=== PATIENT | female | born 1960 | race Caucasian/White ===

== ENCOUNTER 2016-05-11 13:35 | Emergency (ER) | payer MEDICARE, MEDICAID ==
[2016-05-11 15:29] VITALS: BP 140/95
--- NOTE | 2016-05-11 15:38 | UC ---
elena Gonzalez Timothy, scribed for Saritha Portillo MD on 05/11/16 at 1456 . Ear Complaint HPI - HPI Summary HPI Summary: Ruba Flores is a 55 yo female presenting to [facility] with left intermittent 6/10 ear pain for the past week, with itching. 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 She is on medication for HTN which she took earlier today. She states she feels like her ear is dry and itchy. She has not taken any medication for pain. 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 She also notes that her eyes are dry. Her Hx includes deafness, HLD, HTN, asthma, bronchitis, GERD per her mother, DM, bipolar disorder. - History of Current Complaint Chief Complaint: UCEar Stated Complaint: EAR PAIN Time Seen by Provider: 05/11/16 14:51 Hx Obtained From: Patient Hx Last Menstrual Period: "I don't get them any more." Onset/Duration: Gradual Onset, Lasting Weeks, Still Present Severity Initially: Moderate Severity Currently: Moderate Pain Intensity: 6 Pain Scale Used: 0-10 Numeric Aggravating Factors: Nothing Alleviating Factors: Nothing Associated Signs/Symptoms: Positive: Hearing Loss - chronic deafness Related History: Other (Noted In Comments) - pt is deaf - Allergies/Home Medications Allergies/Adverse Reactions: Allergies Allergy/AdvReac Type Severity Reaction Status Date / Time Clarithromycin [From Biaxin] Allergy Severe Rash Verified 05/11/16 15:16 Latex Allergy Severe Rash Verified 05/11/16 15:16 Morphine and Related Allergy Severe Unknown Verified 05/11/16 15:16 Reaction Details Penicillins Allergy Severe Rash Verified 05/11/16 15:16 Sulfa Drugs Allergy Severe Unknown Verified 05/11/16 15:16 Reaction Details Tramadol Allergy Severe Difficulty Verified 05/11/16 15:16 Breathing Acetaminophen [From Vicodin] AdvReac Severe Vomiting Verified 05/11/16 15:16 Hydrocodone [From Vicodin] AdvReac Severe Vomiting Verified 05/11/16 15:16 cillins Allergy Severe Unknown Uncoded 05/11/16 15:16 Reaction Details emycins Allergy Severe Unknown Uncoded 05/11/16 15:16 Reaction Details NUTS Allergy Severe Rash Uncoded 05/11/16 15:16 TAPE: SILK OR ADHESIVE Allergy Severe Rash Uncoded 05/11/16 15:16 Home Medications: Home Medications Atorvastatin* [Lipitor 10 MG*] 30 mg DAILY 05/11/16 [History Confirmed 05/11/16] Budesonide NEB* [Pulmicort Neb*] 05/11/16 [History] Losartan TAB* [Cozaar TAB*] 50 mg DAILY 05/11/16 [History Confirmed 05/11/16] Pioglitazone TAB* [Actos TAB*] 1 tab DAILY 05/11/16 [History Confirmed 05/11/16] Rizatriptan (NF) [Maxalt(NF)] 05/11/16 [History] PMH/Surg Hx/FS Hx/Imm Hx Endocrine History Of: Reports: Diabetes Cardiovascular History Of: Reports: Hypertension Respiratory History Of: Reports: Asthma, Bronchitis - Hx OF, LAST EPISODE POSSIBLY 2011 GI/ History Of: Reports: Gastroesophageal Reflux Psychological History Of: Reports: Bipolar Disorder - Surgical History Surgical History: Yes Surgery Procedure, Year, and Place: tonsils; breast reduction; tubal ligation; Gall Bladder, R wrist. LEFT Shoulder. Surgery under her Chin, Cant recall for what. right arm surgery 2013. pins removed from elbow 2014 - Family History Known Family History: Positive: Cardiac Disease, Hypertension, Diabetes, Other - Asthma - Social History Occupation: Disabled Alcohol Use: None Alcohol Amount: MAYBE A FEW A YEAR Substance Use Type: None Smoking Status (MU): Never Smoked Tobacco Have You Smoked in the Last Year: No When Did the Patient Quit Smoking/Using Tobacco: 2010 Household Exposure Type: Cigarettes - Immunization History Most Recent Influenza Vaccination: 12/09 Hx Tetanus, Diphtheria Vaccination: Yes Vaccination Up to Date: Yes Review of Systems Constitutional: Negative Skin: Negative Eyes: Other - eye dryness ENT: Ear Ache - Left Respiratory: Negative Cardiovascular: Negative Gastrointestinal: Negative Genitourinary: Negative Motor: Negative Neurovascular: Negative Musculoskeletal: Negative Neurological: Negative Psychological: Negative All Other Systems Reviewed And Are Negative: Yes Physical Exam Triage Information Reviewed: Yes Appearance: No Pain Distress, Well-Nourished, Ill-Appearing Vital Signs: Initial Vital Signs Temp 98.6 F 05/11/16 14:53 Pulse 71 05/11/16 14:53 Resp 18 05/11/16 14:53 BP 167/102 05/11/16 14:53 Pulse Ox 99 05/11/16 14:53 Elevated BP noted Vital Signs Reviewed: Yes Eyes: Positive: Conjunctiva Clear. Negative: Discharge ENT: Positive: TMs normal - Right side, TM red - left side. Negative: Hearing grossly normal Neck: Positive: Supple, Nontender, No Lymphadenopathy Respiratory: Positive: Lungs clear, Normal breath sounds, No respiratory distress Cardiovascular: Positive: RRR, No Murmur, Pulses Normal, Brisk Capillary Refill Musculoskeletal: Positive: Strength Intact, ROM Intact Neurological: Positive: Alert, Muscle Tone Normal Psychological Exam: Normal Skin: Positive: Other - hirsutism Re-Evaluation - Re-Evaluation First Eval Re-Evaluation Time: 15:28 Change: Improved Comment: Pt's BP is now 140/95 Ear Complaint Course/Dx - Course Course Of Treatment: Ruba Flores is a 55 yo deaf female presenting with 5/10 pain in her left ear for the past few weeks. In room, note high BP of 167/102. Her allergies are noted. After clinical examination, she will be discharged home with otitis media of the left ear and appropriate instructions. - Differential Dx/Diagnosis Provider Diagnoses: otitis media of the left ear Discharge - Discharge Plan Condition: Stable Disposition: HOME Prescriptions: DOXYcycline CAP(*) [DOXYcycline 100MG CAP(*)] 100 mg PO BID #20 cap Patient Education Materials: Otitis Media (ED) Referrals: Sapna Sinha MD [Primary Care Provider] - 2 Days Additional Instructions: Please follow up with your primary care physician within 2 days regarding your visit to urgent care today. When you go to picker operator your prescription, ask the pharmacist to show you the selection of saline eye drops to help with the dryness in your eyes. Return to urgent care or the emergency department with any new or recurring symptoms. The documentation as recorded by the elena martins Timothy accurately reflects the service I personally performed and the decisions made by , Saritha Portillo MD.
== END 2016-05-11 15:45 | disposition home or self-care (01) ==
LOC: UCEAST 13:35
DX: H66.92 Otitis media, unspecified, left ear (principal); H91.90 Unspecified hearing loss, unspecified ear; I10 Essential (primary) hypertension; Z88.1 Allergy status to other antibiotic agents; Z88.5 Allergy status to narcotic agent; Z88.0 Allergy status to penicillin; Z88.2 Allergy status to sulfonamides; Z77.22 Contact with and (suspected) exposure to environmental tobacco smoke (acute) (chronic)
CPT/HCPCS: 99212; G0463

== ENCOUNTER 2016-05-21 19:11 | Emergency (ER) | payer MEDICARE, MEDICAID ==
[2016-05-21 20:17] VITALS: BP 122/62
[2016-05-21] MEDS ORDERED: DOXYcycline CAP(*) 100 MG PO ONE (20:59)
--- NOTE | 2016-05-21 21:09 | UC ---
Ear Complaint HPI - History of Current Complaint Chief Complaint: UCEar Stated Complaint: EAR ACHE Time Seen by Provider: 05/21/16 20:42 Hx Obtained From: Patient, [employer] - via iPad ([place] Sign Language) Hx Last Menstrual Period: "I don't get them any more." Onset/Duration: Gradual Onset - has had L earche for 1 week, no better and today she feels "throbbing" in L ear Severity Initially: Mild Severity Currently: Moderate Associated Signs/Symptoms: Negative: Discharge, URI Symptoms - Allergies/Home Medications Allergies/Adverse Reactions: Allergies Allergy/AdvReac Type Severity Reaction Status Date / Time Clarithromycin [From Biaxin] Allergy Severe Rash Verified 05/11/16 15:16 Latex Allergy Severe Rash Verified 05/11/16 15:16 Morphine and Related Allergy Severe Unknown Verified 05/11/16 15:16 Reaction Details Penicillins Allergy Severe Rash Verified 05/11/16 15:16 Sulfa Drugs Allergy Severe Unknown Verified 05/11/16 15:16 Reaction Details Tramadol Allergy Severe Difficulty Verified 05/11/16 15:16 Breathing Acetaminophen [From Vicodin] AdvReac Severe Vomiting Verified 05/11/16 15:16 Hydrocodone [From Vicodin] AdvReac Severe Vomiting Verified 05/11/16 15:16 cillins Allergy Severe Unknown Uncoded 05/11/16 15:16 Reaction Details emycins Allergy Severe Unknown Uncoded 05/11/16 15:16 Reaction Details NUTS Allergy Severe Rash Uncoded 05/11/16 15:16 TAPE: SILK OR ADHESIVE Allergy Severe Rash Uncoded 05/11/16 15:16 PMH/Surg Hx/FS Hx/Imm Hx Previously Healthy: Yes Endocrine History Of: Reports: Diabetes Denies: Thyroid Disease, Hyperthyroidism, Hypothyroidism, Dyslipidemia Cardiovascular History Of: Reports: Hypertension Denies: Cardiac Disorders, Pacemaker/ICD, Myocardial Infarction, Congestive Heart Failure, Atrial Fibrillation, Deep Vein Thrombosis, Bleeding Disorders Respiratory History Of: Reports: Asthma, Bronchitis - Hx OF, LAST EPISODE POSSIBLY 2011 Denies: COPD, Pneumonia, Pulmonary Embolism GI/ History Of: Reports: Gastroesophageal Reflux Denies: Ulcer, Gastrointestinal Bleed, Gall Bladder Disease, Kidney Stones, Diverticulitis, Renal Disease, Urosepsis Neurological History Of: Denies: TIA, CVA, Dementia, Seizures, Migraine Psychological History Of: Reports: Bipolar Disorder Denies: Anxiety, Depression, Schizophrenia, Post Traumatic Stress Disorder Cancer History Of: Denies: Lung Cancer, Colorectal Cancer, Breast Cancer, Prostate Cancer, Cervical Cancer Other History Of: Negative For: HIV, Hepatitis B, Hepatitis C, Anticoagulant Therapy - Surgical History Surgical History: Yes Surgery Procedure, Year, and Place: tonsils; breast reduction; tubal ligation; Gall Bladder, R wrist. LEFT Shoulder. Surgery under her Chin, Cant recall for what. right arm surgery 2013. pins removed from elbow 2014 - Family History Known Family History: Positive: Cardiac Disease, Hypertension, Diabetes, Other - Asthma - Social History Occupation: Disabled Lives: With Family Alcohol Use: None Alcohol Amount: MAYBE A FEW A YEAR Substance Use Type: None Smoking Status (MU): Never Smoked Tobacco Have You Smoked in the Last Year: No When Did the Patient Quit Smoking/Using Tobacco: 2010 Household Exposure Type: Cigarettes - Immunization History Most Recent Influenza Vaccination: 12/09 Hx Tetanus, Diphtheria Vaccination: Yes Vaccination Up to Date: Yes Review of Systems Constitutional: Negative Eyes: Negative ENT: Ear Ache Respiratory: Negative Cardiovascular: Negative Gastrointestinal: Negative Neurological: Negative Psychological: Negative All Other Systems Reviewed And Are Negative: Yes Physical Exam Triage Information Reviewed: Yes Appearance: Well-Appearing, No Pain Distress, Well-Nourished - redaing book on arrival Vital Signs: Initial Vital Signs Temp 98.4 F 05/21/16 20:11 Pulse 56 05/21/16 20:11 Resp 18 05/21/16 20:11 BP 122/62 05/21/16 20:11 Pulse Ox 100 05/21/16 20:11 Vital Signs Reviewed: Yes Eyes: Positive: Conjunctiva Clear ENT: Positive: Pharynx normal, TM bulging - Left TM-slightly injected R ear pearly, normal light reflex, TM dull. Negative: Nasal congestion Neck exam: Normal Neck: Positive: No Lymphadenopathy Respiratory Exam: Normal Respiratory: Positive: Lungs clear Cardiovascular Exam: Normal Cardiovascular: Positive: RRR Neurological: Positive: Alert Psychological Exam: Normal Skin Exam: Normal Ear Complaint Course/Dx - Differential Dx/Diagnosis Differential Diagnosis/HQI/PQRI: Cerumen Impaction, Foreign Body, Otitis Externa , Otitis Media, URI Provider Diagnoses: otalgia Discharge - Discharge Plan Condition: Good Disposition: HOME Prescriptions: DOXYcycline CAP(*) [DOXYcycline 100MG CAP(*)] 100 mg PO BID #20 cap Patient Education Materials: Earache (ED) Referrals: Sapna Sinha MD [Primary Care Provider] - 5 Days (if no better) Additional Instructions: take antibiotic as directed
== END 2016-05-21 21:25 | disposition home or self-care (01) ==
LOC: UCEAST 19:11
DX: H92.09 Otalgia, unspecified ear (principal); Z90.49 Acquired absence of other specified parts of digestive tract; Z88.1 Allergy status to other antibiotic agents; Z88.5 Allergy status to narcotic agent; Z88.6 Allergy status to analgesic agent; Z88.0 Allergy status to penicillin; Z88.2 Allergy status to sulfonamides; Z87.891 Personal history of nicotine dependence
CPT/HCPCS: 99212; A9270-GY; G0463

== ENCOUNTER 2016-06-11 18:49 | Emergency (ER) | payer MEDICARE ==
[2016-06-11 20:54] VITALS: BP 150/90
--- NOTE | 2016-06-11 20:57 | UC ---
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 [place] Sign Hx Last Menstrual Period: "I don't get them any more." ?: No Onset/Duration: Sudden Onset, Lasting Weeks, Still Present Timing: Constant Onset Severity: Moderate Current Severity: Moderate Location: Discrete - lower abdomen and labia Character: Pain, Redness Aggravating: Nothing Alleviating: Nothing Associated Signs & Symptoms: Positive: Rash - lower abdomen-diffuse erythema with scratch mcf[place], right and labia majoria, irratated and red - Allergy/Home Medications Allergies/Adverse Reactions: Allergies Allergy/AdvReac Type Severity Reaction Status Date / Time Clarithromycin [From Biaxin] Allergy Severe Rash Verified 06/11/16 20:57 Latex Allergy Severe Rash Verified 06/11/16 20:57 Morphine and Related Allergy Severe Unknown Verified 06/11/16 20:57 Reaction Details Penicillins Allergy Severe Rash Verified 06/11/16 20:57 Sulfa Drugs Allergy Severe Unknown Verified 06/11/16 20:57 Reaction Details Tramadol Allergy Severe Difficulty Verified 06/11/16 20:57 Breathing Acetaminophen [From Vicodin] AdvReac Severe Vomiting Verified 06/11/16 20:57 Hydrocodone [From Vicodin] AdvReac Severe Vomiting Verified 06/11/16 20:57 cillins Allergy Severe Unknown Uncoded 06/11/16 20:57 Reaction Details emycins Allergy Severe Unknown Uncoded 06/11/16 20:57 Reaction Details NUTS Allergy Severe Rash Uncoded 06/11/16 20:57 TAPE: SILK OR ADHESIVE Allergy Severe Rash Uncoded 06/11/16 20:57 Review of Systems Constitutional: Negative Skin: Rash Eyes: Negative ENT: Negative Respiratory: Negative Cardiovascular: Negative Gastrointestinal: Negative Genitourinary: Negative Motor: Negative Neurovascular: Negative Musculoskeletal: Negative Neurological: Negative Psychological: Negative All Other Systems Reviewed And Are Negative: Yes PMH/Surg Hx/FS Hx/Imm Hx Previously Healthy: No Endocrine History Of: Reports: Diabetes Denies: Thyroid Disease, Hyperthyroidism, Hypothyroidism, Dyslipidemia Cardiovascular History Of: Reports: Hypertension Denies: Cardiac Disorders, Pacemaker/ICD, Myocardial Infarction, Congestive Heart Failure, Atrial Fibrillation, Deep Vein Thrombosis, Bleeding Disorders Respiratory History Of: Reports: Asthma, Bronchitis - Hx OF, LAST EPISODE POSSIBLY 2011 Denies: COPD, Pneumonia, Pulmonary Embolism GI/ History Of: Reports: Gastroesophageal Reflux Denies: Ulcer, Gastrointestinal Bleed, Gall Bladder Disease, Kidney Stones, Diverticulitis, Renal Disease, Urosepsis Neurological History Of: Denies: TIA, CVA, Dementia, Seizures, Migraine Psychological History Of: Reports: Bipolar Disorder Denies: Anxiety, Depression, Schizophrenia, Post Traumatic Stress Disorder Cancer History Of: Denies: Lung Cancer, Colorectal Cancer, Breast Cancer, Prostate Cancer, Cervical Cancer Other History Of: Negative For: HIV, Hepatitis B, Hepatitis C, Anticoagulant Therapy - Surgical History Surgical History: Yes Surgery Procedure, Year, and Place: tonsils; breast reduction; tubal ligation; Gall Bladder, R wrist. LEFT Shoulder. Surgery under her Chin, Cant recall for what. right arm surgery 2013. pins removed from elbow 2014 - Family History Known Family History: Positive: Cardiac Disease, Hypertension, Diabetes, Other - Asthma - Social History Occupation: Disabled Lives: With Family Alcohol Use: None Alcohol Amount: MAYBE A FEW A YEAR Substance Use Type: None Smoking Status (MU): Never Smoked Tobacco Have You Smoked in the Last Year: No When Did the Patient Quit Smoking/Using Tobacco: 2010 Household Exposure Type: Cigarettes - Immunization History Most Recent Influenza Vaccination: 12/09 Hx Tetanus, Diphtheria Vaccination: Yes Vaccination Up to Date: Yes Physical Exam Triage Information Reviewed: Yes Appearance: Well-Appearing, No Pain Distress, Well-Nourished Vital Signs: Initial Vital Signs Temp 97.1 F 06/11/16 20:44 Pulse 67 06/11/16 20:44 Resp 16 06/11/16 20:44 BP 150/90 06/11/16 20:44 Pulse Ox 100 06/11/16 20:44 Vital Signs Reviewed: Yes Eye Exam: Normal Eyes: Positive: Conjunctiva Clear ENT Exam: Normal ENT: Positive: Normal ENT inspection, Hearing grossly normal, TMs normal. Negative: Nasal congestion, Nasal drainage, Trismus, Muffled/hoarse voice Neck exam: Normal Neck: Positive: Supple, Nontender, No Lymphadenopathy Respiratory Exam: Normal Respiratory: Positive: Chest non-tender, No respiratory distress, No accessory muscle use Cardiovascular Exam: Normal Cardiovascular: Positive: RRR, No Murmur, Pulses Normal Musculoskeletal Exam: Normal Musculoskeletal: Positive: Strength Intact, ROM Intact, No Edema Neurological Exam: Normal Neurological: Positive: Alert, Muscle Tone Normal Psychological Exam: Normal Skin Exam: Normal Skin: Positive: rashes Course/Dx - Course Course Of Treatment: triamcin, for abdomen, nystatin for labia, gentle soap and water wash follow with Dr. Sinha in 7-10 days - Differential Diagnoses - Skin Complaint Differential Diagnoses: Cellulitis, Contact Dermatitis, Impetigo, Local Allergic Reaction - Diagnoses Provider Diagnoses: dermititis labia and lower abdomen Discharge - Discharge Plan Condition: Stable Disposition: HOME Prescriptions: Nystatin TOP POWDER* 1 applic TOPICAL TID #1 btl Triamcinolone 0.1% CREAM(NF) [Kenalog Cream 0.1%(NF)] 1 applic TOPICAL TID #45 gm Patient Education Materials: Hydrocortisone (On the skin), Vulvovaginal Candidiasis (ED), Dermatitis (ED) Referrals: Sapna Sinha MD [Primary Care Provider] - If Needed
== END 2016-06-11 21:53 | disposition home or self-care (01) ==
LOC: UCEAST 18:49
DX: L30.9 Dermatitis, unspecified (principal); Z88.5 Allergy status to narcotic agent; Z88.2 Allergy status to sulfonamides; Z88.0 Allergy status to penicillin
CPT/HCPCS: 99212; G0463

== ENCOUNTER 2016-08-26 21:07 | Emergency (ER) | payer MEDICARE, MEDICAID ==
[2016-08-26 21:30] VITALS: BP 127/75
--- NOTE | 2016-08-26 21:42 | UC ---
Ear Complaint HPI - HPI Summary HPI Summary: 2 weeks of ear pressure no fevers or sore throat - History of Current Complaint Chief Complaint: UCEar Stated Complaint: EAR PAIN AND PRESSURE Time Seen by Provider: 08/26/16 21:31 Hx Obtained From: Patient Hx Last Menstrual Period: "I don't get them any more." ?: No Onset/Duration: Gradual Onset, Lasting Weeks - 2, Still Present Severity Initially: Moderate Severity Currently: Moderate Pain Intensity: 5 Pain Scale Used: 0-10 Numeric Aggravating Factors: Nothing Alleviating Factors: Nothing - Allergies/Home Medications Allergies/Adverse Reactions: Allergies Allergy/AdvReac Type Severity Reaction Status Date / Time Clarithromycin [From Biaxin] Allergy Severe Rash Verified 08/26/16 21:56 Latex Allergy Severe Rash Verified 08/26/16 21:56 Morphine and Related Allergy Severe Unknown Verified 08/26/16 21:56 Reaction Details Penicillins Allergy Severe Rash Verified 08/26/16 21:56 Sulfa Drugs Allergy Severe Unknown Verified 08/26/16 21:56 Reaction Details Tramadol Allergy Severe Difficulty Verified 08/26/16 21:56 Breathing Acetaminophen [From Vicodin] AdvReac Severe Vomiting Verified 08/26/16 21:56 Hydrocodone [From Vicodin] AdvReac Severe Vomiting Verified 08/26/16 21:56 cillins Allergy Severe Unknown Uncoded 08/26/16 21:56 Reaction Details emycins Allergy Severe Unknown Uncoded 08/26/16 21:56 Reaction Details NUTS Allergy Severe Rash Uncoded 08/26/16 21:56 TAPE: SILK OR ADHESIVE Allergy Severe Rash Uncoded 08/26/16 21:56 PMH/Surg Hx/FS Hx/Imm Hx Previously Healthy: No Endocrine History: Diabetes, Dyslipidemia GI/ History: Gastroesophageal Reflux Other History Of: Negative For: HIV, Hepatitis B, Hepatitis C, Anticoagulant Therapy - Surgical History Surgical History: Yes Surgery Procedure, Year, and Place: tonsils; breast reduction; tubal ligation; Gall Bladder, R wrist. LEFT Shoulder. Surgery under her Chin, Cant recall for what. right arm surgery 2013. pins removed from elbow 2014 - Family History Known Family History: Positive: Cardiac Disease, Hypertension, Diabetes, Other - Asthma - Social History Occupation: Disabled Lives: With Family Alcohol Use: None Alcohol Amount: MAYBE A FEW A YEAR Substance Use Type: None Smoking Status (MU): Never Smoked Tobacco Have You Smoked in the Last Year: No When Did the Patient Quit Smoking/Using Tobacco: 2010 Household Exposure Type: Cigarettes - Immunization History Most Recent Influenza Vaccination: 12/09 Hx Tetanus, Diphtheria Vaccination: Yes Vaccination Up to Date: Yes Review of Systems Constitutional: Negative Skin: Negative Eyes: Negative ENT: Ear Ache Respiratory: Negative Cardiovascular: Negative Gastrointestinal: Negative Genitourinary: Negative Motor: Negative Neurovascular: Negative Musculoskeletal: Negative Neurological: Negative Psychological: Negative All Other Systems Reviewed And Are Negative: Yes Physical Exam Triage Information Reviewed: Yes Appearance: No Pain Distress, Ill-Appearing - chronic, Obese Vital Signs: Initial Vital Signs Temp 97.9 F 08/26/16 21:27 Pulse 84 08/26/16 21:27 Resp 18 08/26/16 21:27 BP 127/75 08/26/16 21:27 Pulse Ox 99 08/26/16 21:27 Vital Signs Reviewed: Yes Eye Exam: Normal Eyes: Positive: Conjunctiva Clear ENT Exam: Normal ENT: Positive: Normal ENT inspection, Hearing grossly normal, Pharynx normal, Nasal congestion, Nasal drainage, TM dull. Negative: Tonsillar swelling, Tonsillar exudate, Trismus, Muffled/hoarse voice Dental Exam: Other - no teeth Neck exam: Normal Neck: Positive: Supple, Nontender Respiratory Exam: Normal Respiratory: Positive: Chest non-tender, No respiratory distress, No accessory muscle use Cardiovascular Exam: Normal Cardiovascular: Positive: RRR, Pulses Normal, Brisk Capillary Refill Musculoskeletal Exam: Normal Musculoskeletal: Positive: Strength Intact, ROM Intact, No Edema Neurological Exam: Normal Neurological: Positive: Alert, Muscle Tone Normal Psychological Exam: Normal Skin Exam: Normal Ear Complaint Course/Dx - Course Course Of Treatment: flonase, zyrtec , increase fluids follow with pcp - Differential Dx/Diagnosis Differential Diagnosis/HQI/PQRI: Otitis Externa, Otitis Media, Trauma, URI Provider Diagnoses: B/l Serrous otitis, Hearing impaired Discharge - Discharge Plan Condition: Stable Disposition: HOME Prescriptions: Cetirizine HCl [Zyrtec Allergy 10 MG TAB] 10 mg PO DAILY #30 cap Fluticasone NASAL SPRAY 50MCG* [Flonase NASAL SPRAY 50MCG*] 2 spray BOTH NARES DAILY #1 btl Patient Education Materials: Serous Otitis Media (ED), How to Use Nasal [place] ( ED) Referrals: Sapna Sinha MD [Primary Care Provider] - 1 Week
== END 2016-08-26 22:30 | disposition home or self-care (01) ==
LOC: UCEAST 21:07
DX: H65.03 Acute serous otitis media, bilateral (principal); H91.90 Unspecified hearing loss, unspecified ear
CPT/HCPCS: 99211; G0463

== ENCOUNTER 2016-09-17 15:33 | Emergency (ER) | payer MEDICARE, MEDICAID ==
--- NOTE | 2016-09-17 17:27 | UC ---
Complaint Female HPI - HPI Summary HPI Summary: 2-3 DAYS OF BURNING WITH URINATION, URINARY FREQUENCY AND URGENCY. MILD ABDOMINAL PAIN. NO FEVER, NAUSEA OR BACK PAIN. - History Of Current Complaint Chief Complaint: UCGU Stated Complaint: BURNING URINATION Time Seen by Provider: 09/17/16 16:48 Hx Obtained From: Patient Hx Last Menstrual Period: "I don't get them any more." Onset/Duration: Gradual Onset, Lasting Days, Still Present Timing: Constant Severity Initially: Moderate Severity Currently: Moderate Pain Intensity: 6 Pain Scale Used: 0-10 Numeric Character: Burning Aggravating Factor(s): Urination Alleviating Factor(s): Nothing Associated Signs And Symptoms: Positive: Negative - Allergies/Home Medications Allergies/Adverse Reactions: Allergies Allergy/AdvReac Type Severity Reaction Status Date / Time Clarithromycin [From Biaxin] Allergy Severe Rash Verified 09/17/16 17:16 Latex Allergy Severe Rash Verified 09/17/16 17:16 Morphine and Related Allergy Severe Unknown Verified 09/17/16 17:16 Reaction Details Penicillins Allergy Severe Rash Verified 09/17/16 17:16 Sulfa Drugs Allergy Severe Unknown Verified 09/17/16 17:16 Reaction Details Tramadol Allergy Severe Difficulty Verified 09/17/16 17:16 Breathing Acetaminophen [From Vicodin] AdvReac Severe Vomiting Verified 09/17/16 17:16 Hydrocodone [From Vicodin] AdvReac Severe Vomiting Verified 09/17/16 17:16 cillins Allergy Severe Unknown Uncoded 09/17/16 17:16 Reaction Details emycins Allergy Severe Unknown Uncoded 09/17/16 17:16 Reaction Details NUTS Allergy Severe Rash Uncoded 09/17/16 17:16 TAPE: SILK OR ADHESIVE Allergy Severe Rash Uncoded 09/17/16 17:16 PMH/Surg Hx/FS Hx/Imm Hx Endocrine History: Diabetes Cardiovascular History: Hypertension Respiratory History: Asthma Other History Of: Negative For: HIV, Hepatitis B, Hepatitis C, Anticoagulant Therapy - Surgical History Surgical History: Yes Surgery Procedure, Year, and Place: tonsils; breast reduction; tubal ligation; Gall Bladder, R wrist. LEFT Shoulder. Surgery under her Chin, Cant recall for what. right arm surgery 2013. pins removed from elbow 2014 - Family History Known Family History: Positive: Cardiac Disease, Hypertension, Diabetes, Other - Asthma - Social History Alcohol Use: None Alcohol Amount: MAYBE A FEW A YEAR Substance Use Type: None Smoking Status (MU): Never Smoked Tobacco Have You Smoked in the Last Year: No When Did the Patient Quit Smoking/Using Tobacco: 2010 Household Exposure Type: Cigarettes - Immunization History Most Recent Influenza Vaccination: 12/09 Hx Tetanus, Diphtheria Vaccination: Yes Vaccination Up to Date: Yes Review of Systems Constitutional: Negative Respiratory: Negative Cardiovascular: Negative Gastrointestinal: Abdominal Pain Genitourinary: Dysuria, Frequency, Urgency All Other Systems Reviewed And Are Negative: Yes Physical Exam Triage Information Reviewed: Yes Appearance: Well-Appearing, No Pain Distress, Well-Nourished Vital Signs Reviewed: Yes Eyes: Positive: Conjunctiva Clear Neck: Positive: Supple Respiratory: Positive: No respiratory distress, No accessory muscle use Cardiovascular: Positive: Pulses Normal Abdomen Description: Positive: Nontender, Soft. Negative: CVA Tenderness (R), CVA Tenderness (L), Distended, Guarding Musculoskeletal: Positive: No Edema Neurological: Positive: Alert Psychological: Positive: Age Appropriate Behavior Skin: Negative: rashes Diagnostics - Laboratory Diagnostic Studies Completed/Ordered: URINE DIP SP GR. 1.030, 2+ LEUKS, 1+ PROTEIN Complaint Female Dx - Differential Dx/Diagnosis Provider Diagnoses: UTI Discharge - Discharge Plan Condition: Stable Disposition: HOME Prescriptions: Ciprofloxacin TAB* [Cipro 500 MG TAB*] 500 mg PO BID #10 tab Phenazopyridine TAB* [Pyridium TAB*] 200 mg PO TID #6 tab Patient Education Materials: Urinary Tract Infection in Women (ED) Referrals: Sapna Sinha MD [Primary Care Provider] - If Needed Additional Instructions: TAKE THE CIPRO FOR THE FULL 5 DAYS. I HAVE ALSO SENT IN A PRESCRIPTION FOR PYRIDIUM. THIS IS A BLADDER ANESTHETIC. IT MAKES THE DISCOMFORT LESS. IT ALSO TURNS YOUR URINE BRIGHT ORANGE. IF YOU DO NOT FEEL LIKE YOU NEED IT YOU DO NOT NEED TO GET IT, BUT IT IS THERE IF YOU WANT IT.
[2016-09-17 17:28] VITALS: BP 97/77
== END 2016-09-17 17:49 | disposition home or self-care (01) ==
LOC: UCEAST 15:33
DX: N39.0 Urinary tract infection, site not specified (principal); E11.9 Type 2 diabetes mellitus without complications; I10 Essential (primary) hypertension; J45.909 Unspecified asthma, uncomplicated; Z90.49 Acquired absence of other specified parts of digestive tract; Z88.5 Allergy status to narcotic agent; Z88.6 Allergy status to analgesic agent; Z88.0 Allergy status to penicillin; Z88.2 Allergy status to sulfonamides; Z88.1 Allergy status to other antibiotic agents; Z91.040 Latex allergy status; Z87.891 Personal history of nicotine dependence
CPT/HCPCS: 81003; 87086; 99212; G0463

== ENCOUNTER 2016-10-14 11:07 | Emergency (ER) | payer MEDICARE, MEDICAID ==
--- NOTE | 2016-10-14 13:35 | UC ---
Ear Complaint HPI - HPI Summary HPI Summary: PT SEEN BY PCP ABOUT 2 MONTHS AGO AND DX WITH SINUS INFECTION. SX HAVE PERSISTED AND PT STATES HER PCP ADVISED HER TO USE A NASAL SPRAY. SHE WENT TO PHARMACY AND PHARMACIST SUGGESTED AFRIN. PT STATES SHE DOES NOT THINK IT IS WORKING. IT "SORIANO" AND FEELS IT IS MAKING THINGS WORSE. NO FEVERS. NOSE IS NOT CONGESTED BUT STATES HER LEFT EAR POPS AND SHE FEELS LIKE SHE HAS PND. - History of Current Complaint Chief Complaint: UCRespiratory Stated Complaint: EAR COMPLAINT Time Seen by Provider: 10/14/16 12:56 Hx Obtained From: Patient Hx Last Menstrual Period: "I don't get them any more." Onset/Duration: Lasting Weeks, Still Present Severity Initially: Moderate Severity Currently: Moderate Pain Intensity: 0 Pain Scale Used: 0-10 Numeric Alleviating Factors: Nothing Associated Signs/Symptoms: Positive: URI Symptoms - Allergies/Home Medications Allergies/Adverse Reactions: Allergies Allergy/AdvReac Type Severity Reaction Status Date / Time Clarithromycin [From Biaxin] Allergy Severe Rash Verified 10/14/16 12:33 Latex Allergy Severe Rash Verified 10/14/16 12:33 Morphine and Related Allergy Severe Unknown Verified 10/14/16 12:33 Reaction Details Penicillins Allergy Severe Rash Verified 10/14/16 12:33 Sulfa Drugs Allergy Severe Unknown Verified 10/14/16 12:33 Reaction Details Tramadol Allergy Severe Difficulty Verified 10/14/16 12:33 Breathing Acetaminophen [From Vicodin] AdvReac Severe Vomiting Verified 10/14/16 12:33 Hydrocodone [From Vicodin] AdvReac Severe Vomiting Verified 10/14/16 12:33 cillins Allergy Severe Unknown Uncoded 10/14/16 12:33 Reaction Details emycins Allergy Severe Unknown Uncoded 10/14/16 12:33 Reaction Details NUTS Allergy Severe Rash Uncoded 10/14/16 12:33 TAPE: SILK OR ADHESIVE Allergy Severe Rash Uncoded 10/14/16 12:33 PMH/Surg Hx/FS Hx/Imm Hx - Additional Past Medical History Additional PMH: ALLERGIES Endocrine History: Diabetes Cardiovascular History: Hypertension Respiratory History: Asthma Other History Of: Negative For: HIV, Hepatitis B, Hepatitis C, Anticoagulant Therapy - Surgical History Surgical History: Yes Surgery Procedure, Year, and Place: tonsils; breast reduction; tubal ligation; Gall Bladder, R wrist. LEFT Shoulder. Surgery under her Chin, Cant recall for what. right arm surgery 2013. pins removed from elbow 2015 - Family History Known Family History: Positive: Cardiac Disease, Hypertension, Diabetes, Other - Asthma - Social History Alcohol Use: None Alcohol Amount: MAYBE A FEW A YEAR Substance Use Type: None Smoking Status (MU): Never Smoked Tobacco Have You Smoked in the Last Year: No When Did the Patient Quit Smoking/Using Tobacco: 2010 Household Exposure Type: Cigarettes - Immunization History Most Recent Influenza Vaccination: 12/09 Hx Tetanus, Diphtheria Vaccination: Yes Vaccination Up to Date: Yes Review of Systems Constitutional: Negative ENT: Ear Ache Respiratory: Negative Cardiovascular: Negative Gastrointestinal: Negative All Other Systems Reviewed And Are Negative: Yes Physical Exam Triage Information Reviewed: Yes Appearance: Well-Appearing, No Pain Distress, Well-Nourished Vital Signs: Initial Vital Signs Temp 97.6 F 10/14/16 12:28 Pulse 83 10/14/16 12:28 Resp 16 10/14/16 12:28 BP 139/80 10/14/16 12:28 Pulse Ox 98 10/14/16 12:28 Vital Signs Reviewed: Yes Eyes: Positive: Conjunctiva Clear ENT: Positive: Pharynx normal, TMs normal Neck: Positive: Supple, Nontender, No Lymphadenopathy Respiratory Exam: Normal Cardiovascular Exam: Normal Abdomen Description: Positive: Soft Musculoskeletal: Positive: No Edema Neurological: Positive: Alert Psychological: Positive: Age Appropriate Behavior Skin: Negative: rashes Ear Complaint Course/Dx - Differential Dx/Diagnosis Provider Diagnoses: EUSTACHIAN TUBE DYSFUNCTION Discharge - Discharge Plan Condition: Stable Disposition: HOME Prescriptions: Cetirizine* [ZyrTEC 10 MG TAB*] 10 mg PO DAILY #30 tab Fluticasone NASAL SPRAY 50MCG* [Flonase NASAL SPRAY 50MCG*] 2 spray BOTH NARES DAILY #1 btl Referrals: Sapna Sinha MD [Primary Care Provider] - 2 Weeks Additional Instructions: EUSTACHIAN TUBE DYSFUNCTION What is the eustachian tube? The eustachian tube is a tube that connects the middle ear (the part of the ear behind the eardrum) to the back of the nose and throat (figure 1). Normally, the eustachian tube helps keep the air pressure inside the middle ear the same as the air pressure outside the middle ear. If there is a problem with the eustachian tube, the air pressure inside the middle ear won't be the same as the air pressure outside of it. This can damage the middle ear and cause ear pain, hearing loss, and other symptoms. "Ear barotrauma" is the medical term for when people have symptoms or damage in the middle ear because of air pressure differences. Most eustachian tube problems are not serious. They usually last only a short time and get better on their own. But eustachian tube problems sometimes lead to serious problems, such as: - A middle ear infection - A torn eardrum - Hearing loss Long-term hearing loss from eustachian tube problems can also lead to language or speech problems in children. What causes eustachian tube problems? Common causes of eustachian tube problems are: - Illnesses or conditions that make the eustachian tubes swollen or inflamed These include colds, allergies, ear infections, or sinus infections. The sinuses are hollow areas in the bones of the face. - Sudden air pressure changes Sudden air pressure changes can happen when people fly in an airplane, scuba dive, or drive in the mountains. - Growths that block the eustachian tube - Being born with an abnormal eustachian tube What are the symptoms of a eustachian tube problem? Common symptoms of a eustachian tube problem include: - Ear pain - Feeling pressure or fullness in the ear - Trouble hearing - Ringing in the ear - Feeling dizzy Should I see a doctor or nurse? See your doctor or nurse if your symptoms are severe, get worse, or if they don't go away after a few days. Will I need tests? Probably not. Your doctor or nurse should be able to tell if you have a eustachian tube problem by learning about your symptoms and doing an exam. If your symptoms are severe or last for a long time, your doctor or nurse might: - Have you see a special kind of doctor called an ear, nose, and throat doctor - Do tests to check your hearing - Do an imaging test Imaging tests can create pictures of the inside of the body. How are eustachian tube problems treated? Treatment depends on what's causing the eustachian tube problem. Depending on your individual situation, your doctor might treat you with one or more of the following: - Nose sprays - Antihistamines These medicines are usually used to treat allergies. They help stop itching, sneezing, and runny nose symptoms. - Decongestants These medicines can help with stuffy nose symptoms. - Surgery Most people do not need surgery for eustachian tube problems. But people might need surgery if their symptoms don't get better with medicines or they have severe or long-term symptoms. Antibiotics are not needed to treat eustachian tube problems.
[2016-10-14 13:39] VITALS: BP 133/69
== END 2016-10-14 13:49 | disposition home or self-care (01) ==
LOC: UCEAST 11:07
DX: H69.80 Other specified disorders of Eustachian tube, unspecified ear (principal); E11.9 Type 2 diabetes mellitus without complications; I10 Essential (primary) hypertension
CPT/HCPCS: 99212; G0463

== ENCOUNTER 2017-01-12 11:08 | Emergency (ER) | payer MEDICARE, MEDICAID ==
[2017-01-12 12:23] VITALS: BP 159/92
--- NOTE | 2017-01-12 12:52 | UC ---
Complaint Female HPI - HPI Summary HPI Summary: This is a 56 yo female who presents with c/o vaginal itching. She denies assoc vag d/c, abd pain. Urinary freq, hematuria, or dysuria. No n/v. She has had similar symptoms in the past and been told it was d/t vaginal dryness and used an unspecified cream with some improvement. - History Of Current Complaint Chief Complaint: UCGU Stated Complaint: PERSONAL Hx Last Menstrual Period: "I don't get them any more." - Allergies/Home Medications Allergies/Adverse Reactions: Allergies Allergy/AdvReac Type Severity Reaction Status Date / Time Clarithromycin [From Biaxin] Allergy Severe Rash Verified 01/12/17 12:19 Latex Allergy Severe Rash Verified 01/12/17 12:19 Morphine and Related Allergy Severe Unknown Verified 01/12/17 12:19 Reaction Details Penicillins Allergy Severe Rash Verified 01/12/17 12:19 Sulfa Drugs Allergy Severe Unknown Verified 01/12/17 12:19 Reaction Details Tramadol Allergy Severe Difficulty Verified 01/12/17 12:19 Breathing Acetaminophen [From Vicodin] AdvReac Severe Vomiting Verified 01/12/17 12:19 Hydrocodone [From Vicodin] AdvReac Severe Vomiting Verified 01/12/17 12:19 cillins Allergy Severe Unknown Uncoded 01/12/17 12:19 Reaction Details emycins Allergy Severe Unknown Uncoded 01/12/17 12:19 Reaction Details NUTS Allergy Severe Rash Uncoded 01/12/17 12:19 TAPE: SILK OR ADHESIVE Allergy Severe Rash Uncoded 01/12/17 12:19 PMH/Surg Hx/FS Hx/Imm Hx Previously Healthy: No - deaf Endocrine History: Diabetes Cardiovascular History: Hypertension Respiratory History: Asthma Other History Of: Negative For: HIV, Hepatitis B, Hepatitis C, Anticoagulant Therapy - Surgical History Surgical History: Yes Surgery Procedure, Year, and Place: tonsils; breast reduction; tubal ligation; Gall Bladder, R wrist. LEFT Shoulder. Surgery under her Chin, Cant recall for what. right arm surgery 2013. pins removed from elbow 2014 - Family History Known Family History: Positive: Cardiac Disease, Hypertension, Diabetes, Other - Asthma - Social History Alcohol Use: None Alcohol Amount: MAYBE A FEW A YEAR Substance Use Type: None Smoking Status (MU): Never Smoked Tobacco Have You Smoked in the Last Year: No When Did the Patient Quit Smoking/Using Tobacco: 2010 Household Exposure Type: Cigarettes - Immunization History Most Recent Influenza Vaccination: 12/09 Hx Tetanus, Diphtheria Vaccination: Yes Vaccination Up to Date: Yes Review of Systems Constitutional: Negative Skin: Negative Eyes: Negative ENT: Negative Respiratory: Negative Cardiovascular: Negative Gastrointestinal: Negative Genitourinary: Vaginal/Penile Itching Motor: Negative Neurovascular: Negative Musculoskeletal: Negative Neurological: Negative Psychological: Negative Is Patient Immunocompromised?: No All Other Systems Reviewed And Are Negative: Yes Physical Exam Triage Information Reviewed: Yes Appearance: Well-Appearing - accompanied by a hand sole sewer Vital Signs: Initial Vital Signs Temp 97.7 F 01/12/17 12:19 Pulse 77 01/12/17 12:19 Resp 18 01/12/17 12:19 BP 159/92 01/12/17 12:19 Pulse Ox 99 01/12/17 12:19 Vital Signs Reviewed: Yes ENT Exam: Normal Neck: Positive: Supple, Nontender Respiratory: Positive: Chest non-tender, Lungs clear, Normal breath sounds. Negative: Crackles, Rhonchi, Wheezing Cardiovascular: Positive: RRR, No Murmur Abdomen Description: Positive: Nontender, Soft Musculoskeletal: Positive: Strength Intact, ROM Intact Neurological: Positive: Alert Psychological Exam: Normal Skin Exam: Normal Skin: Negative: rashes - Additional Comments Vaginal exam: Pubic hair is thinned, vaginal tissue is shiny and taught. No rash or breakdown. No vaginal discharge. Cervical and bimanual exam not completed Complaint Female Dx - Course Course Of Treatment: This a 56 yo female who presents with c/o vaginal itching. No assoc dc and exam appeared c/w atrophic vaginitis. Recommended regular use of a personal lubricant to help with the discomfort, but if there are no contraindications she would benefit from a vaginal estrogen. Recommended that she discuss that with her PCP. - Differential Dx/Diagnosis Differential Diagnosis/HQI/PQRI: Cervicitis, Retained Foreign Body, Urinary Tract Infection Provider Diagnoses: 1. Atrophic vaginitis Discharge - Discharge Plan Condition: Stable Disposition: HOME Patient Education Materials: Vaginal Atrophy (ED) Referrals: Sapna Sinha MD [Primary Care Provider] - 1 Week Additional Instructions: Instructions: 1. Use a personal lubricant, applied to external vaginal structures 1-2 times daily to help with the discomfort 2. Ask your PCP about starting an estrogen cream that can help rehydrate the tissue
== END 2017-01-12 13:05 | disposition home or self-care (01) ==
LOC: UCEAST 11:08
DX: N95.2 Postmenopausal atrophic vaginitis (principal); E11.9 Type 2 diabetes mellitus without complications; J45.909 Unspecified asthma, uncomplicated; Z88.0 Allergy status to penicillin; Z88.2 Allergy status to sulfonamides; Z88.3 Allergy status to other anti-infective agents; Z88.5 Allergy status to narcotic agent; Z91.018 Allergy to other foods; Z91.040 Latex allergy status
CPT/HCPCS: 99212; G0463

== ENCOUNTER 2017-04-02 12:28 | Emergency (ER) | payer MEDICARE, MEDICAID ==
[2017-04-02 13:59] VITALS: BP 129/73
--- NOTE | 2017-04-02 14:26 | UC ---
Throat Pain/Nasal Tay HPI - HPI Summary HPI Summary: one week of sinus pain and left ear pain, cough sneeze no fever - History of Current Complaint Chief Complaint: UCRespiratory Stated Complaint: EAR PAIN HEADACHE HEAD CONGESTION Time Seen by Provider: 04/02/17 14:00 Hx Obtained From: Patient Hx Last Menstrual Period: "I don't get them any more." ?: No Onset/Duration: Sudden Onset, Lasting Weeks - 1, Still Present Severity: Moderate Cough: Nonproductive Associated Signs & Symptoms: Positive: Sinus Discomfort, Nasal Discharge - Allergies/Home Medications Allergies/Adverse Reactions: Allergies Allergy/AdvReac Type Severity Reaction Status Date / Time Clarithromycin [From Biaxin] Allergy Severe Rash Verified 04/02/17 13:51 Latex Allergy Severe Rash Verified 04/02/17 13:51 Morphine and Related Allergy Severe Unknown Verified 04/02/17 13:51 Reaction Details Penicillins Allergy Severe Rash Verified 04/02/17 13:51 Sulfa Drugs Allergy Severe Unknown Verified 04/02/17 13:51 Reaction Details Tramadol Allergy Severe Difficulty Verified 04/02/17 13:51 Breathing Acetaminophen [From Vicodin] AdvReac Severe Vomiting Verified 04/02/17 13:51 Hydrocodone [From Vicodin] AdvReac Severe Vomiting Verified 04/02/17 13:51 cillins Allergy Severe Unknown Uncoded 04/02/17 13:51 Reaction Details emycins Allergy Severe Unknown Uncoded 04/02/17 13:51 Reaction Details NUTS Allergy Severe Rash Uncoded 04/02/17 13:51 TAPE: SILK OR ADHESIVE Allergy Severe Rash Uncoded 04/02/17 13:51 PMH/Surg Hx/FS Hx/Imm Hx Previously Healthy: No Endocrine History: Diabetes Cardiovascular History: Hypertension Respiratory History: Asthma Psychological History: Other Other Psychological History: Deaf Other History Of: Negative For: HIV, Hepatitis B, Hepatitis C, Anticoagulant Therapy - Surgical History Surgical History: Yes Surgery Procedure, Year, and Place: tonsils; breast reduction; tubal ligation; Gall Bladder, R wrist. LEFT Shoulder. Surgery under her Chin, Cant recall for what. right arm surgery 2013. pins removed from elbow 2014 - Family History Known Family History: Positive: Cardiac Disease, Hypertension, Diabetes, Other - Asthma - Social History Occupation: Disabled Lives: Alone Alcohol Use: None Alcohol Amount: MAYBE A FEW A YEAR Substance Use Type: None Smoking Status (MU): Never Smoked Tobacco Have You Smoked in the Last Year: No When Did the Patient Quit Smoking/Using Tobacco: 2010 Household Exposure Type: Cigarettes - Immunization History Most Recent Influenza Vaccination: 12/09 Hx Tetanus, Diphtheria Vaccination: Yes Vaccination Up to Date: Yes Review of Systems Constitutional: Negative Skin: Negative Eyes: Negative ENT: Ear Ache, Nasal Discharge, Sinus Congestion Respiratory: Cough Cardiovascular: Negative Gastrointestinal: Negative Genitourinary: Negative Motor: Negative Neurovascular: Negative Musculoskeletal: Negative Neurological: Negative Psychological: Negative Is Patient Immunocompromised?: No All Other Systems Reviewed And Are Negative: Yes Physical Exam Triage Information Reviewed: Yes Appearance: No Pain Distress, Well-Nourished, Ill-Appearing - chronicly older than stated age Vital Signs: Initial Vital Signs Temp 97.7 F 04/02/17 13:57 Pulse 60 04/02/17 13:57 Resp 14 04/02/17 13:57 BP 129/73 04/02/17 13:57 Pulse Ox 92 04/02/17 13:57 Vital Signs Reviewed: Yes Eye Exam: Normal Eyes: Positive: Conjunctiva Clear ENT Exam: Normal ENT: Positive: Normal ENT inspection, Hearing grossly normal, Pharynx normal, Nasal congestion, Nasal drainage, TMs normal - right, TM red - left, Uvula midline. Negative: Tonsillar swelling, Trismus, Dental tenderness, Sinus tenderness Dental Exam: Normal Neck exam: Normal Neck: Positive: Supple, Nontender, No Lymphadenopathy Respiratory Exam: Normal Respiratory: Positive: Chest non-tender, Lungs clear, Normal breath sounds, No respiratory distress, No accessory muscle use Cardiovascular Exam: Normal Cardiovascular: Positive: RRR, No Murmur, Pulses Normal, Brisk Capillary Refill Musculoskeletal Exam: Normal Musculoskeletal: Positive: Strength Intact, ROM Intact, No Edema Neurological Exam: Normal Neurological: Positive: Alert, Muscle Tone Normal Psychological Exam: Normal Skin: Positive: rashes - dry scaling rash both elbows Throat Pain/Nasal Course/Dx - Course Assessment/Plan: doxic for 7 days, tylenol, ibuprofen, rest increase po fluids, clobetasol on rash for both forearms - Differential Dx/Diagnosis Provider Diagnoses: Left otitis media, exzema Discharge - Discharge Plan Condition: Stable Disposition: HOME Prescriptions: Clobetasol Propionate [Temovate] 0.05 % EX BID 14 Days #45 gm Doxycycline (Monohydrate) [Doxycycline Monohydrate] 100 mg PO BID #14 cap Fluconazole 150 MG (NF) [Diflucan 150 mg (NF)] 150 mg PO ONCE #1 tab Patient Education Materials: Ibuprofen (By mouth), Otitis Media (ED) Referrals: Sapna Sinha MD [Primary Care Provider] - If Needed
[2017-04-02] MEDS ORDERED: DOXYcycline CAP(*) 100 MG PO ONE (14:37)
== END 2017-04-02 15:04 | disposition home or self-care (01) ==
LOC: UCEAST 12:28
DX: H66.92 Otitis media, unspecified, left ear (principal); L30.9 Dermatitis, unspecified; E11.9 Type 2 diabetes mellitus without complications; I10 Essential (primary) hypertension; J45.909 Unspecified asthma, uncomplicated; H91.90 Unspecified hearing loss, unspecified ear; Z90.49 Acquired absence of other specified parts of digestive tract; Z90.89 Acquired absence of other organs; Z88.5 Allergy status to narcotic agent; Z88.0 Allergy status to penicillin; Z88.2 Allergy status to sulfonamides; Z88.6 Allergy status to analgesic agent; Z88.1 Allergy status to other antibiotic agents; Z91.040 Latex allergy status; Z77.22 Contact with and (suspected) exposure to environmental tobacco smoke (acute) (chronic)
CPT/HCPCS: 99212; A9270-GY; G0463

== ENCOUNTER 2017-04-14 16:31 | Emergency (ER) | payer MEDICARE, MEDICAID ==
[2017-04-14 17:07] VITALS: BP 150/79
--- NOTE | 2017-04-14 18:10 | UC ---
Ear Complaint HPI - History of Current Complaint Chief Complaint: UCEar Stated Complaint: EAR PAIN Time Seen by Provider: 04/14/17 18:02 Hx Last Menstrual Period: "I don't get them any more." - Allergies/Home Medications Allergies/Adverse Reactions: Allergies Allergy/AdvReac Type Severity Reaction Status Date / Time Clarithromycin [From Biaxin] Allergy Severe Rash Verified 04/14/17 17:07 Latex Allergy Severe Rash Verified 04/14/17 17:07 Morphine and Related Allergy Severe Unknown Verified 04/14/17 17:07 Reaction Details Penicillins Allergy Severe Rash Verified 04/14/17 17:07 Sulfa Drugs Allergy Severe Unknown Verified 04/14/17 17:07 Reaction Details Tramadol Allergy Severe Difficulty Verified 04/14/17 17:07 Breathing Acetaminophen [From Vicodin] AdvReac Severe Vomiting Verified 04/14/17 17:07 Hydrocodone [From Vicodin] AdvReac Severe Vomiting Verified 04/14/17 17:07 cillins Allergy Severe Unknown Uncoded 04/14/17 17:07 Reaction Details emycins Allergy Severe Unknown Uncoded 04/14/17 17:07 Reaction Details NUTS Allergy Severe Rash Uncoded 04/14/17 17:07 TAPE: SILK OR ADHESIVE Allergy Severe Rash Uncoded 04/14/17 17:07 PMH/Surg Hx/FS Hx/Imm Hx Previously Healthy: Yes Endocrine History: Diabetes, Dyslipidemia Cardiovascular History: Hypertension Respiratory History: Asthma Other History Of: Negative For: HIV, Hepatitis B, Hepatitis C, Anticoagulant Therapy - Surgical History Surgical History: Yes Surgery Procedure, Year, and Place: tonsils; breast reduction; tubal ligation; Gall Bladder, R wrist. LEFT Shoulder. Surgery under her Chin, Cant recall for what. right arm surgery 2014. pins removed from elbow 2015 - Family History Known Family History: Positive: Cardiac Disease, Hypertension, Diabetes, Other - Asthma - Social History Alcohol Use: None Alcohol Amount: MAYBE A FEW A YEAR Substance Use Type: None Smoking Status (MU): Never Smoked Tobacco Have You Smoked in the Last Year: No When Did the Patient Quit Smoking/Using Tobacco: 2010 Household Exposure Type: Cigarettes - Immunization History Most Recent Influenza Vaccination: 12/09 Hx Tetanus, Diphtheria Vaccination: Yes Vaccination Up to Date: Yes Review of Systems Constitutional: Negative Skin: Negative Eyes: Negative ENT: Ear Ache Respiratory: Cough Cardiovascular: Negative All Other Systems Reviewed And Are Negative: Yes Physical Exam Triage Information Reviewed: Yes Appearance: Well-Appearing Vital Signs: Initial Vital Signs Temp 97.5 F 04/14/17 17:01 Pulse 78 04/14/17 17:01 Resp 18 04/14/17 17:01 BP 150/79 04/14/17 17:01 Pulse Ox 99 04/14/17 17:01 Vital Signs Reviewed: Yes Eyes: Positive: Conjunctiva Clear ENT: Positive: Pharynx normal, Nasal congestion, TMs normal - TMs no bulging, no erythema. Scaring of both TM Neck exam: Normal Respiratory Exam: Normal Cardiovascular Exam: Normal Ear Complaint Course/Dx - Course Course Of Treatment: Continue PO fluids and rest. - Differential Dx/Diagnosis Provider Diagnoses: Eustachian tube dysfunction. History of URI Discharge - Discharge Plan Condition: Stable Disposition: HOME Patient Education Materials: Earache (ED) Referrals: Sapna Sinha MD [Primary Care Provider] -
== END 2017-04-14 18:15 | disposition home or self-care (01) ==
LOC: UCEAST 16:31
DX: H69.83 Other specified disorders of Eustachian tube, bilateral (principal); Z87.09 Personal history of other diseases of the respiratory system; Z88.1 Allergy status to other antibiotic agents; Z88.0 Allergy status to penicillin; Z88.2 Allergy status to sulfonamides; Z88.8 Allergy status to other drugs, medicaments and biological substances; Z91.040 Latex allergy status; Z88.5 Allergy status to narcotic agent; Z91.018 Allergy to other foods
CPT/HCPCS: 99212; G0463

== ENCOUNTER 2017-05-09 10:40 | Emergency (ER) | payer MEDICAID, MEDICARE ==
[2017-05-09 11:42] VITALS: BP 147/79
--- NOTE | 2017-05-09 12:22 | UC ---
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 WHILE AT WORK LAST NIGHT SHE TRIPPED OVER A ROPE AND LANDED ON THE FLOOR. STRUCK HER FACE, LEFT ELBOW AND BILATERAL KNEES. HAD A NOSEBLEED THAT STOPPED EASILY WITH PRESSURE. NO LOC. DENIES ROJAS, VISUAL DISTURBANCES OR NAUSEA. STATES NO FACIAL PAIN AT PRESENT. IS HERE C/O LEFT ELBOW PAIN AND BILATERAL KNEE PAIN RIGHT > LEFT. WORSE WITH WEIGHT BEARING. HAS ABRASIONS TO LEFT ELBOW AND LEFT KNEE. UTD TDAP 10/27/15. CALLED HER PCP AND WAS ADVISED TO COME HERE FOR EVAL. 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 Negative: Loss Of Consciousness - Allergies/Home Medications Allergies/Adverse Reactions: Allergies Allergy/AdvReac Type Severity Reaction Status Date / Time MS Clarithromycin Allergy Severe Rash Verified 04/14/17 17:07 [From Biaxin] MS Latex [Latex] Allergy Severe Rash Verified 04/14/17 17:07 MS Morphine and Related Allergy Severe Unknown Verified 04/14/17 17:07 [Morphine and Related] Reaction Details MS Penicillins [Penicillins] Allergy Severe Rash Verified 04/14/17 17:07 MS Sulfa Drugs [Sulfa Drugs] Allergy Severe Unknown Verified 04/14/17 17:07 Reaction Details MS Tramadol [Tramadol] Allergy Severe Difficulty Verified 04/14/17 17:07 Breathing MS Acetaminophen AdvReac Severe Vomiting Verified 04/14/17 17:07 [From Vicodin] MS Hydrocodone [From Vicodin] AdvReac Severe Vomiting Verified 04/14/17 17:07 cillins Allergy Severe Unknown Uncoded 04/14/17 17:07 Reaction Details emycins Allergy Severe Unknown Uncoded 04/14/17 17:07 Reaction Details NUTS Allergy Severe Rash Uncoded 04/14/17 17:07 TAPE: SILK OR ADHESIVE Allergy Severe Rash Uncoded 04/14/17 17:07 PMH/Surg Hx/FS Hx/Imm Hx Endocrine History: Diabetes Cardiovascular History: Hypertension Respiratory History: Asthma Other History Of: Negative For: HIV, Hepatitis B, Hepatitis C, Anticoagulant Therapy - Surgical History Surgical History: Yes Surgery Procedure, Year, and Place: tonsils; breast reduction; tubal ligation; Gall Bladder, R wrist. LEFT Shoulder. Surgery under her Chin, Cant recall for what. right arm surgery 2013. pins removed from elbow 2014 - Family History Known Family History: Positive: Cardiac Disease, Hypertension, Diabetes, Other - Asthma - Social History Alcohol Use: None Alcohol Amount: MAYBE A FEW A YEAR Substance Use Type: None Smoking Status (MU): Never Smoked Tobacco Have You Smoked in the Last Year: No When Did the Patient Quit Smoking/Using Tobacco: 2010 Household Exposure Type: Cigarettes - Immunization History Most Recent Influenza Vaccination: 12/09 Most Recent Tetanus Shot: unsure Hx Tetanus, Diphtheria Vaccination: Yes Vaccination Up to Date: Yes Review of Systems Constitutional: Negative Skin: Bruising, Other - ABRASIONS Respiratory: Negative Cardiovascular: Negative Gastrointestinal: Negative Musculoskeletal: Arthralgia All Other Systems Reviewed And Are Negative: Yes Physical Exam Triage Information Reviewed: Yes Appearance: Well-Appearing, No Pain Distress, Well-Nourished Vital Signs: Initial Vital Signs Temp 98.4 F 05/09/17 11:34 Pulse 82 05/09/17 11:34 Resp 20 05/09/17 11:34 BP 147/79 05/09/17 11:34 Pulse Ox 97 05/09/17 11:34 Vital Signs Reviewed: Yes Eyes: Positive: Conjunctiva Clear ENT: Positive: Hearing grossly normal, TMs normal, Other - NO TENDERNESS OVER FACIAL BONES/NASAL BRIDGE/ORBITS. GOOD AIR MOVEMENT BOTH NARES. Neck: Positive: Supple Respiratory: Positive: No respiratory distress, No accessory muscle use Cardiovascular: Positive: Pulses Normal Abdomen Description: Positive: Soft Musculoskeletal: Positive: ROM Intact, No Edema, Other: - MILDLY TENDER LEFT OLECRANON AND BILATERAL KNEES ANTERIORLY. NO JOINT LINE TENDERNESS OR TENDERNESS OVER ANY BONY PROMINENCES. MCL AND LCL INTACT TO STRESS TESTING. NEG DRAWERS SIGNS. NEG MCMURRAYS. NO TENDERNESS OVER QUADRICEPS TENDON. FULL ROM Neurological: Positive: Alert Psychological: Positive: Age Appropriate Behavior Skin: Positive: Other - SPFL ABRASIONS LEFT ELBOW AND LEFT KNEE Minor Trauma Course/Dx - Course Course Of Treatment: NO INDICATION FOR XRAYS TODAY. DISCUSSED CARE FOR ABRASIONS AND CONTUSIONS. NOTE FOR WORK PROVIDED. F/U NEEDED. - Differential Dx/Diagnosis Provider Diagnoses: 1. CONTUSIONS - LEFT ELBOW, BILATERAL KNEES. 2. ABRASIONS - LEFT ELBOW, LEFT KNEE Discharge - Discharge Plan Condition: Stable Disposition: HOME Patient Education Materials: Knee Sprain (ED), Contusion in Adults (ED), Abrasion (ED) Forms: *Work Release Referrals: Sapna Sinha MD [Primary Care Provider] - If Needed Additional Instructions: REST, ICE, COMPRESS, ELEVATE. MADELINE WRAPS APPLIED FOR YOUR COMFORT. IBUPROFEN/ TYLENOL NEEDED FOR PAIN. COVER ABRASIONS WITH THIN LAYER ANTIBIOTIC OINTMENT AND NONSTICK BANDAGE. FOLLOW-UP WITH YOUR PCP IF NEEDED.
== END 2017-05-09 12:45 | disposition home or self-care (01) ==
LOC: UCEAST 10:40
DX: S50.02XA Contusion of left elbow, initial encounter (principal); S80.02XA Contusion of left knee, initial encounter; S80.01XA Contusion of right knee, initial encounter; S50.312A Abrasion of left elbow, initial encounter; S80.212A Abrasion, left knee, initial encounter; W01.0XXA Fall on same level from slipping, tripping and stumbling without subsequent striking against object, initial encounter; Y93.H3 Activity, building and construction; Y92.9 Unspecified place or not applicable; Y99.0 Civilian activity done for income or pay; E11.9 Type 2 diabetes mellitus without complications; I10 Essential (primary) hypertension; J45.909 Unspecified asthma, uncomplicated; Z88.5 Allergy status to narcotic agent; Z88.0 Allergy status to penicillin; Z88.2 Allergy status to sulfonamides; Z88.6 Allergy status to analgesic agent; Z88.1 Allergy status to other antibiotic agents; Z91.040 Latex allergy status; Z87.891 Personal history of nicotine dependence
CPT/HCPCS: 99213; G0463

== ENCOUNTER 2017-06-04 17:12 | Emergency (ER) | payer SELFPAY ==
--- NOTE | 2017-06-04 18:36 | UC ---
Ear Complaint HPI - HPI Summary HPI Summary: 56 yo WF c/o left ear "popping" x 4 times today but also c/o left tragus pain, denies f/c - History of Current Complaint Chief Complaint: UCEar Stated Complaint: EARS POPPED 4 TIMES Time Seen by Provider: 06/04/17 17:47 Hx Obtained From: Patient Hx Last Menstrual Period: post Onset/Duration: Sudden Onset Severity Currently: Mild Pain Intensity: 6 - Allergies/Home Medications Allergies/Adverse Reactions: Allergies Allergy/AdvReac Type Severity Reaction Status Date / Time latex Allergy Severe Rash Verified 06/04/17 18:11 MS Morphine and Related Allergy Severe Unknown Verified 04/14/17 17:07 [Morphine and Related] Reaction Details Sulfa (Sulfonamide Allergy Severe UNK Verified 06/04/17 18:11 Antibiotics) tramadol Allergy Severe Difficulty Verified 06/04/17 18:11 Breathing acetaminophen Allergy UNK Verified 06/04/17 18:11 clarithromycin Allergy UNK Verified 06/04/17 18:11 Penicillins Allergy UNK Verified 06/04/17 18:11 MS Hydrocodone [From Vicodin] AdvReac Severe Vomiting Verified 04/14/17 17:07 cillins Allergy Severe Unknown Uncoded 04/14/17 17:07 Reaction Details emycins Allergy Severe Unknown Uncoded 04/14/17 17:07 Reaction Details NUTS Allergy Severe Rash Uncoded 04/14/17 17:07 TAPE: SILK OR ADHESIVE Allergy Severe Rash Uncoded 04/14/17 17:07 PMH/Surg Hx/FS Hx/Imm Hx Previously Healthy: Yes Other History Of: Negative For: HIV, Hepatitis B, Hepatitis C, Anticoagulant Therapy - Surgical History Surgical History: Yes Surgery Procedure, Year, and Place: tonsils; breast reduction; tubal ligation; Gall Bladder, R wrist. LEFT Shoulder. Surgery under her Chin, Cant recall for what. right arm surgery 2013. pins removed from elbow 2014 - Family History Known Family History: Positive: Cardiac Disease, Hypertension, Diabetes, Other - Asthma - Social History Alcohol Use: None Alcohol Amount: MAYBE A FEW A YEAR Substance Use Type: None Smoking Status (MU): Never Smoked Tobacco Have You Smoked in the Last Year: No When Did the Patient Quit Smoking/Using Tobacco: 2010 Household Exposure Type: Cigarettes - Immunization History Most Recent Influenza Vaccination: 12/09 Most Recent Tetanus Shot: unsure Hx Tetanus, Diphtheria Vaccination: Yes Vaccination Up to Date: Yes Review of Systems Constitutional: Negative Skin: Negative Eyes: Negative ENT: Ear Ache - left tragus ear pain and ear popping Respiratory: Negative Cardiovascular: Negative Gastrointestinal: Negative Genitourinary: Negative Motor: Negative Neurovascular: Negative Musculoskeletal: Negative Neurological: Negative Psychological: Negative All Other Systems Reviewed And Are Negative: Yes Physical Exam Triage Information Reviewed: Yes Appearance: Well-Appearing Vital Signs: Initial Vital Signs Temp 35.5 C 06/04/17 17:33 Pulse 84 06/04/17 17:33 Resp 15 06/04/17 17:33 BP 130/70 06/04/17 17:33 Pulse Ox 97 06/04/17 17:33 Eye Exam: Normal ENT: Positive: TMs normal, Other - left tragus tenderness, NO posterior auricular LN tenderness Dental Exam: Normal Neck exam: Normal Neck: Positive: 1 Respiratory Exam: Normal Cardiovascular Exam: Normal Abdominal Exam: Normal Musculoskeletal Exam: Normal Neurological Exam: Normal Psychological Exam: Normal Skin Exam: Normal Ear Complaint Course/Dx - Differential Dx/Diagnosis Provider Diagnoses: left otitis externa Discharge - Discharge Plan Condition: Stable Disposition: HOME Prescriptions: Ciproflox/Dexameth OTIC.SUSP* [Ciprodex OTIC.SUSP*] 4 drop .SEE ORDER BID #1 btl Patient Education Materials: Otitis Externa (ED) Referrals: Sapna Sinha MD [Primary Care Provider] -
[2017-06-04 19:58] VITALS: BP 128/78
== END 2017-06-04 19:50 | disposition home or self-care (01) ==
LOC: UCEAST 17:12
DX: H60.92 Unspecified otitis externa, left ear (principal); Z88.1 Allergy status to other antibiotic agents; Z91.040 Latex allergy status; Z88.5 Allergy status to narcotic agent; Z91.018 Allergy to other foods; Z88.0 Allergy status to penicillin; Z88.2 Allergy status to sulfonamides; Z91.048 Other nonmedicinal substance allergy status; Z87.891 Personal history of nicotine dependence
CPT/HCPCS: 99212; G0463

== ENCOUNTER 2017-06-04 17:18 | Emergency (ER) | payer OTHER ==
--- NOTE | 2017-06-04 18:25 | UC ---
General HPI - HPI Summary HPI Summary: 56 yo WF p/w Knee pains started after falling onto her knees while cleaning at work last week and hurts to walk. - History of Current Complaint Chief Complaint: UCLowerExtremity Stated Complaint: 2 KNEE CAPS WC INJURIES Time Seen by Provider: 06/04/17 17:48 Hx Obtained From: Patient Hx Last Menstrual Period: post Onset/Duration: Lasting Days Current Severity: Moderate Pain Intensity: 6 - Allergy/Home Medications Allergies/Adverse Reactions: Allergies Allergy/AdvReac Type Severity Reaction Status Date / Time latex Allergy Severe Rash Verified 06/04/17 18:11 MS Morphine and Related Allergy Severe Unknown Verified 04/14/17 17:07 [Morphine and Related] Reaction Details Sulfa (Sulfonamide Allergy Severe UNK Verified 06/04/17 18:11 Antibiotics) tramadol Allergy Severe Difficulty Verified 06/04/17 18:11 Breathing acetaminophen Allergy UNK Verified 06/04/17 18:11 clarithromycin Allergy UNK Verified 06/04/17 18:11 Penicillins Allergy UNK Verified 06/04/17 18:11 MS Hydrocodone [From Vicodin] AdvReac Severe Vomiting Verified 04/14/17 17:07 cillins Allergy Severe Unknown Uncoded 04/14/17 17:07 Reaction Details emycins Allergy Severe Unknown Uncoded 04/14/17 17:07 Reaction Details NUTS Allergy Severe Rash Uncoded 04/14/17 17:07 TAPE: SILK OR ADHESIVE Allergy Severe Rash Uncoded 04/14/17 17:07 PMH/Surg Hx/FS Hx/Imm Hx Previously Healthy: Yes Other History Of: Negative For: HIV, Hepatitis B, Hepatitis C, Anticoagulant Therapy - Surgical History Surgical History: Yes Surgery Procedure, Year, and Place: tonsils; breast reduction; tubal ligation; Gall Bladder, R wrist. LEFT Shoulder. Surgery under her Chin, Cant recall for what. right arm surgery 2013. pins removed from elbow 2014 - Family History Known Family History: Positive: Cardiac Disease, Hypertension, Diabetes, Other - Asthma - Social History Alcohol Use: None Alcohol Amount: MAYBE A FEW A YEAR Substance Use Type: None Smoking Status (MU): Never Smoked Tobacco Have You Smoked in the Last Year: No When Did the Patient Quit Smoking/Using Tobacco: 2010 Household Exposure Type: Cigarettes - Immunization History Most Recent Influenza Vaccination: 12/09 Most Recent Tetanus Shot: unsure Hx Tetanus, Diphtheria Vaccination: Yes Vaccination Up to Date: Yes Review of Systems Constitutional: Negative Skin: Negative Eyes: Negative ENT: Negative Respiratory: Negative Cardiovascular: Negative Gastrointestinal: Negative Genitourinary: Negative Motor: Negative Neurovascular: Negative Musculoskeletal: Other: - B/L knee pain Neurological: Negative Psychological: Negative All Other Systems Reviewed And Are Negative: Yes Physical Exam Triage Information Reviewed: Yes Appearance: No Pain Distress, Obese Vital Signs: Initial Vital Signs Temp 35.5 C 06/04/17 17:37 Pulse 84 06/04/17 17:37 Resp 15 06/04/17 17:37 BP 130/70 06/04/17 17:37 Pulse Ox 97 06/04/17 17:37 Eye Exam: Normal ENT Exam: Other - [facility] Dental Exam: Normal Neck exam: Normal Neck: Positive: 1 Respiratory Exam: Normal Cardiovascular Exam: Normal Abdominal Exam: Normal Musculoskeletal Exam: Normal Musculoskeletal: Positive: Strength Limited @ - B/L knee pain, ROM Limited @, Other: - TTP over B/L joint lines Neurological Exam: Normal Psychological Exam: Normal Skin Exam: Normal Course/Dx - Course Course Of Treatment: XR of B/L knees- joint space narrowing in B/L medial femoral condyles and tibial plateau c/w OA - Differential Dx - Multi-Symptom Provider Diagnoses: B/L Osteoarthritis Discharge - Discharge Plan Condition: Stable Disposition: HOME Referrals: Sapna Sinha MD [Primary Care Provider] -
--- NOTE | 2017-06-04 18:36 | RAD ---
HISTORY: Bilateral patellar pain status post work injury COMPARISONS: September 11, 2015 VIEWS: 8, Frontal, lateral, axial, and oblique views of the left knee and of the right knee FINDINGS: Right: BONE DENSITY: Normal. BONES: There is no displaced fracture. JOINTS: There is mild to moderate tricompartmental osteoarthritis. There is no suprapatellar joint effusion or lipohemarthrosis. ALIGNMENT: There is no dislocation. The alignment is anatomic. SOFT TISSUES: Unremarkable. Left: BONE DENSITY: Normal. BONES: There is no displaced fracture. JOINTS: There is mild to moderate tricompartmental osteoarthritis. There is no suprapatellar joint effusion or lipohemarthrosis. ALIGNMENT: There is no dislocation. The alignment is anatomic. SOFT TISSUES: Unremarkable. OTHER FINDINGS: None. IMPRESSION: BILATERAL OSTEOARTHRITIS. NO ACUTE OSSEOUS INJURY. IF SYMPTOMS PERSIST, RECOMMEND REPEAT IMAGING.
[2017-06-04 19:56] VITALS: BP 128/78
== END 2017-06-04 19:57 | disposition home or self-care (01) ==
LOC: UCEAST 17:18
DX: M17.0 Bilateral primary osteoarthritis of knee (principal); S89.92XA Unspecified injury of left lower leg, initial encounter; S89.91XA Unspecified injury of right lower leg, initial encounter; W19.XXXA Unspecified fall, initial encounter; Y93.H3 Activity, building and construction; Y92.9 Unspecified place or not applicable; Y99.0 Civilian activity done for income or pay; Z88.1 Allergy status to other antibiotic agents; Z91.040 Latex allergy status; Z88.5 Allergy status to narcotic agent; Z88.0 Allergy status to penicillin; Z88.2 Allergy status to sulfonamides; Z91.048 Other nonmedicinal substance allergy status; Z87.891 Personal history of nicotine dependence
CPT/HCPCS: 99211; G0463

== ENCOUNTER 2017-07-25 15:31 | Emergency (ER) | payer MEDICAID, OTHER ==
--- NOTE | 2017-07-25 18:06 | UC ---
UC General HPI - HPI Summary HPI Summary: 57 y/o female with c/o vaginal dryness x 24 hours and shortness of breath, cough , feeling fatigued x 3 week PMH + DM, meds= insulin. Patient not sexually active, denies vaginal discharge, bleeding, odor, itching. Cough- sometimes productive with full feeling in L lungs. No chest pain, jaw pain, radiation. + h/o seasonal allergies, worse in spring,taking OTC antihistamines, no benefit. no fever, chills. no GI symptoms. 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 Hx Last Menstrual Period: post Onset/Duration: Sudden Onset, Lasting Days Pain Intensity: 0 - Allergy/Home Medications Allergies/Adverse Reactions: Allergies Allergy/AdvReac Type Severity Reaction Status Date / Time latex Allergy Severe Rash Verified 06/04/17 18:11 MS Morphine and Related Allergy Severe Unknown Verified 04/14/17 17:07 [Morphine and Related] Reaction Details Sulfa (Sulfonamide Allergy Severe UNK Verified 06/04/17 18:11 Antibiotics) tramadol Allergy Severe Difficulty Verified 06/04/17 18:11 Breathing acetaminophen Allergy UNK Verified 06/04/17 18:11 azithromycin Allergy Unknown Verified 07/25/17 18:57 Reaction Details clarithromycin Allergy UNK Verified 06/04/17 18:11 Penicillins Allergy UNK Verified 06/04/17 18:11 MS Hydrocodone [From Vicodin] AdvReac Severe Vomiting Verified 04/14/17 17:07 NUTS Allergy Severe Rash Uncoded 04/14/17 17:07 TAPE: SILK OR ADHESIVE Allergy Severe Rash Uncoded 04/14/17 17:07 PMH/Surg Hx/FS Hx/Imm Hx Previously Healthy: No - dm Other History Of: Negative For: HIV, Hepatitis B, Hepatitis C, Anticoagulant Therapy - Surgical History Surgical History: Yes Surgery Procedure, Year, and Place: tonsils; breast reduction; tubal ligation; Gall Bladder, R wrist. LEFT Shoulder. Surgery under her Chin, Cant recall for what. right arm surgery 2013. pins removed from elbow 2014 - Family History Known Family History: Positive: Cardiac Disease, Hypertension, Diabetes, Other - Asthma - Social History Alcohol Use: None Alcohol Amount: MAYBE A FEW A YEAR Substance Use Type: None Smoking Status (MU): Never Smoked Tobacco Have You Smoked in the Last Year: No When Did the Patient Quit Smoking/Using Tobacco: 2010 Household Exposure Type: Cigarettes - Immunization History Most Recent Influenza Vaccination: 12/09 Most Recent Tetanus Shot: unsure Hx Tetanus, Diphtheria Vaccination: Yes Vaccination Up to Date: Yes Review of Systems Constitutional: Fatigue ENT: Ear Ache, Nasal Discharge Respiratory: Shortness Of Breath, Cough Genitourinary: Vaginal/Penile Tenderness Is Patient Immunocompromised?: No All Other Systems Reviewed And Are Negative: Yes Physical Exam Triage Information Reviewed: Yes Appearance: Well-Appearing, No Pain Distress, Well-Nourished Vital Signs: Initial Vital Signs Temp 98.1 F 07/25/17 17:22 Pulse 65 07/25/17 17:22 Resp 20 07/25/17 17:22 BP 0/0 07/25/17 17:22 Pulse Ox 100 07/25/17 17:22 Vital Signs Reviewed: Yes ENT: Positive: Pharyngeal erythema - minimal no exudates, TM bulging, TM red - L side only, Sinus tenderness - l sided Neck: Positive: Supple, Nontender, No Lymphadenopathy Respiratory: Positive: Chest non-tender, Lungs clear, Normal breath sounds, No respiratory distress, No accessory muscle use Cardiovascular: Positive: RRR, No Murmur, Pulses Normal Abdomen Description: Negative: CVA Tenderness (R), CVA Tenderness (L) Pelvic Exam: Positive: Other - normal external genitalia, small fissure 12 on vagianl opening, skin slightly macerated near vagainl opening, watery, yellow discharge, mild odor, groin skin folds shiny, slightly macerated with satelite lesions noted b/l. Negative: Speculum Exam Normal - patient refused speculum exam and cultures, Active Bleeding Neurological Exam: Normal Course/Dx - Course Course Of Treatment: patient refused cultures, probably BV, medtronidazole gel given, Zpac for sinusitis, qvar for lung/ SOB related likely to allergies f/u with PCP - Differential Dx - Multi-Symptom Provider Diagnoses: sinusitis, BV Discharge - Sign-Out/Discharge Documenting (check all that apply): Discharge/Admit/Transfer - Discharge Plan Condition: Good Disposition: HOME Prescriptions: Beclomethasone 80 MCG MDI(NF) [Qvar 80 MCG MDI(NF)] 1 puff INH DAILY #1 mdi Levofloxacin TAB* [Levaquin TAB*] 750 mg PO DAILY #7 tab metroNIDAZOLE [Metronidazole 0.75 % gel] 37.5 mg TOPICAL DAILY 5 Days #5 dose Nystatin TOP POWDER* 1 applic TOPICAL BID #1 btl Patient Education Materials: Bacterial Vaginosis (ED), Sinusitis (ED), Skin Yeast Infection (ED) Referrals: Sapna Sinha MD [Primary Care Provider] - Additional Instructions: - Yeast infection in skin folds - Nystatin powder daily to groin creases - Bacterial Vaginosis- Metronidazole gel vaginally- 0.75% (Vandazole): One applicatorful (~37.5 mg metronidazole) intravaginally once daily for 5 days - Sinus infection- azithromycin as directed - Increase fluid intake - Follow up with primary if no relief in symptoms in 2-3 days - Qvar inhaler for shortness of breath - Billing Disposition and Condition Condition: GOOD Disposition: HOME
[2017-07-25 18:09] VITALS: BP 138/96
== END 2017-07-25 18:25 | disposition home or self-care (01) ==
LOC: UCEAST 15:31
DX: J32.9 Chronic sinusitis, unspecified (principal); N76.0 Acute vaginitis; E11.9 Type 2 diabetes mellitus without complications; Z79.4 Long term (current) use of insulin; Z88.6 Allergy status to analgesic agent; Z88.1 Allergy status to other antibiotic agents; Z91.040 Latex allergy status; Z88.5 Allergy status to narcotic agent; Z88.2 Allergy status to sulfonamides; Z91.048 Other nonmedicinal substance allergy status
CPT/HCPCS: 99212; G0463

== ENCOUNTER 2017-11-11 14:10 | Emergency (ER) | payer MEDICARE, MEDICAID ==
--- OUTSIDE RECORDS SUMMARY | 2017-11-11 14:15 | XMS REPORT ---
:1960 External Reference #:[id number] Author Organization [facility] Address [address] [place] [address] [place] [address] Phone [phone] Care Team Providers Name Role Phone Sapna Sinha MD Primary Care Physician Unavailable Payers Type Date Identification Numbers Payment Provider Subscriber Medicare Primary Effective: Policy Number: Medicare Ruba Flores 1987 [id number] PayID: [id number] [address] [place] [address] Medireading Part B Effective: 2007 Policy Number: [id number] Medicaid Ruba Flores Group Name: 1 1 [address] PayID: [id number] [place] [address] Problems Date Description Provider Status Onset: 08/07/2015 Localized, primary osteoarthritis Vashti Srinivasan M.D. Active Family History Date Family Member(s) Problem(s) Comments General Diabetes General Hypertension General Heart Disease Social History Type Date Description Comments Marital Status Single Lives With Alone Occupation Unemployed ETOH Use Denies alcohol use Smoking Patient has never smoked Exercise Type/Frequency Does not exercise Allergies, Adverse Reactions, Alerts Date Description Reaction Status Severity Comments 06/13/2013 Penicillins active 06/13/2013 Sulfa Antibiotics active 06/13/2013 Biaxin active 06/13/2013 Latex active 06/13/2013 Tape active 11/21/2013 Tramadol active Medications Medication Date Status Form Strength Qnty SIG Indications Ordering Provider Aspirin 81 00/ Active 1 tab daily Unknown /0000 Pulmicort 00 Active Suspension 0.5mg/2ML 30uni one reespule Unknown /0000 ts per day to add to soultion Dovonex Active Cream 0.005% 120gr apply to Unknown /0000 ams affected areas twice a day and rub in completely Cardizem CD Active Caps ER 300mg 1 tablet qd. 24HR Benadryl Active Capsules 25mg 30cap 1 by mouth Unknown /0000 s at at bedtime Colace Active Capsules 100mg 60cap 1 by mouth Unknown /0000 s twice a day Epinephrine Active Device 0.3mg/0.3 Unknown /0000 ML Nexium Active Capsules DR 40mg 30cap 1 by mouth Unknown /0000 s every day Flonase Active Suspension 50mcg/Act 1unit 1 intranasal Unknown / s puff to each nostril daily Albuterol Active Nebulizer (2.5mg/3M 1 vial via Unknown Sulfate /0000 L) 0.083% nebulizer 4 times daily as needed Albuterol Active Powder 1-2 puffs Unknown every 4 hours as needed sob Atorvastatin Active Tablets 40mg 1 by mouth Unknown Calcium / every day Keflex Active Capsules 500mg take 1 tab Unknown /0000 by mouth four times a day Zyrtec Allergy Active Tablets 10mg 1 by mouth Unknown /0000 every day Clobetasol Active Ointment 0.05% as directed Unknown Propionate 0000 Trulicity Active Solution 1.5mg/0.5 inject Unknown /0000 Pen-Inject ML subcutaneous ly weekly Jardiance Active Tablets 10mg 1 by mouth Unknown /0000 every night Vagifem Active Tablets 10mcg insert 1 Unknown /0000 tablet vaginally twice a week Premarin Active Cream 0.625mg/G insert 1 Unknown /[address] applicatorfu l by way of vagina three times a week for 2 weeks, then 1 to 2 times a week Fluocinonide Active Ointment 0.05% apply Unknown / topically twice daily as needed Benefiber Active Tablets Unknown /0000 Advair Diskus Active Aerosol 100-50mcg inhale one Unknown /0000 /Dose puff by mouth twice a day Robitussin Active Liquid 100mg/5ML 10 Unknown Mucus+Chest /0000 milliliters Congestion by mouth every 4 hours as needed Zaditor Active Solution 0.025% Unknown Loratadine Active Tablets 10mg 1 by mouth Unknown / every day Losartan Active Tablets 50mg 1 by mouth Unknown Potassium / every day Metformin HCL Active Tablets 500mg 1 by mouth Unknown / twice a day Montelukast Active Tablets 10mg 1 by mouth Unknown Sodium / every day Nateglinide Active Tablets 120mg Unknown / Pioglitazone Active Tablets 30mg 1 by mouth Unknown HCL every day Nystatin Active Powder [id number] topical Unknown t/GM twice a day as needed Miralax Active Packet 3350NF 17 gram with Unknown h20 once a day Rizatriptan Active Tablets 10mg 1 by mouth Unknown Benzoate twice a day as needed headache max 2 days a week Januvia Active Tablets 100mg 1 by mouth Unknown / every day Tab-A-Vashti/Iro Active Tablets 1 by mouth Unknown n /0000 every day Triamcinolone Active Cream 0.5% apply twice Unknown Acetonide daily to the affected area Naproxen 07/23 Hx Tablets 500mg 60tab 1 tablet by S83.411A s mouth with Bordoni, food twice [facility] [employer] daily. Vaughn 09/11 Hx Tablets 5-325mg 30tab 1-2 by mouth 733.82 s q4-6 hour as Dickson, needed pain M.D. Meloxicam 04/03 Hx Tablets 7.5mg 60tab 1 by mouth s twice a day Dickson, as needed M.D. pain Acetaminophen/ 03/11 Hx Tablets 300-30mg 30tab 1-2 po q 4-6 Codeine s hr prn pain Dickson, Phosphate M.D. Vaughn 10/28 Hx Tablets 5-325mg 42tab 1-2 tabs by s mouth tid as Dickson, - needed pain M.D. 10/28 Vaughn 10/28 Hx Tablets 5-325mg 30tab 1-2 tabs by s mouth three Dickson, - times a day M.D. 09/11 as needed /2014 pain Ultram 06/20 Hx Tablets 50mg 30tab 1 by mouth s q6 hour as Dickson, needed pain M.D. Acetaminophen/ Hx Unknown Codeine #3 /0000 - 03/11 Ventolin HFA Hx Unknown /0000 Mylanta Hx Unknown /0000 Caltrate 600+D Hx Tablets 600-400mg 1 by mouth Unknown /0000 -Unit every day Temovate E Hx Unknown /0000 Proctosol HC Hx Cream 2.5% 60gm apply twice Unknown /0000 a day as needed Alavert Hx Tablets 10mg Unknown /0000 Cozaar Hx Tablets 50mg 30tab 1 by mouth Unknown /0000 s every day Singulair Hx Tablets 10mg 30tab 1 by mouth Unknown /0000 s every day Multi-Vitamins Hx Tablets 100ta 1 by mouth Unknown /Iron /0000 bs every day Nystatin Hx Powder [id number] 60gm apply to Unknown /0000 t/GM affected areas twice daily Nystatin/Triam Hx Ointment 595778-3. 60gm apply Unknown cinolone /0000 1Unit/GM- sparingly 2 % times daily x maximum 25 days, then as needed Lovaza Hx Capsules 1gm 180ca 1 by mouth Unknown /0000 ps twice a day Miralax Hx Packet 3350NF 1Mon 17 gm every Unknown /0000 day as needed Januvia Hx Tablets 50mg 90tab 1 by mouth Unknown /0000 s every day Percocet Hx Unknown /0000 Vital Signs Date Vital Result Comment 11/08/2017 Height 65 inches 5'5" Weight 220.00 lb Heart Rate 72 /min BP Systolic 122 mmHg BP Diastolic 80 mmHg Respiratory Rate 18 /min Body Temperature 97.1 F BMI (Body Mass Index) 36.6 kg/m2 08/21/2015 Height 65 inches 5'5" Weight 232.00 lb Pain Level 7 BMI (Body Mass Index) 38.6 kg/m2 08/07/2015 Height 65 inches 5'5" Weight 232.00 lb Heart Rate 97 /min BP Systolic 179 mmHg BP Diastolic 113 mmHg BMI (Body Mass Index) 38.6 kg/m2 07/24/2015 Height 65 inches 5'5" Weight 232.00 lb Pain Level 8 BMI (Body Mass Index) 38.6 kg/m2 10/13/2014 Height 65 inches 5'5" Weight 231.00 lb Pain Level 6 BMI (Body Mass Index) 38.4 kg/m2 09/11/2014 Height 65 inches 5'5" Weight 231.00 lb Pain Level 8 right elbow/wrist varies BMI (Body Mass Index) 38.4 kg/m2 04/03/2014 Height 65 inches 5'5" Heart Rate 94 /min BP Systolic 147 mmHg BP Diastolic 103 mmHg 02/06/2014 Height 65 inches 5'5" Weight 215.00 lb Heart Rate 84 /min BMI (Body Mass Index) 35.8 kg/m2 12/19/2013 Height 65 inches 5'5" Heart Rate 81 /min BP Systolic 159 mmHg BP Diastolic 102 mmHg 11/21/2013 Height 65 inches 5'5" Weight 215.00 lb Heart Rate 72 /min BMI (Body Mass Index) 35.8 kg/m2 10/24/2013 Height 65 inches 5'5" Weight 215.00 lb Body Temperature 97.8 F BMI (Body Mass Index) 35.8 kg/m2 10/03/2013 Height 65 inches 5'5" Weight 215.00 lb Heart Rate 65 /min BMI (Body Mass Index) 35.8 kg/m2 09/05/2013 Height 65 inches 5'5" Heart Rate 77 /min BP Systolic 154 mmHg BP Diastolic 104 mmHg 08/15/2013 Height 65 inches 5'5" Weight 225.00 lb Heart Rate 76 /min BMI (Body Mass Index) 37.4 kg/m2 06/13/2013 Height 65 inches 5'5" Weight 225.00 lb Heart Rate 68 /min BP Systolic 136 mmHg BP Diastolic 87 mmHg BMI (Body Mass Index) 37.4 kg/m2 Results Test Date Test Result H/L Range Note Laboratory test 01/03/2015 Gardnerella/Yeast: SEE RESULT BELOW 1 finding Vaginal Dna Culture Genital & Sensitivity SEE RESULT BELOW 2 Laboratory test 01/03/2015 Urine Culture And SEE RESULT BELOW 3 finding Sensitivities Laboratory test 10/03/2014 Surgical Pathology SEE RESULT BELOW 4 finding Laboratory test 10/03/2014 Point of Care 174 mg/dL High 74-106 5 finding Glucose Laboratory test 10/03/2014 Point of Care 195 mg/dL High 74-106 6 finding Glucose Laboratory test 08/16/2014 Urine Culture SEE RESULT BELOW 7 finding Laboratory test 12/10/2013 HIV 1 2 AB Self Nonreactive Nonreactive 8 finding Referred Hepatitis C Ab - Self Ref Nonreactive Nonreactive 1 SEE RESULT BELOW Name: RUBA FLORES Emelina : [address]: Tashia Knox Acct: [id number] Unit: [id number] AGE: 54 Location: [facility] Re01/03/15 SEX: F Status: DEP ER SPEC: [id number] DONTAE: 01/03/15-[address] [facility] [address]: Greg FANG REQ: [id number] RECD: 01/04/15 STATUS: COMP KATHI DR: Naz Dickson MD _ SOURCE: VAGINAL SPDESC: ORDERED: Tamiko,Yeast DNA, Trich DNA Procedure Result Verified Site Gardnerella/Yeast: Vaginal DNA Final 01/05/15- 1034 ML Organism 1 Negative Gardnerella Organism 2 Negative Cate The presence of G. vaginalis, although suggestive, is not diagnostic for bacterial vaginosis. Results should be interpreted in conjuction with other clinical and laboratory data available. Women with vaginal discharge should be evaluated for risk factors of cervicitis and pelvic inflammatory disease, toxic shock syndrome (S.aureus), and if present, evaluated for organisms not included in this assay such as N. gonorrhoeae, C. trachomatis, Mobiluncus, Mycoplasma and/or Prevotella. Mixed infections may occur. The performance of this test on patient specimens collected during or immediately after antimicrobial therapy is unknown. The presence or absence of Cate species, or G. vaginalis cannot be used as a test for therapeutic success or failure. Trichomonas: Vaginal DNA Probe Final 01/05/15- 1034 ML Organism 1 Negative Trichomonas CONTINUED ON NEXT PAGE * ML=Testing performed at [facility] DEPARTMENT OF PATHOLOGY, [address] [place] [address] Jose De Jesus Cole M.D. Director [facility] # [id number] Patient: RUBA FLORES [id number] (Continued) Specimen: [id number] Collected: 01/03/15 Received: 01/04/15 (Continued) Procedure Result Verified Site Trichomonas: Vaginal DNA Probe Final (continued) 01/05/151033 The presence or absence of T. vaginalis cannot be used as a test for therapeutic success or failure. * ML - MAIN LAB ([facility]) . END OF REPORT * ML=Testing performed at Main Lab DEPARTMENT OF PATHOLOGY, [address] [place] [address] Jose De Jesus Cole M.D. Director [facility] # [id number] 2 SEE RESULT BELOW Name: RUBA FLORES : [address]: Tashia Knox Acct: [id number] Unit: [id number] AGE: 54 Location: [facility] Re01/03/15 SEX: F Status: DEP ER SPEC: [id number] DONTAE: 01/03/15-[address] [facility] [address]: Greg FANG REQ: [id number] RECD: 01/04/15 STATUS: DIANE ARMENTA DR: Naz Dickson MD _ SOURCE: VAGINAL SPDESC: ORDERED: Genital Culture COMMENTS: Found setup at 20:44 on Jan 03 - [id number]. Procedure Result Verified Site Genital Culture Final 01/06/15- 0853 ML Organism 1 NORMAL KYLE Quantity 3+ Routine genital cultures do not include selective agar for Neisseria gonorrhoeae. Molecular testing offers better test sensitivity and therefore is the preferred test methodology for identifying this organism. * ML - MAIN LAB ([facility]) . END OF REPORT * ML=Testing performed at Main Lab DEPARTMENT OF PATHOLOGY, [address] [place] [address] Jose De Jesus Cole M.D. Director [facility] # [id number] 3 SEE RESULT BELOW Name: RUBA FLORES : [address]: Tashia Knox Acct: [id number] Unit: [id number] AGE: 54 Location: [facility] Re01/03/15 SEX: F Status: DEP ER SPEC: [id number] DNOTAE: 01/03/[address] [facility] [address]: Naz Hernández DO REQ: [id number] RECD: 01/04/15 STATUS: DIANE ARMENTA DR: [facility] Sapna Dickson MD _ SOURCE: URINE SPDESC: ORDERED: Urine Culture Procedure Result Verified Site Urine Culture Final 01/06/15912 ML Organism 1 NORMAL KYLE Garrison Count 1-10,000 (Few) CFU/ML * ML - MAIN LAB ([facility]) . END OF REPORT * ML=Testing performed at Main Lab DEPARTMENT OF PATHOLOGY, [address] [place] [address] Jose De Jesus Cole M.D. Director [facility] # [id number] 4 SEE RESULT BELOW Name: RUBA FLORES : [address]: Kelsey Dickson MD Acct: [id number] Unit: [id number] AGE: 54 Location: [facility] Re10/03/14 SEX: F Status: REG [facility] [place] SPEC: [id number] DONTAE: 10/03/14- SUBM DR: Kelsey Dickson MD REQ: [id number] RECD: 10/03/14-1148 STATUS: SOUT _ ORDERED: LEVEL I, LEVEL III FINAL DIAGNOSIS 1. Right elbow, excision: --Synovial tissue with chronic inflammation marked fibrosis and neovascularization. . 2. Right elbow, hardware removal: Foreign body (orthopedic hardware) (Gross diagnosis). PRE-OPERATIVE DIAGNOSIS Painful hardware right elbow. GROSS DESCRIPTION 1. The specimen is received in formalin labeled, Olecranon Bursa Right Elbow, consists of two gomes-pink rubbery irregular soft tissue fragments aggregating 3.2 x 2.7 x 0.7 cm. Wiener Packer sections, one cassette. 2. The specimen is received fresh labeled, Hardware Right Elbow (Four Wires ), and consists of four silver metallic wires, two of which are J-shaped pins averaging 0.5 x 0.2 cm. The remaining wires are coiled and distorted. Per established hospital medical staff protocol, no tissue is submitted. Gross only. Signed (signature on file) Jose De Jesus Cole MD 1407 END OF REPORT * ML=Testing performed at Main Lab DEPARTMENT OF PATHOLOGY, [address] [place] [address] Jose De Jesus Cole M.D. Director [facility] # [id number] 5 Venipuncturist: [id number] CAROLE COURTNEY 6 Venipuncturist: [id number] ИРИНА PITTS 7 SEE RESULT BELOW Name: RUBA FLORES : [address]: Claudia Meeks MD Acct: [id number] Unit: [id number] AGE: 54 Location: [facility] Re08/16/14 SEX: F Status: DEP ER SPEC: [id number] DONTAE: 08/16/14-[address] [facility] [address]: Claudia Meeks MD REQ: [id number] RECD: 08/17/14-1252 STATUS: [facility] DR: Sapna Dickson MD _ SOURCE: URINE [facility]: ORDERED: Urine Culture Procedure Result Verified Site Urine Culture Final 08/19/14- 08 ML Organism 1 NORMAL KYLE Garrison Count 75-100,000 (Many) CFU/ML * ML - MAIN LAB ([facility]) . END OF REPORT * ML=Testing performed at Main Lab DEPARTMENT OF PATHOLOGY, [address] [place] [address] Jose De Jesus Cole M.D. Director [facility] # [id number] 8 It is recognized that currently available assays for the detection of antibodies to HIV-1 and/or HIV-2 may not detect all infected individuals. HIV antibodies may be undetectable in some stages of the infection and in some clinical conditions. The performance of this assay has not been established for populations of infants or children. Assayed by Chemiluminescence Microparticle Immunoassay on the Siemens Advia Centaur CP. Values obtained with different methods or kits cannot be used interchangeably.The diagnostic specificity of the ADVIA Centaur 1/O/2 Enhanced assay in the low risk population was 99.90% (6052/6058) with a 95% confidence interval of 99.78 to 99.96%. Procedures Date CPT Code Description Status 10/03/201494285 Removal Implant Deep Wire,Screw Nail,Francis Or Plate Completed 02/06/2014 54530 Rad Exam; Wrist, Comp, Min 3 Views Completed 10/24/2013 24309 Rad Exam; Elbow, Limited Completed 10/24/2013 19320 Rad Exam; Elbow, Limited Completed 10/11/2013 37687 FX Ulna Proximal (Olecranon) Open TX W/Wo Fixation Completed 08/15/2013 10396 Rad Exam; Elbow, Limited Completed 06/20/2013 71629 Rad Exam; Elbow, Limited Completed 06/13/2013 31515 Closed Treatment Ulnar Shaft Fracture Completed 06/13/2013 51419 FX Ulna Proximal (Olecranon) Closed Treatment W/O Completed Manipulation 07/12/2009 23136 ECHO Transthorasic Realtime 2D W Doppler & Color Flow Completed Hosp 08/14/2008 02511 EKG, Interpretation Only Completed Encounters Type Date Location Provider CPT E/M Dx Office Visit 08/21/2015 [facility] Vashti Srinivasan M.D. 39271 M25.562 3:00p Of Mickey M17.12 Office Visit 08/07/2015 10:00a [facility] Of Vashti Srinivasan M.D. 25762 M25.562 Mickey M17.12 S83.411A M25.462 Office Visit 07/24/2015 10:00a [facility] Of Vashti Srinivasan M.D. 68114 M25.562 Mercedez.Kavita M17.12 S83.411A Office Visit 09/11/2014 9:15a [facility] Kelsey Dickson 70317 733.82 Of Mickey Howe 813.01 715.14 996.78 Office Visit 04/03/2014 2:00p [facility] Kelsey Dickson 25752 715.14 Of Mickey Howe 354.0 Office Visit 02/06/2014 3:15p [facility] Kelsey Dickson, 08766 715.14 Of Mickey Howe 354.0 Office Visit 10/03/2013 11:30a [facility] Kelsey Dickson, 38038 813.01 Of Mickey Howe 733.82 Office Visit 07/14/2009 1:30a [facility], [place], [address] 789.00 Hospitalists M.DTamiko 564.1 250.00 401.9 Office Visit 07/13/2009 1:45a [facility], [place], [address] 789.00 Hospitalists M.DTamiko 250.00 401.9 Office Visit 07/12/2009 2:15a [facility], [place], [address] 786.59 Hospitalists MRhianna 787.01 250.00 Office Visit 07/11/2009 12:45a [facility] Dona Hagen, [address] 786.50 Ass, Hospitalists M.DTamiko 493.90 530.81 278.00 Office Visit 10/20/2008 9:15a [facility] Diaz Garcia, [address] 846.0 Of [facility] M.DTamiko Office Visit 08/17/2008 1:30a [facility], Pradeep Quan, [address] 786.50 Hospitalists M.DTamiko Office Visit 08/16/2008 1:45a [facility], Pradeep Quan, 12980 786.50 Hospitalists M.DTamiko Office Visit 08/15/2008 2:00a [facility], Darryl Patino M.D. 62117 786.50 Hospitalists Office Visit 08/14/2008 12:15a [facility], [place] [address] 786.50 Hospitalists Shyam Carlos Plan of Care 11/08/2017 - Brijesh Wilson M.D.L03.012 Cellulitis of left fingerFollow up:As needed
[2017-11-11 15:00] VITALS: BP 160/98
[2017-11-11] MEDS ORDERED: Albuterol/Ipratropium NEB.SOL* Albuterol 2.5 MG/Ipratropium 0.5 MG 3 ML INH ONE (15:21)
[2017-11-11] MEDS ORDERED: predniSONE TAB* 20 MG PO ONE (15:22)
--- NOTE | 2017-11-11 15:35 | UC ---
Asthma HPI - HPI Summary HPI Summary: Communication was written since educational sign language interpreter was unavailable. 57 yo patient who states has been having wheezing and left ear pain for the past 2 days. Patient denies fever or chills. She states she has not had many episodes of asthma this year since she is taking budesonide every day bid. - History of Current Complaint Chief Complaint: UCRespiratory Stated Complaint: WHEEZING COUGH Time Seen by Provider: 11/11/17 15:14 Hx Obtained From: Patient Hx Last Menstrual Period: rope cutter ?: No Onset/Duration: Sudden Onset, Lasting Days Timing: Hours Initial Severity: Mild Current Severity: Mild Pain Intensity: 3 Location/Character: Cough (Productive) Aggravating Factor(s): Weather Change Alleviating Factor(s): Inhalers/Nebulizers Associated Signs and Symptoms: Positive: Negative - Risk Factors Status Asthmaticus Risk Factors: Negative - Allergy/Home Medications Allergies/Adverse Reactions: Allergies Allergy/AdvReac Type Severity Reaction Status Date / Time hydrocodone Allergy Severe Vomiting Verified 11/11/17 15:20 latex Allergy Severe Rash Verified 11/11/17 15:02 morphine Allergy Severe Unknown Verified 11/11/17 15:20 Reaction Details Sulfa (Sulfonamide Allergy Severe UNK Verified 11/11/17 15:02 Antibiotics) tramadol Allergy Severe Difficulty Verified 11/11/17 15:02 Breathing acetaminophen Allergy UNK Verified 11/11/17 15:02 azithromycin Allergy Unknown Verified 11/11/17 15:02 Reaction Details clarithromycin Allergy UNK Verified 11/11/17 15:02 Penicillins Allergy UNK Verified 11/11/17 15:02 NUTS Allergy Severe Rash Uncoded 11/11/17 15:02 TAPE: SILK OR ADHESIVE Allergy Severe Rash Uncoded 11/11/17 15:02 Home Medications: Home Medications Empagliflozin [Jardiance] 10 mg PO BEDTIME 11/11/17 [History Confirmed 11/11/17] PMH/Surg Hx/FS Hx/Imm Hx Previously Healthy: Yes Endocrine History: Diabetes, Dyslipidemia Cardiovascular History: Hypertension Respiratory History: Asthma Other History Of: Negative For: HIV, Hepatitis B, Hepatitis C, Anticoagulant Therapy - Surgical History Surgical History: Yes Surgery Procedure, Year, and Place: tonsils; breast reduction; tubal ligation; Gall Bladder, R wrist. LEFT Shoulder. Surgery under her Chin, Cant recall for what. right arm surgery 2013. pins removed from elbow 2014 - Family History Known Family History: Positive: Cardiac Disease, Hypertension, Diabetes, Other - Asthma - Social History Alcohol Use: None Alcohol Amount: MAYBE A FEW A YEAR Substance Use Type: None Smoking Status (MU): Never Smoked Tobacco Have You Smoked in the Last Year: No When Did the Patient Quit Smoking/Using Tobacco: 2010 Household Exposure Type: Cigarettes - Immunization History Most Recent Influenza Vaccination: 12/09 Most Recent Tetanus Shot: unsure Hx Tetanus, Diphtheria Vaccination: Yes Vaccination Up to Date: Yes Review of Systems Constitutional: Negative Respiratory: Shortness Of Breath, Cough All Other Systems Reviewed And Are Negative: Yes Physical Exam Triage Information Reviewed: Yes Appearance: Well-Appearing, No Pain Distress, Obese Vital Signs: Initial Vital Signs Temp 98.4 F 11/11/17 14:49 Pulse 73 11/11/17 14:49 Resp 24 11/11/17 14:49 BP 160/98 11/11/17 14:49 Pulse Ox 98 11/11/17 14:49 Vital Signs Reviewed: Yes Eyes: Positive: Conjunctiva Clear ENT: Positive: Pharynx normal, TMs normal - right, TM red - left, Other - Deaf Neck: Positive: Supple, Nontender, No Lymphadenopathy Respiratory: Positive: Chest non-tender, Wheezing Cardiovascular: Positive: RRR, No Murmur, Pulses Normal, Brisk Capillary Refill Abdomen Description: Positive: Nontender Asthma Course/Dx - Course Course Of Treatment: asthma exacerbation, patient responded to albuterol nebulization and prednisone first dose was administered at . Refills of medications prescribed. F/u with PCP - Differential Dx/Diagnosis Provider Diagnoses: Bronchial asthma exacerbation. Left Acute otitis media Discharge - Sign-Out/Discharge Documenting (check all that apply): Patient Departure - Discharge Plan Condition: Good Disposition: HOME Referrals: Sapna Sinha MD [Primary Care Provider] - - Billing Disposition and Condition Condition: GOOD Disposition: Home
== END 2017-11-11 16:00 | disposition home or self-care (01) ==
LOC: UCEAST 14:10
DX: J45.901 Unspecified asthma with (acute) exacerbation (principal); H66.92 Otitis media, unspecified, left ear; Z88.0 Allergy status to penicillin; Z88.2 Allergy status to sulfonamides; Z88.8 Allergy status to other drugs, medicaments and biological substances; Z88.6 Allergy status to analgesic agent; Z88.1 Allergy status to other antibiotic agents; Z91.040 Latex allergy status; Z88.5 Allergy status to narcotic agent; Z91.018 Allergy to other foods; E11.9 Type 2 diabetes mellitus without complications; E78.5 Hyperlipidemia, unspecified; I10 Essential (primary) hypertension
CPT/HCPCS: 99213; A9270-GY; G0463; J7512

== ENCOUNTER 2017-11-20 17:12 | Emergency (ER) | payer MEDICARE, MEDICAID ==
[2017-11-20 17:53] VITALS: BP 128/84
[2017-11-20] MEDS ORDERED: Hydrocortisone 1% CREAM* 30 GM TUBE TOPICAL ONE (17:57)
--- NOTE | 2017-11-20 18:32 | UC ---
Skin Complaint HPI - HPI Summary HPI Summary: Patient is a 57-year-old female presenting to the with complaint of itching under the left breast 2 days. She has not used anything for relief. Denies any known bug bites. Denies any erythema or warmth. She denies any fevers or recent illness. She denies any pain to the area. 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 ?: No Onset/Duration: Sudden Onset Timing: Constant Onset Severity: Moderate Current Severity: Moderate Pain Intensity: 0 Pain Scale Used: 0-10 Numeric Location: Discrete - under left breast Aggravating Factor(s): Nothing Alleviating Factor(s): Nothing - Allergy/Home Medications Allergies/Adverse Reactions: Allergies Allergy/AdvReac Type Severity Reaction Status Date / Time hydrocodone Allergy Severe Vomiting Verified 11/20/17 17:53 latex Allergy Severe Rash Verified 11/20/17 17:53 morphine Allergy Severe Unknown Verified 11/20/17 17:53 Reaction Details Sulfa (Sulfonamide Allergy Severe UNK Verified 11/20/17 17:53 Antibiotics) tramadol Allergy Severe Difficulty Verified 11/20/17 17:53 Breathing acetaminophen Allergy UNK Verified 11/20/17 17:53 azithromycin Allergy Unknown Verified 11/20/17 17:53 Reaction Details clarithromycin Allergy UNK Verified 11/20/17 17:53 Penicillins Allergy UNK Verified 11/20/17 17:53 NUTS Allergy Severe Rash Uncoded 11/20/17 17:53 TAPE: SILK OR ADHESIVE Allergy Severe Rash Uncoded 11/20/17 17:53 Review of Systems Constitutional: Negative Skin: Other - itching under left breast Respiratory: Negative Cardiovascular: Negative Neurovascular: Negative Musculoskeletal: Negative Neurological: Negative Is Patient Immunocompromised?: No All Other Systems Reviewed And Are Negative: Yes PMH/Surg Hx/FS Hx/Imm Hx Previously Healthy: Yes Other History Of: Negative For: HIV, Hepatitis B, Hepatitis C, Anticoagulant Therapy - Surgical History Surgical History: Yes Surgery Procedure, Year, and Place: tonsils; breast reduction; tubal ligation; Gall Bladder, R wrist. LEFT Shoulder. Surgery under her Chin, Cant recall for what. right arm surgery 2013. pins removed from elbow 2014 - Family History Known Family History: Positive: Cardiac Disease, Hypertension, Diabetes, Other - Asthma - Social History Occupation: Unemployed Lives: Alone Alcohol Use: None Alcohol Amount: MAYBE A FEW A YEAR Substance Use Type: None Smoking Status (MU): Never Smoked Tobacco Have You Smoked in the Last Year: No When Did the Patient Quit Smoking/Using Tobacco: 2010 Household Exposure Type: Cigarettes - Immunization History Most Recent Influenza Vaccination: 12/09 Most Recent Tetanus Shot: unsure Hx Tetanus, Diphtheria Vaccination: Yes Vaccination Up to Date: Yes Physical Exam Triage Information Reviewed: Yes Appearance: Well-Appearing, Well-Nourished Vital Signs: Initial Vital Signs Temp 97.3 F 11/20/17 17:40 Pulse 85 11/20/17 17:40 Resp 16 11/20/17 17:40 BP 128/84 11/20/17 17:40 Pulse Ox 96 11/20/17 17:40 Vital Signs Reviewed: Yes Eye Exam: Normal Eyes: Positive: Conjunctiva Clear Neck exam: Normal Neck: Positive: Supple, Nontender Respiratory Exam: Normal Respiratory: Positive: Chest non-tender, Lungs clear Cardiovascular Exam: Normal Cardiovascular: Positive: RRR Musculoskeletal: Positive: Strength Intact Neurological: Positive: Alert Psychological Exam: Normal Psychological: Positive: Normal Response To Family Skin: Positive: Other - itching under left breast Course/Dx - Course Course Of Treatment: Physical examination, there is no apparent rash, evidence of cellulitis or other infection, bug bite or signs of intertrigo. Patient is given hydrocortisone cream for relief of itching. - Diagnoses Provider Diagnoses: Itching under breast Discharge - Sign-Out/Discharge Documenting (check all that apply): Patient Departure All imaging exams completed and their final reports reviewed: No Studies - Discharge Plan Condition: Stable Disposition: HOME Referrals: Sapna Sinha MD [Primary Care Provider] - - Billing Disposition and Condition Condition: STABLE Disposition: Home
== END 2017-11-20 18:15 | disposition home or self-care (01) ==
LOC: UCEAST 17:12
DX: N64.59 Other signs and symptoms in breast (principal); L29.9 Pruritus, unspecified; Z88.2 Allergy status to sulfonamides; Z88.5 Allergy status to narcotic agent; Z88.8 Allergy status to other drugs, medicaments and biological substances; Z91.040 Latex allergy status; Z88.0 Allergy status to penicillin; Z88.1 Allergy status to other antibiotic agents; Z91.09 Other allergy status, other than to drugs and biological substances; Z91.018 Allergy to other foods
CPT/HCPCS: 99212; A9270-GY; G0463

== ENCOUNTER 2017-11-22 12:41 | Emergency (ER) | payer MEDICARE, MEDICAID ==
[2017-11-22 14:05] VITALS: BP 142/82
--- NOTE | 2017-11-22 14:09 | UC ---
Complaint Female HPI - HPI Summary HPI Summary: A 57 y/o F is speaking via an japanese interpreter [place] [facility] [place]o acute on chronic L-sided vaginal pain worsening a few days ago. Pt saw Dr. Sinha approx. 2 months ago for similar sx, and was given a medicated cream, but the pt has since run out of the cream. She is scheduled to see Dr. Sinha on . Shes tried a variety of creams but states the skin isnt healing properly. Associated sx: vaginal itching and discharge. Denies dysuria. 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 Hx Last Menstrual Period: POST Onset/Duration: Still Present Timing: Constant Severity Currently: Mild Pain Intensity: 2 Pain Scale Used: 0-10 Numeric Associated Signs And Symptoms: Positive: Vaginal Discharge - Allergies/Home Medications Allergies/Adverse Reactions: Allergies Allergy/AdvReac Type Severity Reaction Status Date / Time hydrocodone Allergy Severe Vomiting Verified 11/20/17 17:53 latex Allergy Severe Rash Verified 11/20/17 17:53 morphine Allergy Severe Unknown Verified 11/20/17 17:53 Reaction Details Sulfa (Sulfonamide Allergy Severe UNK Verified 11/20/17 17:53 Antibiotics) tramadol Allergy Severe Difficulty Verified 11/20/17 17:53 Breathing acetaminophen Allergy UNK Verified 11/20/17 17:53 azithromycin Allergy Unknown Verified 11/20/17 17:53 Reaction Details clarithromycin Allergy UNK Verified 11/20/17 17:53 Penicillins Allergy UNK Verified 11/20/17 17:53 NUTS Allergy Severe Rash Uncoded 11/20/17 17:53 TAPE: SILK OR ADHESIVE Allergy Severe Rash Uncoded 11/20/17 17:53 PMH/Surg Hx/FS Hx/Imm Hx Previously Healthy: No - pos: deafness Endocrine History: Diabetes - type 2 Cardiovascular History: Hypertension Respiratory History: Asthma, Bronchitis GI/ History: Gastroesophageal Reflux Other History Of: Negative For: HIV, Hepatitis B, Hepatitis C, Anticoagulant Therapy - Surgical History Surgical History: Yes Surgery Procedure, Year, and Place: tonsils; breast reduction; tubal ligation; Gall Bladder, R wrist. LEFT Shoulder. Surgery under her Chin, Cant recall for what. right arm surgery 2013. pins removed from elbow 2014 - Family History Known Family History: Positive: Cardiac Disease, Hypertension, Diabetes, Other - Asthma - Social History Occupation: Disabled Lives: Alone Alcohol Use: None Alcohol Amount: MAYBE A FEW A YEAR Substance Use Type: None Smoking Status (MU): Never Smoked Tobacco Have You Smoked in the Last Year: No When Did the Patient Quit Smoking/Using Tobacco: 2010 Household Exposure Type: Cigarettes - Immunization History Most Recent Influenza Vaccination: 12/09 Most Recent Tetanus Shot: unsure Hx Tetanus, Diphtheria Vaccination: Yes Vaccination Up to Date: Yes Review of Systems Respiratory: Other - neg: cough Genitourinary: Vaginal/Penile Itching, Vaginal/Penile Discharge, Vaginal/Penile Pain, Other - neg: dysuria All Other Systems Reviewed And Are Negative: Yes Physical Exam - Summary Physical Exam Summary: General: well-appearing, no pain distress Skin: warm, color reflects adequate perfusion, dry Head: normal Eyes: EOMI, FIGUEROA ENT: normal Neck: supple, nontender Respiratory: CTA, breath sounds present Cardiovascular: RRR Abdomen: soft, nontender Bowel: present Musculoskeletal: normal, strength/ROM intact Neurological: sensory/motor intact, A&O x3 Psychological: affect/mood appropriate GENITAL EXAM: Chaperoned by nurse Elaina. Stone inguinal crease has tenderness, erythema and skin breakdown, no drainage. Triage Information Reviewed: Yes Vital Signs: Initial Vital Signs Temp 96.3 F 11/22/17 13:55 Pulse 84 11/22/17 13:55 Resp 16 11/22/17 13:55 BP 142/82 11/22/17 13:55 Pulse Ox 99 11/22/17 13:55 Vital Signs Reviewed: Yes Re-Evaluation - Re-Evaluation 1 Re-Evaluation Time: 14:24 Change: Unchanged Complaint Female Dx - Course Course Of Treatment: BP noted and advised to follow up with PCP. Medications reviewed. Allergies noted. RASH APPEARS TO BE MOIST WITH YEAST - Differential Dx/Diagnosis Provider Diagnoses: INGUINAL RASH Discharge - Sign-Out/Discharge Documenting (check all that apply): Patient Departure - DC All imaging exams completed and their final reports reviewed: No Studies - Discharge Plan Condition: Stable Disposition: HOME Prescriptions: Nystatin TOP POWDER* 1 applic TOPICAL BID #1 btl Patient Education Materials: Te Martins (ED) Referrals: Sapna Sinha MD [Primary Care Provider] - Additional Instructions: FOLLOW UP WITH YOUR DOCTOR. GET RECHECKED FOR ANY WORSENING OF YOUR CONDITION OR QUESTIONS OR CONCERNS. - Billing Disposition and Condition Condition: STABLE Disposition: Home - Attestation Statements Document Initiated by Aramibe: Yes Documenting Scribe: Cuca Guzman Provider For Whom Iman is Documenting (Include Credential): Abner Hayes MD Scribe Attestation: ICuca, scribed for Abner Hayes MD on 11/22/17 at 1430. Scribe Documentation Reviewed: Yes Provider Attestation: The documentation as recorded by the Cuca martins accurately reflects the service I personally performed and the decisions made by me, Abner Hayes MD
== END 2017-11-22 14:46 | disposition home or self-care (01) ==
LOC: UCEAST 12:41
DX: R21 Rash and other nonspecific skin eruption (principal); E11.9 Type 2 diabetes mellitus without complications; Z87.891 Personal history of nicotine dependence; I10 Essential (primary) hypertension; J45.909 Unspecified asthma, uncomplicated; Z91.040 Latex allergy status; Z88.5 Allergy status to narcotic agent; Z88.2 Allergy status to sulfonamides; Z88.1 Allergy status to other antibiotic agents; Z88.0 Allergy status to penicillin; Z91.09 Other allergy status, other than to drugs and biological substances
CPT/HCPCS: 99212; G0463

== ENCOUNTER 2018-01-05 13:14 | Emergency (ER) | payer MEDICAID, MEDICARE ==
[2018-01-05 14:49] VITALS: BP 152/94
--- NOTE | 2018-01-05 15:23 | UC ---
Skin Complaint HPI - HPI Summary HPI Summary: The patient is a 57-year-old female that presents here for evaluation of both left otalgia as well as bilateral arm rash. He states she has had nasal congestion and postnasal drip for a few weeks. Her rash is very pruritic and has been around for a couple weeks as well. He denies any new soaps or detergents. His not had any fever or chills. She has a history of asthma and states she has been wheezing intermittently. Patient is deaf and this history is been obtained through an e business manager. - History of Current Complaint Chief Complaint: UCRespiratory Time Seen by Provider: 01/05/18 15:00 Stated Complaint: L EAR AND RESP COMPLAINT Hx Obtained From: Patient Hx Last Menstrual Period: POST Onset/Duration: Gradual Onset, Lasting Weeks Timing: Constant Onset Severity: Mild Current Severity: Moderate Pain Intensity: 4 Pain Scale Used: 0-10 Numeric Location: Other - r/l arm Character: Pruritus, Redness Aggravating Factor(s): Nothing Alleviating Factor(s): Nothing Associated Signs & Symptoms: Positive: Cough, Rash - Allergy/Home Medications Allergies/Adverse Reactions: Allergies Allergy/AdvReac Type Severity Reaction Status Date / Time hydrocodone Allergy Severe Vomiting Verified 01/05/18 14:50 latex Allergy Severe Rash Verified 01/05/18 14:50 morphine Allergy Severe Unknown Verified 01/05/18 14:50 Reaction Details Sulfa (Sulfonamide Allergy Severe UNK Verified 01/05/18 14:50 Antibiotics) tramadol Allergy Severe Difficulty Verified 01/05/18 14:50 Breathing acetaminophen Allergy UNK Verified 01/05/18 14:50 azithromycin Allergy Unknown Verified 01/05/18 14:50 Reaction Details clarithromycin Allergy UNK Verified 01/05/18 14:50 diphenhydramine Allergy Itching Verified 01/05/18 14:50 [From Benadryl] Penicillins Allergy UNK Verified 01/05/18 14:50 NUTS Allergy Severe Rash Uncoded 12/02/17 21:32 TAPE: SILK OR ADHESIVE Allergy Severe Rash Uncoded 12/02/17 21:32 Home Medications: Home Medications Empagliflozin [Jardiance] 10 mg PO 01/05/18 [History] Review of Systems Constitutional: Negative Skin: Rash Eyes: Negative ENT: Ear Ache, Nasal Discharge, Sinus Pain/Tenderness Respiratory: Cough Cardiovascular: Negative Gastrointestinal: Negative Genitourinary: Negative Motor: Negative Neurovascular: Negative Musculoskeletal: Negative Neurological: Negative Psychological: Negative All Other Systems Reviewed And Are Negative: Yes PMH/Surg Hx/FS Hx/Imm Hx Endocrine History: Diabetes, Dyslipidemia Cardiovascular History: Hypertension Respiratory History: Asthma Other History Of: Negative For: HIV, Hepatitis B, Hepatitis C, Anticoagulant Therapy - Surgical History Surgical History: Yes Surgery Procedure, Year, and Place: tonsils; breast reduction; tubal ligation; Gall Bladder, R wrist. LEFT Shoulder. Surgery under her Chin, Cant recall for what. right arm surgery 2013. pins removed from elbow 2014 - Family History Known Family History: Positive: Cardiac Disease, Hypertension, Diabetes, Other - Asthma - Social History Alcohol Use: None Alcohol Amount: MAYBE A FEW A YEAR Substance Use Type: None Smoking Status (MU): Never Smoked Tobacco Have You Smoked in the Last Year: No When Did the Patient Quit Smoking/Using Tobacco: 2010 Household Exposure Type: Cigarettes - Immunization History Most Recent Influenza Vaccination: 12/09 Most Recent Tetanus Shot: unsure Hx Tetanus, Diphtheria Vaccination: Yes Vaccination Up to Date: Yes Physical Exam Triage Information Reviewed: Yes Appearance: Well-Appearing, No Pain Distress, Well-Nourished Vital Signs: Initial Vital Signs Temp 96.5 F 01/05/18 14:45 Pulse 54 01/05/18 14:45 Resp 18 01/05/18 14:45 BP 152/94 01/05/18 14:45 Pulse Ox 97 01/05/18 14:45 Vital Signs Reviewed: Yes Eyes: Positive: Conjunctiva Clear ENT: Positive: Pharynx normal, Nasal congestion, TM bulging - L, Uvula midline. Negative: Hearing grossly normal, Nasal drainage, TMs normal, TM dull, TM red , Tonsillar swelling, Tonsillar exudate, Trismus, Muffled voice, Hoarse voice, Dental tenderness, Sinus tenderness Dental: Positive: Other: - upper plate Neck: Positive: Supple, Nontender, No Lymphadenopathy Respiratory: Positive: Lungs clear, Normal breath sounds, No respiratory distress, No accessory muscle use Cardiovascular: Positive: RRR, No Murmur Musculoskeletal: Positive: ROM Intact, No Edema Neurological: Positive: Alert Psychological Exam: Normal Skin: Positive: Other - red excoriated rash on both forearms Course/Dx - Diagnoses Provider Diagnoses: left otitis externa. acute upper ext rash of uncertain cause Discharge - Sign-Out/Discharge Documenting (check all that apply): Patient Departure All imaging exams completed and their final reports reviewed: No Studies - Discharge Plan Condition: Stable Disposition: HOME Prescriptions: Fluticasone NASAL SPRAY 50MCG* [Flonase NASAL SPRAY 50MCG*] 2 spray BOTH NARES BID #1 btl Triamcinolone 0.5% CREAM(NF) [Triamcinolone 0.5% CREAM*] 1 applic TOPICAL QID # 60 tube Patient Education Materials: Acute Rash (ED), Serous Otitis Media (ED) Referrals: Sapna Sinha MD [Primary Care Provider] - If Needed () - Billing Disposition and Condition Condition: STABLE Disposition: Home
== END 2018-01-05 15:25 | disposition home or self-care (01) ==
LOC: UCEAST 13:14
DX: H60.92 Unspecified otitis externa, left ear (principal); R21 Rash and other nonspecific skin eruption; E11.9 Type 2 diabetes mellitus without complications; Z79.4 Long term (current) use of insulin; Z88.6 Allergy status to analgesic agent; Z88.1 Allergy status to other antibiotic agents; Z91.040 Latex allergy status; Z88.5 Allergy status to narcotic agent; Z91.018 Allergy to other foods; Z88.0 Allergy status to penicillin; Z88.2 Allergy status to sulfonamides; Z88.8 Allergy status to other drugs, medicaments and biological substances; Z91.048 Other nonmedicinal substance allergy status; Z87.891 Personal history of nicotine dependence
CPT/HCPCS: 99212; G0463

== ENCOUNTER 2018-01-30 13:07 | Emergency (ER) | payer MEDICAID, MEDICARE ==
[2018-01-30 14:41] VITALS: BP 155/100
[2018-01-30] MEDS ORDERED: Triamcinolone Acetonide* 40 MG/ML 1 ML VIAL IM ONE (15:39)
--- NOTE | 2018-01-30 15:41 | UC ---
Skin Complaint HPI - HPI Summary HPI Summary: The patient is a 57-year-old female that presents here for evaluation of a rash. She is deaf and the history was obtained through an interpreter and translator. The rash started in mid to late November. She was seen here by me in early January. That time her rash was confined to jest her elbows. She was started on 0.5% triamcinolone cream. She was seen a few days later by a c s s representative. She was continued on the triamcinolone cream. Since then her rash has worsened. It is spread to her abdomen as well as her shins and ankles. She has no rash on her hands or feet. She feels like it is starting on her neck and left face. She denies any new soaps or detergents. She attempted to call her c s s representative however her office was closed at 12 noon today. She states that in the past she has taken Benadryl for a sleep aid. She states that she used to take it at bedtime however she would wake up about 3 hours later and feel itchy. She also stated she would feel a little agitated and half to walk around. Because of this she no longer takes Benadryl. She does not know if she has ever taken Atarax before. - History of Current Complaint Chief Complaint: UCRash Time Seen by Provider: 01/30/18 15:23 Stated Complaint: RASH,ABD PAIN,EAR PAIN Hx Obtained From: Patient Hx Last Menstrual Period: POST Onset/Duration: Gradual Onset, Lasting Weeks Timing: Constant Onset Severity: Moderate Pain Intensity: 4 Pain Scale Used: 0-10 Numeric Location: Diffuse Character: Pruritus, Redness Aggravating Factor(s): Nothing Alleviating Factor(s): Nothing Associated Signs & Symptoms: Positive: Rash - Allergy/Home Medications Allergies/Adverse Reactions: Allergies Allergy/AdvReac Type Severity Reaction Status Date / Time hydrocodone Allergy Severe Vomiting Verified 01/30/18 14:41 latex Allergy Severe Rash Verified 01/30/18 14:41 morphine Allergy Severe Unknown Verified 01/30/18 14:41 Reaction Details Sulfa (Sulfonamide Allergy Severe UNK Verified 01/30/18 14:41 Antibiotics) tramadol Allergy Severe Difficulty Verified 01/30/18 14:41 Breathing acetaminophen Allergy UNK Verified 01/30/18 14:41 azithromycin Allergy Unknown Verified 01/30/18 14:41 Reaction Details clarithromycin Allergy UNK Verified 01/30/18 14:41 diphenhydramine Allergy Itching Verified 01/30/18 14:41 [From Benadryl] Penicillins Allergy UNK Verified 01/30/18 14:41 NUTS Allergy Severe Rash Uncoded 01/30/18 14:41 TAPE: SILK OR ADHESIVE Allergy Severe Rash Uncoded 01/30/18 14:41 Home Medications: Home Medications Jurdiance 10 mg PO DAILY WITH MEAL 01/30/18 [History Confirmed 01/30/18] Review of Systems Constitutional: Negative Skin: Rash Eyes: Negative ENT: Negative Respiratory: Negative Cardiovascular: Negative Gastrointestinal: Negative Genitourinary: Negative Motor: Negative Neurovascular: Negative Musculoskeletal: Negative Neurological: Negative Psychological: Negative All Other Systems Reviewed And Are Negative: Yes PMH/Surg Hx/FS Hx/Imm Hx Previously Healthy: Yes Endocrine History: Diabetes, Dyslipidemia Cardiovascular History: Hypertension Other History Of: Negative For: HIV, Hepatitis B, Hepatitis C, Anticoagulant Therapy - Surgical History Surgical History: Yes Surgery Procedure, Year, and Place: tonsils; breast reduction; tubal ligation; Gall Bladder, R wrist. LEFT Shoulder. Surgery under her Chin, Cant recall for what. right arm surgery 2013. pins removed from elbow 2014 - Family History Known Family History: Positive: Cardiac Disease, Hypertension, Diabetes, Other - Asthma - Social History Alcohol Use: None Alcohol Amount: MAYBE A FEW A YEAR Substance Use Type: None Smoking Status (MU): Never Smoked Tobacco Have You Smoked in the Last Year: No When Did the Patient Quit Smoking/Using Tobacco: 2010 Household Exposure Type: Cigarettes - Immunization History Most Recent Influenza Vaccination: 12/09 Most Recent Tetanus Shot: unsure Hx Tetanus, Diphtheria Vaccination: Yes Vaccination Up to Date: Yes Physical Exam Triage Information Reviewed: Yes Appearance: Well-Appearing, No Pain Distress, Well-Nourished Vital Signs: Initial Vital Signs Temp 97.8 F 01/30/18 14:35 Pulse 88 01/30/18 14:35 Resp 18 01/30/18 14:35 BP 155/100 01/30/18 14:35 Pulse Ox 97 01/30/18 14:35 Vital Signs Reviewed: Yes Eyes: Positive: Conjunctiva Clear ENT: Negative: Hearing grossly normal, Nasal congestion, Nasal drainage Neck: Positive: Supple Respiratory: Positive: Lungs clear, Normal breath sounds, No respiratory distress Cardiovascular: Positive: RRR Skin Exam: Other - The rash over the extensor aspects of her elbows is thickened and has a silver scale is consistent in appearance with psoriasis. The rash on her lower extremities appears thickened and is difficult to describe due to secondary excoriations. She has no burrows noted. He has no urticaria. Course/Dx - Diagnoses Provider Diagnoses: acute rash of uncertain etiology Discharge - Sign-Out/Discharge Documenting (check all that apply): Patient Departure All imaging exams completed and their final reports reviewed: No Studies - Discharge Plan Condition: Stable Disposition: HOME Prescriptions: hydrOXYzine HCL TAB* [Atarax TAB*] 25 mg PO QID PRN #20 tab PRN Reason: Itching Patient Education Materials: Acute Rash (ED) Referrals: Dedra Parker MD [Medical Doctor] - As Soon As Possible Sapna Sinha MD [Primary Care Provider] - 2 Weeks (BP 150/100 here and should be followed up) Additional Instructions: TRY SARNA anti itch lotion (available OTC) If the atarax ( hydroxyzine) affects you the same way as the bendadryl please stop it - Billing Disposition and Condition Condition: STABLE Disposition: Home
== END 2018-01-30 15:55 | disposition home or self-care (01) ==
LOC: UCEAST 13:07
DX: R21 Rash and other nonspecific skin eruption (principal); E11.9 Type 2 diabetes mellitus without complications; I10 Essential (primary) hypertension; Z88.5 Allergy status to narcotic agent; Z88.2 Allergy status to sulfonamides; Z88.6 Allergy status to analgesic agent; Z88.1 Allergy status to other antibiotic agents; Z88.0 Allergy status to penicillin; Z91.018 Allergy to other foods; Z91.048 Other nonmedicinal substance allergy status; Z91.040 Latex allergy status
CPT/HCPCS: 96372; 99212; G0463; J3301

== ENCOUNTER 2018-03-03 19:46 | Emergency (ER) | payer MEDICARE, MEDICAID ==
[2018-03-03] MEDS ORDERED: Hydrocortisone 1% CREAM* 30 GM TUBE TOPICAL ONE (20:12)
[2018-03-03 20:16] VITALS: BP 173/96
--- NOTE | 2018-03-03 20:59 | ED ---
Skin Complaint - HPI Summary HPI Summary: Patient is a 57yo F presenting to the with a variety of complaints. She states she had a biopsy on her left side body of the skin a few days ago and needs her bandages changed. She is also stating she has had a rash over the past several years and has been prescribed several different types of ointments and creams without relief. She is currently taking Atarax without relief of pruritus. She is also endorsing some bilateral ear pain and headache which has been present over the course of today. 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 Onset/Duration: Started Hours Ago, Still Present Timing: Constant Onset Severity: Moderate Current Severity: Mild Pain Intensity: 0 Pain Scale Used: 0-10 Numeric Skin Location: Diffuse, Other: - worse to the left upper arm Character: Pain, Hives, Redness, Raised, Painful Aggravating Symptom(s): Nothing Alleviating Symptom(s): Nothing Associated Signs & Symptoms: Negative - Allergy/Home Medications Allergies/Adverse Reactions: Allergies Allergy/AdvReac Type Severity Reaction Status Date / Time hydrocodone Allergy Severe Vomiting Verified 03/03/18 20:16 latex Allergy Severe Rash Verified 03/03/18 20:16 morphine Allergy Severe Unknown Verified 03/03/18 20:16 Reaction Details Sulfa (Sulfonamide Allergy Severe UNK Verified 03/03/18 20:16 Antibiotics) tramadol Allergy Severe Difficulty Verified 03/03/18 20:16 Breathing acetaminophen Allergy UNK Verified 03/03/18 20:16 azithromycin Allergy Unknown Verified 03/03/18 20:16 Reaction Details clarithromycin Allergy UNK Verified 03/03/18 20:16 diphenhydramine Allergy Itching Verified 03/03/18 20:16 [From Benadryl] Penicillins Allergy UNK Verified 03/03/18 20:16 NUTS Allergy Severe Rash Uncoded 03/03/18 20:16 TAPE: SILK OR ADHESIVE Allergy Severe Rash Uncoded 03/03/18 20:16 Home Medications: Home Medications metroNIDAZOLE [Metronidazole 0.75 % gel] 37.5 mg TOPICAL BID 03/03/18 [History Confirmed 03/03/18] PMH/Surg Hx/FS Hx/Imm Hx Previously Healthy: Yes Endocrine/Hematology History: Reports: Hx Diabetes - type 2 Denies: Hx Anticoagulant Therapy, Hx Thyroid Disease Cardiovascular History: Reports: Hx Hypercholesterolemia, Hx Hypertension Denies: Hx Congestive Heart Failure, Hx Deep Vein Thrombosis, Hx Myocardial Infarction, Hx Pacemaker/ICD Respiratory History: Reports: Hx Asthma Denies: Hx Chronic Obstructive Pulmonary Disease (COPD), Hx Lung Cancer, Hx Pneumonia, Hx Pulmonary Embolism GI History: Reports: Hx Gastroesophageal Reflux Disease - PER PT'S MOTHER Denies: Hx Gall Bladder Disease, Hx Gastrointestinal Bleed, Hx Ulcer, Hx Urosepsis History: Denies: Hx Kidney Stones, Hx Renal Disease Sensory History: Reports: Hx Contacts or Glasses, Hx Deafness, Other Sensory Impairments - DEAF. Sign Language Opthamlomology History: Reports: Hx Contacts or Glasses, Other Sensory Impairments - DEAF. Sign Language Neurological History: Denies: Hx Dementia, Hx Migraine, Hx Seizures, Hx Transient Ischemic Attacks (TIA) Psychiatric History: Reports: Hx Bipolar Disorder Denies: Hx Anxiety, Hx Depression, Hx Schizophrenia - Surgical History Surgery Procedure, Year, and Place: tonsils; breast reduction; tubal ligation; Gall Bladder, R wrist. LEFT Shoulder. Surgery under her Chin, Cant recall for what. right arm surgery 2013. pins removed from elbow 2015 Hx Anesthesia Reactions: No - Immunization History Hx Pertussis Vaccination: No Immunizations Up to Date: Yes Infectious Disease History: No Infectious Disease History: Denies: Hx Clostridium Difficile, Hx Hepatitis, Hx Human Immunodeficiency Virus (HIV), Hx of Known/Suspected MRSA, Hx Shingles, Hx Tuberculosis, Hx Known/ Suspected VRE, Hx Known/Suspected VRSA, History Other Infectious Disease, Traveled Outside the [place] in Last 30 Days - Family History Known Family History: Positive: Cardiac Disease, Hypertension, Diabetes, Other - Asthma - Social History Occupation: Unemployed Lives: Alone Alcohol Use: Rare Alcohol Amount: MAYBE A FEW A YEAR Hx Substance Use: No Substance Use Type: Reports: None Hx Tobacco Use: No Smoking Status (MU): Never Smoked Tobacco Have You Smoked in the Last Year: No Review of Systems Negative: Fever, Chills, Fatigue, Skin Diaphoresis Negative: Epistaxis, Dental Pain, Sore Throat Negative: Shortness Of Breath, Cough Genitourinary: Negative Positive: no symptoms reported, see HPI Negative: Arthralgia, Myalgia Positive: Rash - pruritis to the upper left arm with raised lesions, Other Neurological: Negative All Other Systems Reviewed And Are Negative: Yes Physical Exam Triage Information Reviewed: Yes Vital Signs On Initial Exam: Initial Vitals Temp Pulse Resp BP Pulse Ox 98.0 F 78 16 173/96 97 03/03/18 20:02 03/03/18 20:02 03/03/18 20:02 03/03/18 20:02 03/03/18 20:02 Vital Signs Reviewed: Yes Appearance: Positive: Well-Appearing, Well-Nourished Skin: Positive: Warm, Skin Color Reflects Adequate Perfusion, Other - .5cm- 1.0cm raised areas to the upper arm with pruritis Head/Face: Positive: Normal Head/Face Inspection Eyes: Positive: EOMI, FIGUEROA, Conjunctiva Clear Neck: Positive: Supple, No Lymphadenopathy Respiratory/Lung Sounds: Positive: Clear to Auscultation, Breath Sounds Present Cardiovascular: Positive: RRR Musculoskeletal: Positive: Normal, Strength/ROM Intact Neurological: Positive: Speech Normal Diagnostics - Vital Signs Vital Signs Temp Pulse Resp BP Pulse Ox 03/03/18 20:02 98.0 F 78 16 173/96 97 - Laboratory Lab Statement: Any lab studies that have been ordered have been reviewed, and results considered in the medical decision making process. Course/Dx - Course Course Of Treatment: Patient is evaluated for a rash to her left upper arm which appears to be small I.5cm-1.0cm raised pruritic lesions. They appears to be bug bites or raised areas which have opened up d/t itching. She was prescribed triamcinolone in the past, however his been using this very frequently and I did not feel it is safe to continue for fear of thinning and drying of the skin. She is encouraged a hydrocortisone cream with gentle washings to the skin and encouraged f/u with PCP for further workup. Bandage replaced to backside. - Differential Diagnoses - Skin Complaint Differential Diagnoses: Other - bug bites, eczema, rash - Diagnoses Provider Diagnoses: Rash Discharge - Sign-Out/Discharge Documenting (check all that apply): Patient Departure All imaging exams completed and their final reports reviewed: No Studies - Discharge Plan Condition: Stable Disposition: HOME Referrals: Sapna Sinha MD [Primary Care Provider] - Additional Instructions: Hydrocortisone cream as needed to affected areas for itching Follow up with your PCP as scheduled on - Billing Disposition and Condition Condition: STABLE Disposition: Home
== END 2018-03-03 20:30 | disposition home or self-care (01) ==
LOC: UCEAST 19:46
DX: R21 Rash and other nonspecific skin eruption (principal); Z88.5 Allergy status to narcotic agent; Z88.1 Allergy status to other antibiotic agents; Z88.0 Allergy status to penicillin; E11.9 Type 2 diabetes mellitus without complications
CPT/HCPCS: 99212; A9270-GY; G0463

== ENCOUNTER 2018-03-10 12:18 | Emergency (ER) | payer MEDICARE, MEDICAID ==
[2018-03-10 12:31] VITALS: BP 163/104
--- NOTE | 2018-03-10 13:06 | UC ---
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 Has been taking fexofenadine twice daily and was directed to use benadryl for itching, but pt states that is not helpful. Would like hydroxyzine 25mg tabs but doesn't have a prescription. 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 Onset/Duration: Gradual Onset, Still Present Timing: Constant Onset Severity: Moderate Current Severity: Mild Pain Intensity: 0 Location: Generalized Character: Pruritus, Hives Aggravating Factor(s): Clothing Alleviating Factor(s): Nothing Associated Signs & Symptoms: Positive: Rash - Allergy/Home Medications Allergies/Adverse Reactions: Allergies Allergy/AdvReac Type Severity Reaction Status Date / Time hydrocodone Allergy Severe Vomiting Verified 03/10/18 12:31 latex Allergy Severe Rash Verified 03/10/18 12:31 morphine Allergy Severe Unknown Verified 03/10/18 12:31 Reaction Details Sulfa (Sulfonamide Allergy Severe UNK Verified 03/10/18 12:31 Antibiotics) tramadol Allergy Severe Difficulty Verified 03/10/18 12:31 Breathing acetaminophen Allergy UNK Verified 03/10/18 12:31 azithromycin Allergy Unknown Verified 03/10/18 12:31 Reaction Details clarithromycin Allergy UNK Verified 03/10/18 12:31 diphenhydramine Allergy Itching Verified 03/10/18 12:31 [From Benadryl] Penicillins Allergy UNK Verified 03/10/18 12:31 NUTS Allergy Severe Rash Uncoded 03/10/18 12:31 TAPE: SILK OR ADHESIVE Allergy Severe Rash Uncoded 03/10/18 12:31 PMH/Surg Hx/FS Hx/Imm Hx Endocrine History: Diabetes Cardiovascular History: Hypertension Respiratory History: Asthma Other History Of: Negative For: HIV, Hepatitis B, Hepatitis C, Anticoagulant Therapy - Surgical History Surgical History: Yes Surgery Procedure, Year, and Place: tonsils; breast reduction; tubal ligation; Gall Bladder, R wrist. LEFT Shoulder. Surgery under her Chin, Cant recall for what. right arm surgery 2013. pins removed from elbow 2014 - Family History Known Family History: Positive: Cardiac Disease, Hypertension, Diabetes, Other - Asthma - Social History Occupation: Disabled Alcohol Use: Rare Alcohol Amount: MAYBE A FEW A YEAR Substance Use Type: None Smoking Status (MU): Never Smoked Tobacco Have You Smoked in the Last Year: No When Did the Patient Quit Smoking/Using Tobacco: 2010 Household Exposure Type: Cigarettes - Immunization History Most Recent Influenza Vaccination: 12/09 Most Recent Tetanus Shot: unsure Hx Tetanus, Diphtheria Vaccination: Yes Vaccination Up to Date: Yes Review of Systems All Other Systems Reviewed And Are Negative: Yes Constitutional: Positive: Negative Skin: Positive: Rash Eyes: Positive: Negative ENT: Positive: Negative Respiratory: Positive: Negative Cardiovascular: Positive: Negative Gastrointestinal: Positive: Negative Genitourinary: Positive: Negative Motor: Positive: Negative Neurovascular: Positive: Negative Musculoskeletal: Positive: Negative Neurological: Positive: Negative Psychological: Positive: Negative Is Patient Immunocompromised?: No Physical Exam Triage Information Reviewed: Yes Appearance: No Pain Distress, Obese Vital Signs: Initial Vital Signs Temp 95.6 F 03/10/18 12:24 Pulse 81 03/10/18 12:24 Resp 18 03/10/18 12:24 BP 163/104 03/10/18 12:24 Pulse Ox 99 03/10/18 12:24 Vital Signs Reviewed: Yes Eye Exam: Normal Eyes: Positive: Conjunctiva Clear ENT Exam: Normal ENT: Positive: Normal ENT inspection, Hearing grossly normal, Pharynx normal, TMs normal Respiratory Exam: Normal Respiratory: Positive: Chest non-tender, Lungs clear, Normal breath sounds, No respiratory distress, No accessory muscle use Cardiovascular Exam: Normal Cardiovascular: Positive: RRR, No Murmur Abdominal Exam: Normal Musculoskeletal Exam: Normal Musculoskeletal: Positive: Strength Intact Neurological Exam: Normal Psychological Exam: Normal Skin Exam: Other - Irregular red, dry patches on the legs Course/Dx - Diagnoses Provider Diagnosis: Pruritic dermatitis, Urticaria Discharge - Sign-Out/Discharge Documenting (check all that apply): Patient Departure All imaging exams completed and their final reports reviewed: No Studies - Discharge Plan Condition: Stable Disposition: HOME Prescriptions: hydrOXYzine HCL TAB* [Atarax 25 MG TAB*] 25 mg PO QID PRN #20 tab PRN Reason: Itching Patient Education Materials: Itchy Skin (ED) Referrals: Sapna Sinha MD [Primary Care Provider] - Additional Instructions: Please continue to follow up with your mechanical manufacturing engineer. I was unable to reach her today, but a copy of this visit will be shared with her if you sign the release form. - Billing Disposition and Condition Condition: STABLE Disposition: Home
== END 2018-03-10 13:05 | disposition home or self-care (01) ==
LOC: UCEAST 12:18
DX: L30.8 Other specified dermatitis (principal); L50.9 Urticaria, unspecified; E11.9 Type 2 diabetes mellitus without complications; I10 Essential (primary) hypertension; J45.909 Unspecified asthma, uncomplicated; Z88.5 Allergy status to narcotic agent; Z91.040 Latex allergy status; Z88.2 Allergy status to sulfonamides; Z91.09 Other allergy status, other than to drugs and biological substances; Z88.1 Allergy status to other antibiotic agents
CPT/HCPCS: 99212; G0463

== ENCOUNTER 2018-03-12 17:14 | Emergency (ER) | payer MEDICARE, MEDICAID ==
[2018-03-12 17:33] VITALS: BP 158/76
--- NOTE | 2018-03-12 18:01 | UC ---
Respiratory Complaint HPI - HPI Summary HPI Summary: 57-year-old woman comes to clinic today with a chief complaint of cough chest congestion and shortness of breath. On for several days. No fevers. Cough is dry. She using an inhaled steroid which she feels is not working well enough. She feels like her asthma is getting worse. Patient is deaf and we used a senior digital designer. We discussed various medications and the patient would like to start a medication to help her with her cough which will be Tessalon Perles and an antibiotic and an oral steroid. Her chest feels tight. 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 Pain Intensity: 8 - Allergies/Home Medications Allergies/Adverse Reactions: Allergies Allergy/AdvReac Type Severity Reaction Status Date / Time hydrocodone Allergy Severe Vomiting Verified 03/12/18 17:35 latex Allergy Severe Rash Verified 03/12/18 17:35 morphine Allergy Severe Unknown Verified 03/12/18 17:35 Reaction Details Sulfa (Sulfonamide Allergy Severe UNK Verified 03/12/18 17:35 Antibiotics) tramadol Allergy Severe Difficulty Verified 03/12/18 17:35 Breathing acetaminophen Allergy UNK Verified 03/12/18 17:35 azithromycin Allergy Unknown Verified 03/12/18 17:35 Reaction Details clarithromycin Allergy UNK Verified 03/12/18 17:35 diphenhydramine Allergy Itching Verified 03/12/18 17:35 [From Benadryl] Penicillins Allergy UNK Verified 03/12/18 17:35 NUTS Allergy Severe Rash Uncoded 03/12/18 17:35 TAPE: SILK OR ADHESIVE Allergy Severe Rash Uncoded 03/12/18 17:35 Home Medications: Home Medications Fexofenadine (NF) [Mary Ann (NF)] 60 mg PO QPM 03/12/18 [History Confirmed ] Fexofenadine (NF) [Mary Ann (NF)] 120 mg PO QAM 03/12/18 [History Confirmed 03/12] PMH/Surg Hx/FS Hx/Imm Hx Respiratory History: Asthma Other History Of: Negative For: HIV, Hepatitis B, Hepatitis C, Anticoagulant Therapy - Surgical History Surgical History: Yes Surgery Procedure, Year, and Place: tonsils; breast reduction; tubal ligation; Gall Bladder, R wrist. LEFT Shoulder. Surgery under her Chin, Cant recall for what. right arm surgery 2013. pins removed from elbow 2014 - Family History Known Family History: Positive: Cardiac Disease, Hypertension, Diabetes, Other - Asthma - Social History Alcohol Use: Rare Alcohol Amount: MAYBE A FEW A YEAR Substance Use Type: None Smoking Status (MU): Never Smoked Tobacco Have You Smoked in the Last Year: No When Did the Patient Quit Smoking/Using Tobacco: 2010 Household Exposure Type: Cigarettes - Immunization History Most Recent Influenza Vaccination: 12/09 Most Recent Tetanus Shot: unsure Hx Tetanus, Diphtheria Vaccination: Yes Vaccination Up to Date: Yes Review of Systems All Other Systems Reviewed And Are Negative: Yes Constitutional: Positive: Fever Skin: Positive: Negative Eyes: Positive: Negative ENT: Positive: Nasal Discharge Respiratory: Positive: Shortness Of Breath, Cough, Other - wheezing Cardiovascular: Positive: Negative Gastrointestinal: Positive: Negative Motor: Positive: Negative Neurovascular: Positive: Negative Musculoskeletal: Positive: Negative Neurological: Positive: Other - deaf Psychological: Positive: Negative Is Patient Immunocompromised?: No Physical Exam Triage Information Reviewed: Yes Appearance: Well-Appearing, No Pain Distress, Well-Nourished Vital Signs: Initial Vital Signs Temp 98.2 F 03/12/18 17:22 Pulse 88 03/12/18 17:22 Resp 16 03/12/18 17:22 BP 158/76 03/12/18 17:22 Pulse Ox 95 03/12/18 17:22 Vital Signs Reviewed: Yes Eye Exam: Normal Eyes: Positive: Conjunctiva Clear ENT: Positive: Pharyngeal erythema, Nasal congestion, Nasal drainage Neck exam: Normal Neck: Positive: Supple Respiratory: Positive: No respiratory distress, Wheezing Cardiovascular: Positive: RRR Musculoskeletal Exam: Normal Musculoskeletal: Positive: Strength Intact, ROM Intact Neurological Exam: Normal Neurological: Positive: Alert, Muscle Tone Normal Psychological Exam: Normal Psychological: Positive: Age Appropriate Behavior Skin Exam: Normal UC Diagnostic Evaluation - Laboratory O2 Sat by Pulse Oximetry: 95 Respiratory Course/Dx - Course Course Of Treatment: We had a senior digital designer during our conversation. And the patient would like to start on an antibiotic and an oral steroid and a cough medication. We prescribed Tessalon Perles Levaquin because the patient is allergic to most antibiotics that she is not allergic to Levaquin. Also started on prednisone by mouth. Plan is to follow-up with her primary care doctor reevaluation sooner if worse. - Differential Dx/Diagnosis Provider Diagnosis: Bronchitis, Cough, Acute asthma flare Discharge - Sign-Out/Discharge Documenting (check all that apply): Patient Departure All imaging exams completed and their final reports reviewed: No Studies - Discharge Plan Condition: Stable Disposition: HOME Prescriptions: Benzonatate CAP* [Tessalon 100 MG CAP*] 100 mg PO TID PRN #20 cap PRN Reason: Cough Levofloxacin TAB* [Levaquin TAB*] 500 mg PO DAILY #7 tab predniSONE TAB* [Deltasone 20 MG TAB*] 40 mg PO DAILY #10 tab Patient Education Materials: Asthma (ED), Acute Bronchitis (ED), Acute Cough ( ED) Referrals: Sapna Sinha MD [Primary Care Provider] - Additional Instructions: FOLLOW UP WITH YOUR DOCTOR IF NOT COMPLETELY IMPROVED. GET RECHECKED FOR ANY WORSENING OF YOUR CONDITION OR QUESTIONS OR CONCERNS. - Billing Disposition and Condition Condition: STABLE Disposition: Home
== END 2018-03-12 18:05 | disposition home or self-care (01) ==
LOC: UCEAST 17:14
DX: J40 Bronchitis, not specified as acute or chronic (principal); R05 Cough; J45.901 Unspecified asthma with (acute) exacerbation; Z88.5 Allergy status to narcotic agent; Z88.2 Allergy status to sulfonamides; Z88.6 Allergy status to analgesic agent; Z88.1 Allergy status to other antibiotic agents; Z91.040 Latex allergy status; Z88.0 Allergy status to penicillin; Z91.018 Allergy to other foods; Z91.048 Other nonmedicinal substance allergy status; Z88.8 Allergy status to other drugs, medicaments and biological substances
CPT/HCPCS: 99212; G0463

== ENCOUNTER 2018-03-18 15:59 | Emergency (ER) | payer MEDICARE, MEDICAID ==
[2018-03-18 16:24] VITALS: BP 154/81
--- NOTE | 2018-03-18 17:22 | UC ---
Complaint Female HPI - HPI Summary HPI Summary: PATIENT HERE COMPLAINING OF 2 WEEKS OF VAGINAL IRRITATION AND ITCHING. DENIES ANY VAGINAL DISCHARGE. DENIES DYSURIA OR FREQUENCY BUT DOES STATE THAT SOMETIMES HER URINE "LOOKS A LITTLE BIT RED". NO FEVER, NAUSEA, BACK PAIN. DENIES ANY HISTORY OF SEXUAL ACTIVITY. STATES SHE HAS BEEN USING VASELINE ON THE IRRITATED AREA PER HER PCP BUT IT IS NOT HELPING. DURING TRIAGE SHE BROUGHT UP AN ITCHY RASH ON HER RIGHT BREAST BUT AT THE TIME OF EXAM UPON QUESTIONING SHE DECIDED TO DEFER THIS TO HER TILE PROFESSIONAL WHO SHE HAS BEEN SEEN REGULARLY. OF NOTE PT IS DEAF AND ALL COMMUNICATION WAS THROUGH WRITING. 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 - History Of Current Complaint Chief Complaint: UCSkin Stated Complaint: PERSONAL AND ITCHING ON BREAST Time Seen by Provider: 03/18/18 16:19 Hx Obtained From: Patient Hx Last Menstrual Period: financial planning assistant Onset/Duration: Gradual Onset, Lasting Weeks, Still Present Timing: Constant Severity Initially: Moderate Severity Currently: Moderate Pain Intensity: 7 Pain Scale Used: 0-10 Numeric Character: Burning Aggravating Factor(s): Nothing Alleviating Factor(s): Nothing Associated Signs And Symptoms: Negative: Fever, Back Pain, Vaginal Bleeding/ Discharge, Vaginal Discharge, Nausea, Vomiting(# Of Episodes =) - Allergies/Home Medications Allergies/Adverse Reactions: Allergies Allergy/AdvReac Type Severity Reaction Status Date / Time hydrocodone Allergy Severe Vomiting Verified 03/18/18 16:25 latex Allergy Severe Rash Verified 03/18/18 16:25 morphine Allergy Severe Unknown Verified 03/18/18 16:25 Reaction Details Sulfa (Sulfonamide Allergy Severe UNK Verified 03/18/18 16:25 Antibiotics) tramadol Allergy Severe Difficulty Verified 03/18/18 16:25 Breathing acetaminophen Allergy UNK Verified 03/18/18 16:25 azithromycin Allergy Unknown Verified 03/18/18 16:25 Reaction Details clarithromycin Allergy UNK Verified 03/18/18 16:25 diphenhydramine Allergy Itching Verified 03/18/18 16:25 [From Benadryl] Penicillins Allergy UNK Verified 03/18/18 16:25 NUTS Allergy Severe Rash Uncoded 03/18/18 16:25 TAPE: SILK OR ADHESIVE Allergy Severe Rash Uncoded 03/18/18 16:25 PMH/Surg Hx/FS Hx/Imm Hx Endocrine History: Diabetes Cardiovascular History: Hypertension Respiratory History: Asthma Other History Of: Negative For: HIV, Hepatitis B, Hepatitis C, Anticoagulant Therapy - Surgical History Surgical History: Yes Surgery Procedure, Year, and Place: tonsils; breast reduction; tubal ligation; Gall Bladder, R wrist. LEFT Shoulder. Surgery under her Chin, Cant recall for what. right arm surgery 2013. pins removed from elbow 2014 - Family History Known Family History: Positive: Cardiac Disease, Hypertension, Diabetes, Other - Asthma - Social History Alcohol Use: Rare Alcohol Amount: MAYBE A FEW A YEAR Substance Use Type: None Smoking Status (MU): Never Smoked Tobacco Have You Smoked in the Last Year: No When Did the Patient Quit Smoking/Using Tobacco: 2010 Household Exposure Type: Cigarettes - Immunization History Most Recent Influenza Vaccination: 12/09 Most Recent Tetanus Shot: unsure Hx Tetanus, Diphtheria Vaccination: Yes Vaccination Up to Date: Yes Review of Systems All Other Systems Reviewed And Are Negative: Yes Constitutional: Positive: Negative Skin: Positive: Rash Respiratory: Positive: Negative Cardiovascular: Positive: Negative Gastrointestinal: Positive: Negative Genitourinary: Positive: Hematuria, Vaginal/Penile Burning, Vaginal/Penile Itching, Vaginal/Penile Pain, Vaginal/Penile Tenderness. Negative: Dysuria, Frequency, Urgency, Vaginal/Penile Discharge, Abnormal Bleeding Physical Exam Triage Information Reviewed: Yes Appearance: Well-Appearing, No Pain Distress, Well-Nourished Vital Signs: Initial Vital Signs Temp 98.2 F 03/18/18 16:13 Pulse 90 03/18/18 16:13 Resp 16 03/18/18 16:13 BP 154/81 03/18/18 16:13 Pulse Ox 99 03/18/18 16:13 Laboratory Tests 03/18/18 17:25 POC Urine Color Yellow POC Urine Clarity Cloudy POC Urine pH 5.0 POC Ur Specif [place] 1.020 POC Urine Protein Negative POC Ur Glucose (UA) 3+ A POC Urine Ketones Negative POC Urine Blood 1+ A POC Urine Nitrite Negative POC Urine Bilirubin Negative POC Urine Urobilinogen 0.2 POC U Leukocyte Esteras 1+ A Vital Signs Reviewed: Yes Eyes: Positive: Conjunctiva Clear ENT: Positive: Hearing grossly normal Neck: Positive: Supple Respiratory: Positive: No respiratory distress, No accessory muscle use Cardiovascular: Positive: Pulses Normal Abdomen Description: Positive: Soft Pelvic Exam: Positive: Other - VAGINAL INTROITUS AND LABIA MINORA BEEFY, RED AND TENDER. NO DISCRETE LESIONS. Musculoskeletal: Positive: No Edema Neurological: Positive: Alert Psychological: Positive: Age Appropriate Behavior Skin: Positive: Rashes - PSORIASIS PLAQUES SCATTERED OVER EXTREMITIES Complaint Female Dx - Course Course Of Treatment: WILL TREAT PATIENT PRESUMPTIVELY FOR YEAST VAGINITIS. SWAB DONE FOR TESTING. GIVEN THE EXTENT OF THE EXTERNAL INFLAMMATION I HAVE ADVISED PATIENT TO USE A LOW DOSE TOPICAL STEROID OINTMENT ONCE DAILY TO HELP CALM DOWN THE IRRITATION. ALSO ENCOURAGED HER TO USE AN OTC MONISTAT PREPARATION TO HELP WITH HER SYMPTOMS. I DISCUSSED WITH HER MY CONCERN ABOUT HER CHRONIC STEROID USE IT MAY BE ADVERSELY AFFECTING HER DIABETES CONTROL WHICH COULD BE PREDISPOSING HER TO DEVELOPING YEAST INFECTIONS AND VAGINITIS. SHE STATES SHE IS FOLLOWING UP WITH HER PCP IN SEVERAL WEEKS AND WILL ADDRESS IT AT THAT TIME. PT'S URINE HAD A LARGE AMOUNT OF GLUCOSE IN IT TODAY. SHE DECLINED A POC GLUCOSE TEST. URINE SENT FOR CULTURE. WE WILL NOTIFY HER IF SHE NEEDS TREATMENT FOR UTI. WHEN I QUESTIONED HER ABOUT HER ITCHY BREAST RASH SHE STATED THAT SHE IS SEEING A TILE PROFESSIONAL AND WOULD PREFER NOT TO ADDRESS THAT ISSUE TODAY WITH US. - Differential Dx/Diagnosis Provider Diagnosis: Vaginitis Discharge - Sign-Out/Discharge Documenting (check all that apply): Patient Departure All imaging exams completed and their final reports reviewed: No Studies - Discharge Plan Condition: Stable Disposition: HOME Prescriptions: Fluconazole 150 MG (NF) [Diflucan 150 mg (NF)] 150 mg PO ONCE #1 tab Hydrocortisone 1% Oint(NF) [Hydrocortisone 1% Oint (NF)] 1 applic TOPICAL DAILY #1 tube Patient Education Materials: Vaginitis (ED) Referrals: Sapna Sinha MD [Primary Care Provider] - 2 Weeks Additional Instructions: KEEP YOUR APPT WITH DR. SINHA IN MARCH. PLEASE DISCUSS WITH HER YOUR CHRONIC PREDNISONE USE AND HOW IT MIGHT BE AFFECTING YOUR SUGAR. I'M WORRIED THAT YOUR DIABETES IS NOT WELL CONTROLLED AND THAT MIGHT BE THE REASON YOU HAVE A VAGINITIS. WE TOOK A SWAB TODAY TO TEST FOR THE MORE COMMON TYPES OF VAGINITIS. YOU HAD ONE DOSE OF DIFLUCAN HERE IN THE CLINIC. IF YOU STILL HAVE SYMPTOMS IN 3 DAYS TAKE A SECOND DOSE. THIS HAS BEEN SENT TO YOUR PHARMACY. USE THE TOPICAL STEROID OINTMENT SPARINGLY ON THE EXTERNAL IRRITATED PARTS TO HELP WITH THE ITCHING AND INFLAMMATION. DO NOT USE IT FOR MORE THAN 2 WEEKS AND DO NOT INSERT IT INSIDE YOUR VAGINA. I WOULD ALSO RECOMMEND YOU USE AN OTC MONISTAT PRODUCT TO TREAT TOPICALLY FOR YEAST. THIS CAN BE SOMEWHAT SOOTHING WELL. YOU HAD A LARGE AMOUNT OF SUGAR AND SOME BACTERIA IN YOUR URINE. WE WILL SEND IT FOR CULTURE AND CALL YOU IF YOU NEED TO BE TREATED FOR A UTI. PLEASE STAY WELL HYDRATED AND WATCH YOUR DIET. GO TO THE ER WITHOUT FAIL IF YOU DEVELOP INCREASED THIRST, EXCESSIVE URINATION, ABDOMINAL PAIN, FEVER, NAUSEA OR ANY OTHER CONCERNING SYMPTOMS. - Billing Disposition and Condition Condition: STABLE Disposition: Home
[2018-03-18] MEDS ORDERED: Fluconazole 100 MG TAB* TAB PO ONE (17:46)
[2018-03-18] MEDS ORDERED: Hydrocortisone 1% CREAM* 30 GM TUBE TOPICAL ONE (17:47)
== END 2018-03-18 18:10 | disposition home or self-care (01) ==
LOC: UCEAST 15:59
DX: N76.0 Acute vaginitis (principal); E11.9 Type 2 diabetes mellitus without complications; I10 Essential (primary) hypertension; J45.909 Unspecified asthma, uncomplicated; Z88.5 Allergy status to narcotic agent; Z88.2 Allergy status to sulfonamides; Z88.6 Allergy status to analgesic agent; Z88.1 Allergy status to other antibiotic agents; Z88.0 Allergy status to penicillin; Z91.040 Latex allergy status; Z91.018 Allergy to other foods; Z91.048 Other nonmedicinal substance allergy status; Z88.8 Allergy status to other drugs, medicaments and biological substances
CPT/HCPCS: 81003; 87086; 87480; 87510; 99213; A9270-GY; G0463

== ENCOUNTER 2018-04-08 15:38 | Emergency (ER) | payer MEDICARE, MEDICAID ==
[2018-04-08 16:07] VITALS: BP 149/69
--- NOTE | 2018-04-08 16:16 | UC ---
Respiratory Complaint HPI - HPI Summary HPI Summary: The patient is a 57-year-old female with a history of asthma who presents here complaining of worsening of her asthma. She denies any fever or chills. She also has some very mild bilateral ear pain which seems to worsen when she chews. His had no nausea vomiting or diarrhea. The patient is deaf. The history is been obtained by writing on a note pad. The mobile home set up person iPad is not functioning. - History of Current Complaint Chief Complaint: UCRespiratory Stated Complaint: EAR PAIN,CHEST PAIN Time Seen by Provider: 04/08/18 16:01 Hx Obtained From: Patient Hx Last Menstrual Period: post Onset/Duration: Gradual Onset, Lasting Days Timing: Constant Severity Initially: Mild Severity Currently: Mild Pain Intensity: 3 Pain Scale Used: 0-10 Numeric Character: Cough: Nonproductive Aggravating Factors: Exertion Alleviating Factors: Bronchodilator Associated Signs And Symptoms: Negative: Dyspnea, Fever, Chills, Pleuritic Chest Pain, Wheezing, Hemoptysis, Dizziness, Calf Pain, Calf Swelling, Edema, URI, Nasal Congestion, Hoarseness, Sinus Discomfort - Allergies/Home Medications Allergies/Adverse Reactions: Allergies Allergy/AdvReac Type Severity Reaction Status Date / Time hydrocodone Allergy Severe Vomiting Verified 04/08/18 16:09 latex Allergy Severe Rash Verified 04/08/18 16:09 morphine Allergy Severe Unknown Verified 04/08/18 16:09 Reaction Details Sulfa (Sulfonamide Allergy Severe UNK Verified 04/08/18 16:09 Antibiotics) tramadol Allergy Severe Difficulty Verified 04/08/18 16:09 Breathing acetaminophen Allergy UNK Verified 04/08/18 16:09 azithromycin Allergy Unknown Verified 04/08/18 16:09 Reaction Details clarithromycin Allergy UNK Verified 04/08/18 16:09 diphenhydramine Allergy Itching Verified 04/08/18 16:09 [From Benadryl] Penicillins Allergy UNK Verified 04/08/18 16:09 NUTS Allergy Severe Rash Uncoded 04/08/18 16:09 TAPE: SILK OR ADHESIVE Allergy Severe Rash Uncoded 04/08/18 16:09 PMH/Surg Hx/FS Hx/Imm Hx Respiratory History: Asthma, Bronchitis Other History Of: Negative For: HIV, Hepatitis B, Hepatitis C, Anticoagulant Therapy - Surgical History Surgical History: Yes Surgery Procedure, Year, and Place: tonsils; breast reduction; tubal ligation; Gall Bladder, R wrist. LEFT Shoulder. Surgery under her Chin, Cant recall for what. right arm surgery 2013. pins removed from elbow 2014 - Family History Known Family History: Positive: Cardiac Disease, Hypertension, Diabetes, Other - Asthma - Social History Alcohol Use: None Alcohol Amount: MAYBE A FEW A YEAR Substance Use Type: None Smoking Status (MU): Never Smoked Tobacco Have You Smoked in the Last Year: No When Did the Patient Quit Smoking/Using Tobacco: 2010 Household Exposure Type: Cigarettes - Immunization History Most Recent Influenza Vaccination: 12/09 Most Recent Tetanus Shot: unsure Hx Tetanus, Diphtheria Vaccination: Yes Vaccination Up to Date: Yes Review of Systems All Other Systems Reviewed And Are Negative: Yes Constitutional: Positive: Negative Skin: Positive: Negative Eyes: Positive: Negative ENT: Positive: Ear Ache Respiratory: Positive: Cough Cardiovascular: Positive: Negative Gastrointestinal: Positive: Negative Genitourinary: Positive: Negative Motor: Positive: Negative Neurovascular: Positive: Negative Musculoskeletal: Positive: Negative Neurological: Positive: Negative Psychological: Positive: Negative Physical Exam Triage Information Reviewed: Yes Appearance: Well-Appearing, No Pain Distress, Well-Nourished Vital Signs: Initial Vital Signs Temp 98 F 04/08/18 15:56 Pulse 77 04/08/18 15:56 Resp 16 04/08/18 15:56 BP 149/69 04/08/18 15:56 Pulse Ox 100 04/08/18 15:56 Vital Signs Reviewed: Yes Eyes: Positive: Conjunctiva Clear ENT: Positive: TMs normal. Negative: Hearing grossly normal - deaf, Nasal congestion, Nasal drainage, Tonsillar swelling, Tonsillar exudate, Trismus, Muffled voice, Hoarse voice, Uvula midline Neck: Positive: Supple, Nontender, No Lymphadenopathy Respiratory: Positive: Lungs clear, Normal breath sounds, No respiratory distress, No accessory muscle use Cardiovascular: Positive: RRR, No Murmur Musculoskeletal: Positive: ROM Intact, No Edema Neurological: Positive: Alert Psychological Exam: Normal Skin Exam: Normal UC Diagnostic Evaluation - Laboratory O2 Sat by Pulse Oximetry: 100 - normal/not hypoxic - Radiology Radiology Interpretation Completed By: ED Physician Summary of Radiographic Findings: poor insp effort/NAD Respiratory Course/Dx - Differential Dx/Diagnosis Provider Diagnosis: Bronchospasm, Otalgia of both ears Discharge - Sign-Out/Discharge Documenting (check all that apply): Patient Departure All imaging exams completed and their final reports reviewed: Yes - Discharge Plan Condition: Stable Disposition: HOME Prescriptions: predniSONE [Deltasone 20 MG TAB] 40 mg PO DAILY #8 tab Patient Education Materials: Bronchospasm (ED) Print Language: SAUDI ARABIAN Referrals: Sapna Sinha MD [Primary Care Provider] - 4 Days (if not better) - Billing Disposition and Condition Condition: STABLE Disposition: Home
[2018-04-08] MEDS ORDERED: predniSONE TAB* 20 MG PO ONE (17:10)
== END 2018-04-08 17:25 | disposition home or self-care (01) ==
LOC: UCEAST 15:38
DX: J98.01 Acute bronchospasm (principal); H92.03 Otalgia, bilateral; Z88.5 Allergy status to narcotic agent; Z88.1 Allergy status to other antibiotic agents; Z88.0 Allergy status to penicillin; Z88.6 Allergy status to analgesic agent; Z88.8 Allergy status to other drugs, medicaments and biological substances
CPT/HCPCS: 71046; 99212; G0463; J7512

== ENCOUNTER 2018-05-01 11:44 | Emergency (ER) | payer MEDICARE, MEDICAID ==
[2018-05-01 15:21] VITALS: BP 158/97
--- NOTE | 2018-05-01 16:35 | UC ---
Respiratory Complaint HPI - HPI Summary HPI Summary: 2 DAYS OF HEADACHE, COUGH, SNEEZING, RUNNY NOSE. NOW HAS LEFT EAR PAIN. NO FEVER OR BODY ACHES. 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 Negative: Dyspnea, Fever, Chills, Wheezing - Allergies/Home Medications Allergies/Adverse Reactions: Allergies Allergy/AdvReac Type Severity Reaction Status Date / Time hydrocodone Allergy Severe Vomiting Verified 05/01/18 15:22 latex Allergy Severe Rash Verified 05/01/18 15:22 morphine Allergy Severe Unknown Verified 05/01/18 15:22 Reaction Details Sulfa (Sulfonamide Allergy Severe UNK Verified 05/01/18 15:22 Antibiotics) tramadol Allergy Severe Difficulty Verified 05/01/18 15:22 Breathing acetaminophen Allergy UNK Verified 05/01/18 15:22 azithromycin Allergy Unknown Verified 05/01/18 15:22 Reaction Details clarithromycin Allergy UNK Verified 05/01/18 15:22 diphenhydramine Allergy Itching Verified 05/01/18 15:22 [From Benadryl] Penicillins Allergy UNK Verified 05/01/18 15:22 NUTS Allergy Severe Rash Uncoded 04/22/18 18:42 TAPE: SILK OR ADHESIVE Allergy Severe Rash Uncoded 04/22/18 18:42 PMH/Surg Hx/FS Hx/Imm Hx Cardiovascular History: Hypertension Respiratory History: Asthma Other History Of: Negative For: HIV, Hepatitis B, Hepatitis C, Anticoagulant Therapy - Surgical History Surgical History: Yes Surgery Procedure, Year, and Place: tonsils; breast reduction; tubal ligation; Gall Bladder, R wrist. LEFT Shoulder. Surgery under her Chin, Cant recall for what. right arm surgery 2013. pins removed from elbow 2014 - Family History Known Family History: Positive: Cardiac Disease, Hypertension, Diabetes, Other - Asthma - Social History Alcohol Use: None Alcohol Amount: MAYBE A FEW A YEAR Substance Use Type: None Smoking Status (MU): Never Smoked Tobacco Have You Smoked in the Last Year: No When Did the Patient Quit Smoking/Using Tobacco: 2010 Household Exposure Type: Cigarettes - Immunization History Most Recent Influenza Vaccination: 12/09 Most Recent Tetanus Shot: unsure Hx Tetanus, Diphtheria Vaccination: Yes Vaccination Up to Date: Yes Review of Systems All Other Systems Reviewed And Are Negative: Yes Constitutional: Positive: Fatigue ENT: Positive: Ear Ache Respiratory: Positive: Cough, Other - SNEEZING Cardiovascular: Positive: Negative Gastrointestinal: Positive: Negative Neurological: Positive: Headache Physical Exam Triage Information Reviewed: Yes Appearance: Well-Appearing, No Pain Distress, Well-Nourished Vital Signs: Initial Vital Signs Temp 98.8 F 05/01/18 15:15 Pulse 67 05/01/18 15:15 Resp 18 05/01/18 15:15 BP 158/97 05/01/18 15:15 Pulse Ox 98 05/01/18 15:15 Vital Signs Reviewed: Yes Eyes: Positive: Conjunctiva Clear ENT: Positive: Hearing grossly normal, Pharynx normal, TMs normal Neck: Positive: Supple, Nontender, No Lymphadenopathy Respiratory Exam: Normal Cardiovascular Exam: Normal Abdomen Description: Positive: Soft Musculoskeletal: Positive: No Edema Neurological: Positive: Alert Psychological: Positive: Age Appropriate Behavior Skin: Negative: Rashes UC Diagnostic Evaluation - Laboratory O2 Sat by Pulse Oximetry: 98 Respiratory Course/Dx - Differential Dx/Diagnosis Provider Diagnosis: Acute URI Discharge - Sign-Out/Discharge Documenting (check all that apply): Patient Departure All imaging exams completed and their final reports reviewed: No Studies - Discharge Plan Condition: Stable Disposition: HOME Patient Education Materials: Upper Respiratory Infection (ED) Referrals: Sapna Sinha MD [Primary Care Provider] - If Needed Additional Instructions: YOUR SYMPTOMS ARE LIKELY VIRALLY MEDIATED AND SHOULD RESOLVE ON THEIR OWN WITH TIME. NO INDICATION FOR ANTIBIOTICS AT PRESENT. REST, HYDRATE, OTC MEDS NEEDED. SEEK FOLLOW-UP IF YOU ARE NOT IMPROVING OVER THE NEXT 1-2 WEEKS. USE OTC AFRIN FOR NASAL CONGESTION. 2 SPRAYS IN EACH NOSTRIL TWICE DAILY NEEDED. DO NOT USE FOR MORE THAN 3-4 DAYS IN A ROW TO PREVENT DEVELOPING REBOUND CONGESTION. IF YOU ONLY USE IT AT NIGHT YOU CAN STRETCH IT TO 5 CONSECUTIVE DAYS. - Billing Disposition and Condition Condition: STABLE Disposition: Home
== END 2018-05-01 16:32 | disposition home or self-care (01) ==
LOC: UCEAST 11:44
DX: J06.9 Acute upper respiratory infection, unspecified (principal); I10 Essential (primary) hypertension; J45.909 Unspecified asthma, uncomplicated; Z88.1 Allergy status to other antibiotic agents; Z91.040 Latex allergy status; Z88.5 Allergy status to narcotic agent; Z91.018 Allergy to other foods; Z88.0 Allergy status to penicillin; Z88.2 Allergy status to sulfonamides; Z88.8 Allergy status to other drugs, medicaments and biological substances; Z91.09 Other allergy status, other than to drugs and biological substances; Z82.5 Family history of asthma and other chronic lower respiratory diseases; Z87.891 Personal history of nicotine dependence
CPT/HCPCS: 99212; G0463

== ENCOUNTER 2018-06-16 20:25 | Emergency (ER) | payer MEDICARE, MEDICAID ==
--- NOTE | 2018-06-16 21:07 | UC ---
Respiratory Complaint HPI - HPI Summary HPI Summary: Patient is complaining of difficulty breathing. she uses a CPAP at home at bedtime. has had cough and sore throat. also her perineum is dry - History of Current Complaint Stated Complaint: URI Time Seen by Provider: 06/16/18 20:52 Hx Obtained From: Patient Hx Last Menstrual Period: post ?: No Onset/Duration: Sudden Onset, Lasting Days Timing: Constant Severity Initially: Mild Severity Currently: Mild Character: Cough: Nonproductive Aggravating Factors: Deep Breaths Associated Signs And Symptoms: Positive: URI, Sinus Discomfort - Allergies/Home Medications Allergies/Adverse Reactions: Allergies Allergy/AdvReac Type Severity Reaction Status Date / Time hydrocodone Allergy Severe Vomiting Verified 06/16/18 21:22 latex Allergy Severe Rash Verified 06/16/18 21:22 morphine Allergy Severe Unknown Verified 06/16/18 21:22 Reaction Details Sulfa (Sulfonamide Allergy Severe UNK Verified 06/16/18 21:22 Antibiotics) tramadol Allergy Severe Difficulty Verified 06/16/18 21:22 Breathing acetaminophen Allergy UNK Verified 06/16/18 21:22 azithromycin Allergy Unknown Verified 06/16/18 21:22 Reaction Details clarithromycin Allergy UNK Verified 06/16/18 21:22 diphenhydramine Allergy Itching Verified 06/16/18 21:22 [From Benadryl] Penicillins Allergy UNK Verified 06/16/18 21:22 NUTS Allergy Severe Rash Uncoded 06/16/18 21:22 TAPE: SILK OR ADHESIVE Allergy Severe Rash Uncoded 06/16/18 21:22 PMH/Surg Hx/FS Hx/Imm Hx Previously Healthy: Yes Other History Of: Negative For: HIV, Hepatitis B, Hepatitis C, Anticoagulant Therapy - Surgical History Surgical History: Yes Surgery Procedure, Year, and Place: tonsils; breast reduction; tubal ligation; Gall Bladder, R wrist. LEFT Shoulder. Surgery under her Chin, Cant recall for what. right arm surgery 2013. pins removed from elbow 2014 - Family History Known Family History: Positive: Cardiac Disease, Hypertension, Diabetes, Other - Asthma - Social History Alcohol Use: None Alcohol Amount: MAYBE A FEW A YEAR Substance Use Type: None Smoking Status (MU): Never Smoked Tobacco Have You Smoked in the Last Year: No When Did the Patient Quit Smoking/Using Tobacco: 2010 Household Exposure Type: Cigarettes - Immunization History Most Recent Influenza Vaccination: 12/09 Most Recent Tetanus Shot: unsure Hx Tetanus, Diphtheria Vaccination: Yes Vaccination Up to Date: Yes Review of Systems All Other Systems Reviewed And Are Negative: Yes Constitutional: Positive: Negative Skin: Positive: Negative Eyes: Positive: Negative ENT: Positive: Sore Throat Respiratory: Positive: Cough Cardiovascular: Positive: Negative Gastrointestinal: Positive: Negative Genitourinary: Positive: Negative Motor: Positive: Negative Neurovascular: Positive: Negative Musculoskeletal: Positive: Negative Neurological: Positive: Negative Psychological: Positive: Negative Is Patient Immunocompromised?: No Physical Exam Triage Information Reviewed: Yes Appearance: Well-Appearing, No Pain Distress, Ill-Appearing Vital Signs Reviewed: Yes Eye Exam: Normal ENT: Positive: Pharyngeal erythema - wiht PND, TMs normal Dental Exam: Normal Neck exam: Normal Neck: Positive: Supple, Nontender, No Lymphadenopathy Respiratory Exam: Normal Respiratory: Positive: Chest non-tender, Lungs clear, Normal breath sounds Cardiovascular Exam: Normal Cardiovascular: Positive: RRR, No Murmur, Pulses Normal Abdominal Exam: Normal Abdomen Description: Positive: Nontender, No Organomegaly, Soft Bowel Sounds: Positive: Present Musculoskeletal Exam: Normal Musculoskeletal: Positive: Strength Intact, ROM Intact, No Edema Neurological Exam: Normal Psychological Exam: Normal Skin Exam: Normal Respiratory Course/Dx - Course Course Of Treatment: hx obtained, exam performed, meds reviewed, patient was able to communicate by writing on paper, as the communication device was not working. recommend coconut oil or Replens moisturizer otc for vaginal dryness. - Differential Dx/Diagnosis Differential Diagnosis/HQI/PQRI: Asthma, Bronchitis, Influenza, Laryngitis, VRE , Sinusitis Provider Diagnosis: Rhinosinusitis, Perineal irritation in female, Hypertension Discharge - Sign-Out/Discharge Documenting (check all that apply): Patient Departure All imaging exams completed and their final reports reviewed: No Studies - Discharge Plan Condition: Stable Disposition: HOME Patient Education Materials: Rhinosinusitis (ED) Referrals: Sapna Sinha MD [Primary Care Provider] - Additional Instructions: 1. for the vaginal dryness, coconut oil or Replens vaginal moisturizer cream you can get over the counter. 2. For the sinus congestion and cough, Tesselon pearls and salt water gargles. 3. Follow up as necessary your Blood pressure was elevated again today. It was 177/75. Please follow up with Dr. Sinha at the next appointment to reevaluate your medications. - Billing Disposition and Condition Condition: STABLE Disposition: Home
[2018-06-16 21:18] VITALS: BP 175/77
== END 2018-06-16 21:50 | disposition home or self-care (01) ==
LOC: UCEAST 20:25
DX: J32.9 Chronic sinusitis, unspecified (principal); L29.3 Anogenital pruritus, unspecified; I10 Essential (primary) hypertension; Z88.5 Allergy status to narcotic agent; Z88.2 Allergy status to sulfonamides; Z88.8 Allergy status to other drugs, medicaments and biological substances; Z88.1 Allergy status to other antibiotic agents; Z91.018 Allergy to other foods; Z91.09 Other allergy status, other than to drugs and biological substances; Z91.040 Latex allergy status
CPT/HCPCS: 99212; G0463

== ENCOUNTER 2018-06-26 14:25 | Emergency (ER) | payer MEDICARE, MEDICAID ==
[2018-06-26 15:52] VITALS: BP 135/80
--- NOTE | 2018-06-26 21:50 | UC ---
Respiratory Complaint HPI - HPI Summary HPI Summary: PATIENT HAS A HISTORY OF ASTHMA. STATES THAT SHE HAS HAD COUGHING AND SNEEZING AND RUNNY NOSE FOR SOME TIME NOW. IS ALSO COMPLAINING OF SOME RIGHT EAR DISCOMFORT. AFTER QUESTIONING WITH THE ASSISTANCE OF AN SKY CAP IT IS DISCOVERED THAT THE PATIENT IS HERE DUE TO INTENSE FRUSTRATION WITH HER INABILITY TO BE SCHEDULED FOR HER SLEEP STUDY THROUGH HER PRIMARY CARE PROVIDER. SHE WAS GIVEN A NEW ASTHMA INHALER WHICH IS NOT COVERED BY HER INSURANCE AND ALSO DESCRIBES WHAT SOUNDS LIKE AN INCENTIVE SPIROMETER - STATING SHE WAS SUPPOSED TO USE THIS TWICE DAILY TO HELP HER LUNG FUNCTION BUT IS WAITING FOR INSURANCE TO APPROVE THIS WELL. SHE IS VERY CONCERNED ABOUT HER LUNGS AND WONDERS IF A CHEST X-RAY IS INDICATED. - History of Current Complaint Chief Complaint: UCRespiratory Stated Complaint: SINUS Time Seen by Provider: 06/26/18 15:28 Hx Obtained From: Patient Hx Last Menstrual Period: post Onset/Duration: Gradual Onset, Lasting Weeks, Still Present Timing: Constant Severity Initially: Moderate Severity Currently: Moderate Pain Intensity: 0 Pain Scale Used: 0-10 Numeric Character: Cough: Nonproductive Aggravating Factors: Nothing Alleviating Factors: Nothing Associated Signs And Symptoms: Negative: Dyspnea, Fever, Chills, Wheezing - Allergies/Home Medications Allergies/Adverse Reactions: Allergies Allergy/AdvReac Type Severity Reaction Status Date / Time hydrocodone Allergy Severe Vomiting Verified 06/16/18 21:22 latex Allergy Severe Rash Verified 06/16/18 21:22 morphine Allergy Severe Unknown Verified 06/16/18 21:22 Reaction Details Sulfa (Sulfonamide Allergy Severe UNK Verified 06/16/18 21:22 Antibiotics) tramadol Allergy Severe Difficulty Verified 06/16/18 21:22 Breathing acetaminophen Allergy UNK Verified 06/16/18 21:22 azithromycin Allergy Unknown Verified 06/16/18 21:22 Reaction Details clarithromycin Allergy UNK Verified 06/16/18 21:22 diphenhydramine Allergy Itching Verified 06/16/18 21:22 [From Benadryl] Penicillins Allergy UNK Verified 06/16/18 21:22 NUTS Allergy Severe Rash Uncoded 06/16/18 21:22 TAPE: SILK OR ADHESIVE Allergy Severe Rash Uncoded 06/16/18 21:22 Home Medications: Home Medications Albuterol HFA INHALER* [Ventolin HFA Inhaler*] 2 puff PO Q4HR PRN 06/26/18 [ History Confirmed 06/26/18] Docusate Sodium [Colace] 100 mg PO BID 06/26/18 [History Confirmed 06/26/18] Estradiol [Imvexxy] 10 mcg VAGINAL WEEKLY 06/26/18 [History Confirmed 06/26/18] Nateglinide(NF) [Starlix(NF)] 120 mg PO TID 06/26/18 [History Confirmed 06/26/18 ] Pioglitazone TAB* [Actos TAB*] 30 mg PO DAILY 06/26/18 [History Confirmed ] Polyethylene Glycol 3350* [Miralax*] 1 packet PO DAILY 06/26/18 [History Confirmed 06/26/18] Rizatriptan Benzoate [Rizatriptan] 10 mg PO DAILY PRN 06/26/18 [History Confirmed 06/26/18] ValACYclovir (*) [Valtrex 500 mg (*)] 500 mg PO TID 06/26/18 [History Confirmed 06/26/18] PMH/Surg Hx/FS Hx/Imm Hx - Additional Past Medical History Additional PMH: DEAF Cardiovascular History: Hypertension Respiratory History: Asthma Other History Of: Negative For: HIV, Hepatitis B, Hepatitis C, Anticoagulant Therapy - Surgical History Surgical History: Yes Surgery Procedure, Year, and Place: tonsils; breast reduction; tubal ligation; Gall Bladder, R wrist. LEFT Shoulder. Surgery under her Chin, Cant recall for what. right arm surgery 2013. pins removed from elbow 2014 - Family History Known Family History: Positive: Cardiac Disease, Hypertension, Diabetes, Other - Asthma - Social History Alcohol Use: None Alcohol Amount: MAYBE A FEW A YEAR Substance Use Type: None Smoking Status (MU): Never Smoked Tobacco Have You Smoked in the Last Year: No When Did the Patient Quit Smoking/Using Tobacco: 2010 Household Exposure Type: Cigarettes - Immunization History Most Recent Influenza Vaccination: 12/09 Most Recent Tetanus Shot: unsure Hx Tetanus, Diphtheria Vaccination: Yes Vaccination Up to Date: Yes Review of Systems All Other Systems Reviewed And Are Negative: Yes Constitutional: Positive: Negative ENT: Positive: Ear Ache, Nasal Discharge Respiratory: Positive: Cough Cardiovascular: Positive: Negative Gastrointestinal: Positive: Negative Physical Exam Triage Information Reviewed: Yes Appearance: Well-Appearing, No Pain Distress, Well-Nourished Vital Signs: Initial Vital Signs Temp 97.4 F 06/26/18 15:43 Pulse 83 06/26/18 15:43 Resp 18 06/26/18 15:43 BP 135/80 06/26/18 15:43 Pulse Ox 95 06/26/18 15:43 Vital Signs Reviewed: Yes Eyes: Positive: Conjunctiva Clear ENT: Positive: Hearing grossly normal, Pharynx normal, TMs normal - MINIMAL FLUID BEHIND LEFT TM Neck: Positive: Supple, Nontender, No Lymphadenopathy Respiratory Exam: Normal Cardiovascular Exam: Normal Abdomen Description: Positive: Soft Musculoskeletal: Positive: No Edema Neurological: Positive: Alert Psychological: Positive: Age Appropriate Behavior Skin: Negative: Rashes Respiratory Course/Dx - Course Course Of Treatment: PATIENT'S PHARMACY CONTACTED. THE INHALER SHE WAS PRESCRIBED IS ASMANEX. PHARMACIST RECOMMENDED AN ALTERNATIVE - ARNUITY ELLIPTA - WHICH I HAVE PRESCRIBED TODAY. WE ALSO DISPENSED TO HER AN INCENTIVE SPIROMETER AND COACHED HER ON HOW TO USE IT. ADVISED HER TO FOLLOW-UP WITH HER PCPS OFFICE ABOUT HER SLEEP STUDY. IT IS AFTER HOURS WE ARE UNABLE TO CALL ON HER BEHALF. PATIENT 'S LUNGS ARE CLEAR ON EXAM. SHE IS NOT RUNNING FEVER. NO INDICATION FOR CHEST X-RAY TODAY. PATIENT IS AGREEABLE TO THIS. - Differential Dx/Diagnosis Provider Diagnosis: Asthma Discharge - Sign-Out/Discharge Documenting (check all that apply): Patient Departure All imaging exams completed and their final reports reviewed: No Studies - Discharge Plan Condition: Stable Disposition: HOME Prescriptions: Fluticasone Furoate [Arnuity Ellipta] 100 mcg IH DAILY #30 blst.w.[id number] Patient Education Materials: Asthma (ED) Referrals: Sapna Sinha MD [Primary Care Provider] - If Needed Additional Instructions: INCENTIVE SPIROMETER PROVIDED TODAY. THE ASMANEX IS NOT COVERED BY YOUR INSURANCE SO I HAVE SENT A PRESCRIPTION FOR ARNUITY ELLIPTA AN ALTERNATIVE. FOLLOW-UP WITH YOUR PCP FOR FURTHER MANAGEMENT OF YOUR ASTHMA SYMPTOMS AND FOR YOUR SLEEP STUDY. - Billing Disposition and Condition Condition: STABLE Disposition: Home
== END 2018-06-26 17:00 | disposition home or self-care (01) ==
LOC: UCEAST 14:25
DX: J45.909 Unspecified asthma, uncomplicated (principal); H91.90 Unspecified hearing loss, unspecified ear; I10 Essential (primary) hypertension; Z77.22 Contact with and (suspected) exposure to environmental tobacco smoke (acute) (chronic)
CPT/HCPCS: 99212; G0463

== ENCOUNTER 2018-08-07 19:44 | Emergency (ER) | payer MEDICARE, MEDICAID ==
[2018-08-07 20:24] VITALS: BP 137/69
--- NOTE | 2018-08-07 21:25 | UC ---
Head Injury HPI - HPI Summary HPI Summary: PATIENT STRUCK THE BACK OF HER HEAD ON A SHELF AT WORK YESTERDAY. HAD SOME MILD HEADACHE, NAUSEA AND DIZZINESS WHICH IS MUCH IMPROVED TODAY. STATES HER TEETH ARE ACHING IN HER EARS ARE HURTING. ALTHOUGH THIS IS ALSO MUCH BETTER TODAY THAN YESTERDAY. - History Of Current Complaint Chief Complaint: UCHeadInjury Stated Complaint: DENTAL COMPLAINT Time Seen by Provider: 08/07/18 20:41 Hx Obtained From: Patient Hx Last Menstrual Period: post Onset/Duration: Sudden Onset, Lasting Days - 1 DAY, Still Present - BUT BETTER Severity Currently: Moderate Severity Initially: Moderate Pain Intensity: 9 Pain Scale Used: 0-10 Numeric Character: Dull Aggravating Factor(s): Nothing Alleviating Factor(s): Other - SPONTANEOUS IMPROVEMENT Associated Signs And Symptoms: Positive: Nausea. Negative: Confusion, Neck Pain , Vomiting - Allergies/Home Medications Allergies/Adverse Reactions: Allergies Allergy/AdvReac Type Severity Reaction Status Date / Time hydrocodone Allergy Severe Vomiting Verified 08/07/18 20:15 latex Allergy Severe Rash Verified 08/07/18 20:15 morphine Allergy Severe Unknown Verified 08/07/18 20:15 Reaction Details Sulfa (Sulfonamide Allergy Severe UNK Verified 08/07/18 20:15 Antibiotics) tramadol Allergy Severe Difficulty Verified 08/07/18 20:15 Breathing acetaminophen Allergy UNK Verified 08/07/18 20:15 azithromycin Allergy Unknown Verified 08/07/18 20:15 Reaction Details clarithromycin Allergy UNK Verified 08/07/18 20:15 diphenhydramine Allergy Itching Verified 08/07/18 20:15 [From Benadryl] Penicillins Allergy UNK Verified 08/07/18 20:15 NUTS Allergy Severe Rash Uncoded 06/16/18 21:22 TAPE: SILK OR ADHESIVE Allergy Severe Rash Uncoded 06/16/18 21:22 PMH/Surg Hx/FS Hx/Imm Hx Endocrine History: Diabetes Cardiovascular History: Hypertension Respiratory History: Asthma Other History Of: Negative For: HIV, Hepatitis B, Hepatitis C, Anticoagulant Therapy - Surgical History Surgical History: Yes Surgery Procedure, Year, and Place: tonsils; breast reduction; tubal ligation; Gall Bladder, R wrist. LEFT Shoulder. Surgery under her Chin, Cant recall for what. right arm surgery 2013. pins removed from elbow 2014 - Family History Known Family History: Positive: Cardiac Disease, Hypertension, Diabetes, Other - Asthma - Social History Alcohol Use: None Alcohol Amount: MAYBE A FEW A YEAR Substance Use Type: None Smoking Status (MU): Never Smoked Tobacco Have You Smoked in the Last Year: No When Did the Patient Quit Smoking/Using Tobacco: 2010 Household Exposure Type: Cigarettes - Immunization History Most Recent Influenza Vaccination: 12/09 Most Recent Tetanus Shot: unsure Hx Tetanus, Diphtheria Vaccination: Yes Vaccination Up to Date: Yes Review of Systems All Other Systems Reviewed And Are Negative: Yes Constitutional: Positive: Negative Skin: Positive: Negative Eyes: Positive: Negative Respiratory: Positive: Negative Cardiovascular: Positive: Negative Gastrointestinal: Positive: Nausea Neurological: Positive: Headache Physical Exam Triage Information Reviewed: Yes Appearance: Well-Appearing, No Pain Distress, Well-Nourished Vital Signs: Initial Vital Signs Temp 98.1 F 08/07/18 20:08 Pulse 78 08/07/18 20:08 Resp 18 08/07/18 20:08 BP 137/69 08/07/18 20:08 Pulse Ox 98 08/07/18 20:08 Vital Signs Reviewed: Yes Eyes: Positive: Conjunctiva Clear, Other: - PERRL, EOMI ENT: Positive: Hearing grossly normal, Pharynx normal, TMs normal Neck: Positive: Supple, Nontender, No Lymphadenopathy Respiratory: Positive: No respiratory distress, No accessory muscle use Cardiovascular: Positive: Pulses Normal Abdomen Description: Positive: Soft Musculoskeletal: Positive: No Edema Neurological: Positive: Alert, Other: - CN II-XII GROSSLY INTACT BILATERALLY. RAPID ALTERNATING MOVEMENTS INTACT. NEG PRONATOR DRIFT. NEG ROMBERG. 5/5 STRENGTH. HEEL TO WOODWARD INTACT BILATERALLY. TANDEM GAIT INTACT. FINGER TO NOSE INTACT. Psychological: Positive: Age Appropriate Behavior Skin: Positive: Other - NO BRUISING OR SWELLING OF SCALP. NO RACCOON EYES OR TAYLOR SIGN. Negative: Rashes Head Injury Course/Dx - Course Course Of Treatment: PATIENT SUSTAINED A MINOR HEAD INJURY AT WORK YESTERDAY. ALREADY FEELS BETTER TODAY WITH RESPECT ALL HER SYMPTOMS. OTC MEDICATIONS NEEDED FOR ANALGESIA. PATIENT DECLINES ANY NOTES FOR TIME OFF WORK STATING THAT SHE HAS TOMORROW OFF ALREADY AND CAN DO LIGHT DUTIES AT WORK WITHOUT DIFFICULTY. NO INDICATION FOR ANY NEUROIMAGING TODAY. ADVISED TO GO TO THE ER WITHOUT FAIL IF HER SYMPTOMS WORSEN. ON AN UNRELATED NOTE PATIENT HAS LOST A SIGNIFICANT AMOUNT OF WEIGHT IN THE PAST COUPLE OF MONTHS DUE TO A CHANGE IN DIET AND HER RECENT EMPLOYMENT AT [employer] WHERE SHE SPENDS A LOT OF TIME WALKING AROUND THE STORE. SHE SEEMS TO BE DOING VERY WELL WITH RESPECT TO HER OVERALL HEALTH AND STATES THAT SHE HAS BEEN ABLE TO RAIL BACK ON HER DIABETES MEDICATION AND HER BLOOD PRESSURE HAS ALSO SIGNIFICANTLY IMPROVED SINCE HER WEIGHT LOSS. PATIENT HAS A FOLLOW-UP APPOINTMENT WITH HER PCP NEXT MONTH. I HAVE ENCOURAGED HER TO CONTINUE WITH HER EXERCISE AND WEIGHT LOSS GOALS. - Differential Dx/Diagnosis Provider Diagnosis: Head injury, acute, without loss of consciousness Discharge - Sign-Out/Discharge Documenting (check all that apply): Patient Departure All imaging exams completed and their final reports reviewed: No Studies - Discharge Plan Condition: Stable Disposition: HOME Patient Education Materials: Head Injury (ED) Referrals: Sapna Sinha MD [Primary Care Provider] - If Needed Additional Instructions: YOU ARE ALREADY FEELING BETTER FROM YOUR HEAD INJURY. YOUR SYMPTOMS WILL LIKELY CONTINUE TO IMPROVE OVER THE NEXT FEW DAYS. NO INDICATION FOR HEAD IMAGING TODAY. OKAY FOR TYLENOL/IBUPROFEN FOR HEADACHE. LIMIT SCREEN TIME AND AVOID ACTIVITIES THAT COULD RESULT IN ADDITIONAL HEAD INJURY. YOU NEED BOTH PHYSICAL AND COGNITIVE REST TO EXPEDITE RECOVERY. FOLLOW- UP WITH PCP IF SYMPTOMS ARE PERSISTENT AFTER 1 WEEK. GO TO THE ED WITHOUT FAIL IF YOU DEVELOP UNEQUAL PUPILS, VISUAL DISTURBANCE, GAIT INSTABILITY, SPEECH DIFFICULTY, NAUSEA/VOMITING, WORSENING HEADACHE, DIZZINESS, CONFUSION, WEAKNESS OR ANY OTHER CONCERNING SYMPTOMS. YOU NEED TO SEE YOUR DENTIST ABOUT YOUR TEETH. THEY NEED ATTENTION. - Billing Disposition and Condition Condition: STABLE Disposition: Home
== END 2018-08-07 21:30 | disposition home or self-care (01) ==
LOC: UCEAST 19:44
DX: S09.90XA Unspecified injury of head, initial encounter (principal); R11.0 Nausea; R42 Dizziness and giddiness; E11.9 Type 2 diabetes mellitus without complications; I10 Essential (primary) hypertension; J45.909 Unspecified asthma, uncomplicated; Z88.1 Allergy status to other antibiotic agents; Z88.8 Allergy status to other drugs, medicaments and biological substances; Z88.0 Allergy status to penicillin; Z91.09 Other allergy status, other than to drugs and biological substances; Z91.018 Allergy to other foods; Z88.2 Allergy status to sulfonamides; Z91.040 Latex allergy status; Z88.5 Allergy status to narcotic agent
CPT/HCPCS: 99212; G0463

== ENCOUNTER 2018-09-15 19:34 | Emergency (ER) | payer MEDICARE, MEDICAID ==
[2018-09-15 20:30] VITALS: BP 144/82
[2018-09-15] MEDS ORDERED: predniSONE TAB* 20 MG PO ONE (21:04)
--- NOTE | 2018-09-15 21:32 | UC ---
Skin Complaint HPI - HPI Summary HPI Summary: ONSET OF A DRY, ITCHY RASH IN THE BACKS OF BOTH HER HANDS TODAY. DENIES ANY NEW EXPOSURES THAT SHE IS AWARE OF. NO FEVER. - History of Current Complaint Chief Complaint: UCSkin Time Seen by Provider: 09/15/18 20:08 Stated Complaint: RASH AND ITCHINESS IN EARS Hx Obtained From: Patient Hx Last Menstrual Period: post Onset/Duration: Gradual Onset, Lasting Hours, Still Present Timing: Constant Onset Severity: Mild Current Severity: Mild Pain Intensity: 1 Pain Scale Used: 0-10 Numeric Character: Pruritus Aggravating Factor(s): Touch Alleviating Factor(s): Nothing Associated Signs & Symptoms: Positive: Rash - Allergy/Home Medications Allergies/Adverse Reactions: Allergies Allergy/AdvReac Type Severity Reaction Status Date / Time hydrocodone Allergy Severe Vomiting Verified 09/15/18 20:15 latex Allergy Severe Rash Verified 09/15/18 20:15 morphine Allergy Severe Unknown Verified 09/15/18 20:15 Reaction Details Sulfa (Sulfonamide Allergy Severe UNK Verified 09/15/18 20:15 Antibiotics) tramadol Allergy Severe Difficulty Verified 09/15/18 20:15 Breathing acetaminophen Allergy UNK Verified 09/15/18 20:15 azithromycin Allergy Unknown Verified 09/15/18 20:15 Reaction Details clarithromycin Allergy UNK Verified 09/15/18 20:15 diphenhydramine Allergy Itching Verified 09/15/18 20:15 [From Benadryl] Penicillins Allergy UNK Verified 09/15/18 20:15 NUTS Allergy Severe Rash Uncoded 09/15/18 20:15 TAPE: SILK OR ADHESIVE Allergy Severe Rash Uncoded 09/15/18 20:15 PMH/Surg Hx/FS Hx/Imm Hx - Additional Past Medical History Additional PMH: HEARING IMPAIRED Cardiovascular History: Hypertension Respiratory History: Asthma GI/ History: Gastroesophageal Reflux Other History Of: Negative For: HIV, Hepatitis B, Hepatitis C, Anticoagulant Therapy - Surgical History Surgical History: Yes Surgery Procedure, Year, and Place: tonsils; breast reduction; tubal ligation; Gall Bladder, R wrist. LEFT Shoulder. Surgery under her Chin, Cant recall for what. right arm surgery 2013. pins removed from elbow 2014 - Family History Known Family History: Positive: Cardiac Disease, Hypertension, Diabetes, Other - Asthma - Social History Alcohol Use: None Alcohol Amount: MAYBE A FEW A YEAR Substance Use Type: None Smoking Status (MU): Never Smoked Tobacco Have You Smoked in the Last Year: No When Did the Patient Quit Smoking/Using Tobacco: 2010 Household Exposure Type: Cigarettes - Immunization History Most Recent Influenza Vaccination: 12/09 Most Recent Tetanus Shot: unsure Hx Tetanus, Diphtheria Vaccination: Yes Vaccination Up to Date: Yes Review of Systems All Other Systems Reviewed And Are Negative: Yes Constitutional: Positive: Negative Skin: Positive: Rash Respiratory: Positive: Negative Cardiovascular: Positive: Negative Gastrointestinal: Positive: Negative Physical Exam Triage Information Reviewed: Yes Appearance: Well-Appearing, No Pain Distress, Well-Nourished Vital Signs: Initial Vital Signs Temp 98.2 F 09/15/18 20:22 Pulse 77 09/15/18 20:22 Resp 18 09/15/18 20:22 BP 144/82 09/15/18 20:22 Pulse Ox 100 09/15/18 20:22 Vital Signs Reviewed: Yes Eyes: Positive: Conjunctiva Clear ENT: Positive: Hearing grossly normal Neck: Positive: Supple Respiratory: Positive: No respiratory distress, No accessory muscle use Cardiovascular: Positive: Pulses Normal Abdomen Description: Positive: Soft Musculoskeletal: Positive: No Edema Neurological: Positive: Alert Psychological: Positive: Age Appropriate Behavior Skin: Positive: Rashes - ERYTHEMATOUS PAPULAR RASH ON DORSAL SURFACE OF BOTH HANDS WITH MILD EXCORIATION Course/Dx - Course Course Of Treatment: APPEARANCE CONSISTENT WITH CONTACT DERMATITIS. WILL TREAT WITH PREDNISONE AND TOPICAL TRIAMCINOLONE AND TOPICAL BENADRYL. ADVISED AN OTC ANTIHISTAMINE. IF NOT IMPROVING WITH THIS TREATMENT FOLLOW-UP WITH CHIEF DEPUTY COURT CLERK. - Diagnoses Provider Diagnosis: Contact dermatitis Discharge - Sign-Out/Discharge Documenting (check all that apply): Patient Departure All imaging exams completed and their final reports reviewed: No Studies - Discharge Plan Condition: Stable Disposition: HOME Prescriptions: diPHENhydraMINE 2% CREAM (NF) [Banophen 2% CREAM (NF)] 1 applic TOPICAL Q6H PRN #1 tube PRN Reason: Itching predniSONE TAB* [Deltasone 20 MG TAB*] 40 mg PO DAILY #8 tab Triamcinolone 0.1% CREAM(NF) [Kenalog Cream 0.1%(NF)] 1 applic TOPICAL TID PRN # 1 tube PRN Reason: Itching Patient Education Materials: Contact Dermatitis (ED) Referrals: Sapna Sinha MD [Primary Care Provider] - If Needed Additional Instructions: YOUR RASH IS CONSISTENT IN APPEARANCE WITH A CONTACT DERMATITIS. IT MAY ALSO BE IRRITATION FROM DRY SKIN IF YOU WASH YOUR HANDS TOO FREQUENTLY. BE SURE TO USE A HYPOALLERGENIC MOISTURIZER AFTER EACH TIME YOU WASH YOUR HANDS. TAKE PREDNISONE DAILY FOR THE NEXT 5 DAYS. OKAY TO USE TOPICAL STEROID CREAM ALTERNATING WITH TOPICAL DIPHENHYDRAMINE CREAM TO COMBAT THE ITCH. CONSIDER TAKING AN OTC ANTIHISTAMINE SUCH LORATADINE OR CETIRIZINE IN THE MORNING. FOLLOW-UP WITH YOUR CHIEF DEPUTY COURT CLERK IN 2 WEEKS IF YOUR SYMPTOMS ARE NOT IMPROVING WITH THIS TREATMENT. - Billing Disposition and Condition Condition: STABLE Disposition: Home
== END 2018-09-15 21:20 | disposition home or self-care (01) ==
LOC: UCEAST 19:34
DX: L25.9 Unspecified contact dermatitis, unspecified cause (principal); I10 Essential (primary) hypertension; H91.90 Unspecified hearing loss, unspecified ear; Z87.891 Personal history of nicotine dependence
CPT/HCPCS: 99212; G0463; J7512

== ENCOUNTER 2018-10-26 18:40 | Emergency (ER) | payer MEDICARE, MEDICAID ==
[2018-10-26 19:38] VITALS: BP 147/75
== END 2018-10-26 20:35 | disposition home or self-care (01) ==
LOC: UCEAST 18:40
DX: Z53.8 Procedure and treatment not carried out for other reasons (principal)
CPT/HCPCS: 99212; G0463

== ENCOUNTER 2019-01-03 16:43 | Emergency (ER) | payer MEDICARE, MEDICAID ==
--- OUTSIDE RECORDS SUMMARY | 2019-01-03 16:49 | XMS REPORT | Summary of Care ---
:1960 Author Organization [facility] Address [address] [place] [address] Care Team Providers Name Role Phone None, [place] Primary Care Provider Unavailable Reason for Visit Reason Comments Finger Pain left pinky finger. lots of pain, wakes her up throughout the night. Encounter Details Date Type Department Care Team Description 12/28/2018 Office Visit Cecilia Ballard, Finger pain, left (Primary Dx); Practice [employer]KER Sprain of left little finger, unspecified site of finger, initial encounter [address] [place] [address] [place] [address] [phone] Allergies Active Allergy Reactions Severity Noted Date Comments Clarithromycin Rash 03/12/2007 Latex Rash 05/27/2009 Peanuts Dermatologic Reaction 12/12/2013 Penicillin G Potassium Rash 03/12/2007 Sulfa Antibiotics Rash 04/24/2007 Tape: Silk Or Adhesive Rash 05/06/2008 documented as of this encounter (statuses as of 12/28/2018) Medications Medication Sig Dispensed Refills Start Date End Date Status Estradiol (VAGIFEM) 10 Place 1 Tab into 8 Tab 1 04/04/2016 Active MCG Vaginal Tab the vagina 2 times per week at bedtime. Rizatriptan Benzoate 10 Take 1 Tab by 12 Tab 5 04/01/2016 Active MG Oral Tab mouth DAILY NEEDED (migraine MR in Q2hrs x2 if needed (MDD 3 - up to 3x week)). cetirizine (ZYRTEC) 10 Take 1 Tab by 30 Tab 5 09/12/2016 Active MG Oral Tab mouth DAILY. clobetasol (CORMAX) apply to 30 g 1 10/28/2016 Active 0.05 % Apply externally PSORIASIS PLAQUE OintmentIndications: for 2 weeks Psoriasis Ketotifen Fumarate Place 1 Drop to 10 mL 1 11/23/2016 Active (ZADITOR) 0.025 % the external eye Ophthalmic Solution TWO TIMES DAILY NEEDED (itchy eyes). Spacer/Aero Chamber 1 Units by Does 1 Units 0 02/03/2017 Active Mouthpiece Does not not apply route apply MiscIndications: NEEDED (As Asthma, unspecified needed with asthma severity, inhaler). unspecified whether complicated, unspecified whether persistent Wheat Dextrin Take 1 Tab by 90 Tab 5 02/27/2017 Active (BENEFIBER) Oral Tab mouth THREE TIMES DAILY. esomeprazole magnesium Take 40 mg by 60 Cap 1 03/01/2017 Active (NEXIUM) 40 MG Oral mouth TWICE CAPSULE DELAYED DAILY. RELEASEIndications: Gastroesophageal reflux disease with esophagitis clobetasol (TEMOVATE) Twice daily x 3 15 g 0 08/01/2017 Active 0.05 % Apply externally days then twice Cream weekly estrogens, conjugated 0.5 Applicators 1 Tube 3 08/01/2017 Active (PREMARIN) 0.625 MG/GM by Topical route Vaginal Cream EVERY 7 DAYS. Start twice weekly x 2 ; Then once weekly fluocinonide (LIDEX) 1 g by Topical 120 g 0 11/24/2017 Active 0.05 % Apply externally route TWICE CreamIndications: DAILY. Psoriasis atorvastatin (LIPITOR) TAKE ONE TABLET 90 Tab 3 12/05/2017 Active 40 MG Oral BY MOUTH EVERY TabIndications: DAY Moderate episode of recurrent major depressive disorder (HCC) diphenhydrAMINE TAKE ONE CAPSULE 60 Cap 5 12/05/2017 Active (BENADRYL) 25 MG Oral BY MOUTH EVERY 6 Cap HOURS NEEDED FOR PRURITIS valacyclovir (VALTREX) Take 1 Tab by 21 Tab 0 12/22/2017 Active 500 MG Oral Tab mouth THREE TIMES DAILY. mometasone (ELOCON) 0.1 Thin layer twice 1 Tube 0 01/02/2018 Active % Apply externally daily if needed CreamIndications: for itching Itching fluticasone (FLONASE) Dixon 2 Sprays in 1 Bottle 5 01/05/2018 Active 50 MCG/ACT Nasal nose DAILY. Suspension losartan (COZAAR) 50 MG Take 1 Tab by 90 Tab 3 01/09/2018 Active Oral Tab mouth DAILY. nystatin-triamcinolone Apply small 15 g 0 01/12/2018 Active (MYCOLOG) 329214-5.1 amount twice UNIT/GM-% Apply daily externally Ointment Triamcinolone Acetonide 1 Appl by Apply 30 g 1 02/01/2018 Active 0.5 % Apply externally externally route CreamIndications: TWICE DAILY. Itching Apply twice/ day Calcipotriene TOPICAL 1 Appl by Topical 1 Tube 5 02/05/2018 Active (DOVONEX) 0.005 % Apply route DAILY. externally CreamIndications: Skin irritation Glucose Blood 1 Each by In 100 Strip 3 02/05/2018 Active (ACCU-CHEK ACTIVE Vitro route TWICE STRIPS) In Vitro DAILY. Dx E11.9 StripIndications: Freestyle Lite Diabetes mellitus without complication ([facility]) hydrOXYzine HCL Take 1 Tab by 120 Tab 0 02/13/2018 Active (ATARAX) 10 MG Oral Tab mouth HSX1 for 1 dose. Lancets Does not apply by Does not apply 100 Each 3 02/13/2018 Active Misc route TWICE DAILY. Dx E11.9 Freestyle Lite montelukast (SINGULAIR) Take 1 Tab by 90 Tab 3 02/20/2018 Active 10 MG Oral Tab mouth DAILY. Blood Glucose Monitor 1 Device by Does 1 Device 0 02/27/2018 Active Software Does not apply not apply route Device DIRECTED. E11.9, insulin dep. Freestyle lite Insulin Glargine 100 Inject 15 Units 3 Device 5 03/15/2018 Active UNIT/ML Subcutaneous beneath the skin Solution EVERY BEDTIME. Pen-injectorIndications : Type 2 diabetes mellitus without complication, without long-term current use of insulin ([facility]) ADVOCATE INSULIN PEN 1 Units by Does 100 Each 3 03/15/2018 Active NEEDLES 31G X 5 MM Does not apply route not apply DAILY. MiscIndications: Type 2 diabetes mellitus without complication, without long-term current use of insulin ([facility]) pioglitazone (ACTOS) 30 Take 1 Tab by 90 Tab 3 04/20/2018 Active MG Oral TabIndications: mouth DAILY. Urinary tract infection without hematuria, site unspecified Multiple Vitamins-Iron Take 1 Tab by 90 Tab 3 04/30/2018 Active (TAB-A-ABIMAEL/IRON) Oral mouth DAILY. TabIndications: Preventative health care diltiazem (CARTIA XT) Take 300 mg by 30 Cap 5 04/30/2018 Active 300 MG Oral CAPSULE SR mouth DAILY. 24 HRIndications: Essential hypertension albuterol HFA (VENTOLIN Take 2 Puffs by 1 Inhaler 5 06/19/2018 Active HFA) 108 (90 Base) inhalation EVERY MCG/ACT Inhalation Aero FOUR HOURS SolnIndications: NEEDED (for sob). Asthma, unspecified asthma severity, unspecified whether complicated, unspecified whether persistent loratadine TAKE ONE TABLET 30 Tab 0 06/18/2018 Active (CLARITIN,ALAVERT) 10 BY MOUTH EVERY MG Oral TabIndications: DAY Itching Dulaglutide (TRULICITY) Inject 1 Each 6 mL 4 08/13/2018 Active 1.5 MG/0.5ML beneath the skin Subcutaneous Solution EVERY 7 DAYS. Pen-injectorIndications : Type 2 diabetes mellitus without complication, without long-term current use of insulin (HCC) DOK 100 MG Oral Cap TAKE ONE CAPSULE 60 Cap 5 08/22/2018 Active BY MOUTH TWICE A DAY polyethylene glycol Take 1 PKT by 30 Packet 11 08/22/2018 Active (MIRALAX) Oral mouth DAILY. PackIndications: Constipation, unspecified constipation type docusate sodium Take 1 Cap by 180 Cap 1 08/23/2018 Active (DOCQLACE) 100 MG Oral mouth TWICE CapIndications: DAILY. Preventative health care hydrocortisone (HYTONE) by Topical route 0 Active 1 % Apply externally THREE TIMES Cream DAILY. mupirocin (BACTROBAN) 2 Twice daily 1 Tube 0 11/06/2018 Active % Apply externally OintmentIndications: Abrasion of vagina, initial encounter budesonide-formoterol Take 2 INHL by 1 Inhaler 0 11/06/2018 Active fumarate (SYMBICORT) inhalation TWICE 160-4.5 MCG/ACT DAILY. Inhalation AerosolIndications: Asthma, unspecified asthma severity, unspecified whether complicated, unspecified whether persistent fluconazole (DIFLUCAN) Take 1 Tab by 3 Tab 0 11/06/2018 Active 150 MG Oral mouth DAILY. TabIndications: Acute vaginitis metFORMIN HCL 1000 MG Take 1 Tab by 60 Tab 12 11/23/2018 Active Oral TabIndications: mouth TWICE Type 2 diabetes DAILY. mellitus with complication, without long-term current use of insulin ([facility]) nateglinide (STARLIX) Take 1 Tab by 90 Tab 5 11/23/2018 Active 120 MG Oral mouth THREE TIMES TabIndications: Type 2 DAILY BEFORE diabetes mellitus with MEALS. complication, without long-term current use of insulin ([facility]) Continuous Blood Gluc 1 Units by Does 1 Device 0 11/23/2018 Active Finishing Supervisor (FREESTYLE not apply route HARSH 14 DAY READER) Continuous. Does not apply DeviceIndications: Type 2 diabetes mellitus with complication, without long-term current use of insulin ([facility]), Type 2 diabetes mellitus with diabetic dermatitis, unspecified whether emt intermediate insulin use ([facility]) Continuous Blood Gluc 1 Units by Does 6 Each 4 11/23/2018 Active Sensor (FREESTYLE HARSH not apply route 14 DAY SENSOR) Does not EVERY TWO WEEKS. 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 Asthma 07/30/2009 GERD (gastroesophageal reflux disease) 07/30/2009 Psoriasis 03/12/2007 Hypertension Hyperlipidemia Chronic constipation DM (diabetes mellitus) Overview: Since ~ 2007; rashad started summer 2012 Care plan done 10/09/2014 Bipolar affective disorder Overview: Refuses to go to [facility] documented as of this encounter (statuses as of 12/28/2018) Immunizations Name Administration Dates Next Due H1N1 Injectable Adult 05/14/2009 Hepatitis B Vaccine Adult 06/13/2008, 03/17/2008, 02/14/2008 Influenza (IM) Preservative Free 12/14/2018, 12/13/2016, 11/20/2015, 12/17/2014, 11/23/2012, 11/23/2011, 12/16/2010, 01/10/2008 Influenza (IM) W/Pres 01/01/2018, 01/07/2014 Influenza Vaccine Whole 01/12/2009 Influenza Virus Vaccine - Whole 12/20/2006, 12/22/2005, 01/27/2003, 01/07/2002 Influenza Virus Vaccine Pres Free 6-35 12/29/2009 Months PNEUMOCOCCAL POLYSACCHARIDE VACCINE 11/25/2005 TDAP Vaccine 10/27/2015 Tuberculin Skin Test 10/09/2006, 04/19/2002 dT Vaccine 08/16/2005, 09/12/2000 documented as of this encounter Social History Tobacco Use Types Packs/Day Years Used Date Former Smoker Cigarettes 3 Quit: 1973 Smokeless Tobacco: Never Used Alcohol Use Drinks/Week oz/Week Comments No 0 Standard drinks or equivalent 0.0 Sex Assigned at Date Recorded Not on file Job Start Date Occupation Industry Not on file Not on file Not on file Travel History Travel Start Travel End No recent travel history available. documented as of this encounter Last Filed Vital Signs Vital Sign Reading Time Taken Comments Blood Pressure 132/70 12/28/2018 3:09 PM EDT Pulse 77 12/28/2018 3:09 PM EDT Temperature - - Respiratory Rate - - Oxygen Saturation 97% 12/28/2018 3:09 PM EDT Inhaled Oxygen Concentration - - Weight 95.3 kg (210 lb) 12/28/2018 3:09 PM EDT Height 162.6 cm (5' 4") 12/28/2018 3:09 PM EDT Body Mass Index 36.05 12/28/2018 3:09 PM EDT documented in this encounter Patient Instructions Patient InstructionsCecilia Espinoza NP - 12/28/2018 3:00 PM EDTUse the splint on your finger until feeling better. Keep clean and dry. Tylenol and motrin for the pain. Can use heat pads/cold packs to the area (whichever feels better for your). Allow the finger time to rest and heal. Avoid activities that cause pain in the finger. Your blood work is ordered, please do this around January 25, 2019 before your next follow up. Thisblood work is fasting (no food or drink for 8 hours prior). Finger Sprain WAITER AND CASHIER: A finger sprain happens when ligaments in your finger or thumb are stretched or torn. Ligaments arethe tough tissues that connect bones. Ligaments allow your hands to grasp and pinch. Common symptoms include the following: Bruising or changes in skin color Pain and stiffness Swelling and tenderness Seek immediate care for the following symptoms: The skin on your injured finger looks bluish or pale (less color than normal). You have new weakness or numbness in your finger or thumb. You have a splint that you cannot adjust and it feels too tight. Contact your healthcare provider if: You have new or increased swelling or pain in your finger. You have new or increased stiffness when you move your injured finger. You have questions or concerns about your injury or treatment. Treatment for a finger sprain may include medicine to decrease pain. Do not wait until the pain is severe before taking your medicine. Care for a finger sprain: Rest your finger for at least 48 hours. Do not do activities that cause pain. Return to normalactivities as directed. Apply ice on your finger to help decrease pain and swelling. Put crushed ice in a plastic bag and cover it with a towel. Put the ice on your injured finger or thumb every hour for 15 to 20 minutes at a time. You may need to ice the area at least 4 to 8 times each day. Ice your finger for as manydays as directed. Elevate your finger above the level of your heart as often as you can. This will help decreaseswelling and pain. You can elevate your hand by resting it on a pillow. Use a splint or compression as directed. Compression (tight hold) helps support your finger orthumb as it heals. Tape your injured finger to the finger beside it. Severe sprains may be treated with a splint. A splint prevents your finger from moving while it heals. Ask how long you must wear the splint or tape , and how to apply them. Do exercises as directed. You may be given gentle exercises to begin in a few days. Exercises can help decrease stiffness in your finger or thumb. Exercises also help decrease pain and swelling and improve the movement of your finger or thumb. Check with your healthcare provider before you return to your normal activities or sports. Follow up with your healthcare provider as directed: Write down your questions so you remember to ask them during your visits. 2016 [employer]. Information is for End User's use only and may not be sold, redistributed or otherwise used for commercial purposes. All illustrations and images included in CareNotes are the copyrighted property of [employer]. or [employer]. The above information is an ward maid only. It is not intended as medical advice for individual conditions or treatments. Talk to your doctor, nurse or pharmacist before following any medical regimen to see if it is safe and effective for you. documented in this encounter Progress Notes Cecilia Espinoza NP - 12/28/2018 3:00 PM EDT PATIENT: Ruba Flores : 1960 DATE OF SERVICE: 12/28/2018 CHIEF COMPLAINT: Chief Complaint Patient presents with Finger Pain left pinky finger. lots of pain, wakes her up throughout the night. Subjective HISTORY OF PRESENT ILLNESS: Ruba Flores is a 58-y.o. female. HPI Left pinky for 3 days pain, no known injury, pain in 2nd knuckle and medial aspect finger, feels finger is more crooked then other hand. Not swollen. Continuous pain, worse when bending it. Pain making it hard to sleep. A little bit of tingle in the finger. Past Medical History: Diagnosis Date Asthma Bipolar affective disorder ([facility]) Refuses to go to [facility] Chronic constipation Dr. Dougherty Deaf DM (diabetes mellitus) ([facility]) Feet 09/06, eyes - 05/2012 History of breast surgery bilateral breast reduction Hyperlipidemia Hypertension Other postprocedural status(V45.89) breast reduction 1988 Postmenopausal Psoriasis 03/12/2007 Family History Problem Relation Age of Onset Asthma Mother Heart Father Diabetes Father Current Outpatient Medications Medication Sig ADVOCATE INSULIN PEN NEEDLES 31G X 5 MM Does not apply Misc 1 Units by Does not apply route DAILY. albuterol HFA (VENTOLIN HFA) 108 (90 Base) MCG/ACT Inhalation Aero Soln Take 2 Puffs by inhalation EVERY FOUR HOURS NEEDED (for sob). atorvastatin (LIPITOR) 40 MG Oral Tab TAKE ONE TABLET BY MOUTH EVERY DAY Blood Glucose Monitor Software Does not apply Device 1 Device by Does not apply route DIRECTED. E11.9, insulin dep. Freestyle lite budesonide-formoterol fumarate (SYMBICORT) 160-4.5 MCG/ACT Inhalation Aerosol Take 2 INHL by inhalation TWICE DAILY. Calcipotriene TOPICAL (DOVONEX) 0.005 % Apply externally Cream 1 Appl by Topical route DAILY. cetirizine (ZYRTEC) 10 MG Oral Tab Take 1 Tab by mouth DAILY. clobetasol (CORMAX) 0.05 % Apply externally Ointment apply to PSORIASIS PLAQUE for 2 weeks clobetasol (TEMOVATE) 0.05 % Apply externally Cream Twice daily x 3 days then twice weekly Continuous Blood Gluc Finishing Supervisor (FREESTYLE HARSH 14 DAY READER) Does not apply Device 1 Units by Does not apply route Continuous. Continuous Blood Gluc Sensor (FREESTYLE HARSH 14 DAY SENSOR) Does not apply Misc 1 Units by Does not apply route EVERY TWO WEEKS. diltiazem (CARTIA XT) 300 MG Oral CAPSULE SR 24 HR Take 300 mg by mouth DAILY. diphenhydrAMINE (BENADRYL) 25 MG Oral Cap TAKE ONE CAPSULE BY MOUTH EVERY 6 HOURS NEEDED FOR PRURITIS docusate sodium (DOCQLACE) 100 MG Oral Cap Take 1 Cap by mouth TWICE DAILY. DOK 100 MG Oral Cap TAKE ONE CAPSULE BY MOUTH TWICE A DAY Dulaglutide (TRULICITY) 1.5 MG/0.5ML Subcutaneous Solution Pen-injector Inject 1 Each beneaththe skin EVERY 7 DAYS. esomeprazole magnesium (NEXIUM) 40 MG Oral CAPSULE DELAYED RELEASE Take 40 mg by mouth TWICE DAILY. Estradiol (VAGIFEM) [address] 1 Tab into the vagina 2 times per week at bedtime. estrogens, conjugated (PREMARIN) 0.625 MG/GM Vaginal Cream 0.5 Applicators by Topical route EVERY 7 DAYS. Start twice weekly x 2 ; Then once weekly fluconazole (DIFLUCAN) 150 MG Oral Tab Take 1 Tab by mouth DAILY. fluocinonide (LIDEX) 0.05 % Apply externally Cream 1 g by Topical route TWICE DAILY. fluticasone (FLONASE) 50 MCG/ACT Nasal Suspension Dixon 2 Sprays in nose DAILY. Glucose Blood (ACCU-CHEK ACTIVE STRIPS) In Vitro Strip 1 Each by In Vitro route TWICE DAILY. Dx E11.9 Freestyle Lite hydrocortisone (HYTONE) 1 % Apply externally Cream by Topical route THREE TIMES DAILY. hydrOXYzine HCL (ATARAX) 10 MG Oral Tab Take 1 Tab by mouth HSX1 for 1 dose. Insulin Glargine 100 UNIT/ML Subcutaneous Solution Pen-injector Inject 15 Units beneath the skin EVERY BEDTIME. Ketotifen Fumarate (ZADITOR) 0.025 % Ophthalmic Solution Place 1 Drop to the external eye TWOTIMES DAILY NEEDED (itchy eyes). Lancets Does not apply Misc by Does not apply route TWICE DAILY. Dx E11.9 Freestyle Lite loratadine (CLARITIN,ALAVERT) 10 MG Oral Tab TAKE ONE TABLET BY MOUTH EVERY DAY losartan (COZAAR) 50 MG Oral Tab Take 1 Tab by mouth DAILY. metFORMIN HCL 1000 MG Oral Tab Take 1 Tab by mouth TWICE DAILY. mometasone (ELOCON) 0.1 % Apply externally Cream Thin layer twice daily if needed for itching montelukast (SINGULAIR) 10 MG Oral Tab Take 1 Tab by mouth DAILY. Multiple Vitamins-Iron (TAB-A-ABIMAEL/IRON) Oral Tab Take 1 Tab by mouth DAILY. mupirocin (BACTROBAN) 2 % Apply externally Ointment Twice daily nateglinide (STARLIX) 120 MG Oral Tab Take 1 Tab by mouth THREE TIMES DAILY BEFORE MEALS. nystatin-triamcinolone (MYCOLOG) 481496-6.1 UNIT/GM-% Apply externally Ointment Apply small amount twice daily pioglitazone (ACTOS) 30 MG Oral Tab Take 1 Tab by mouth DAILY. polyethylene glycol (MIRALAX) Oral Pack Take 1 PKT by mouth DAILY. Rizatriptan Benzoate 10 MG Oral Tab Take 1 Tab by mouth DAILY NEEDED ( migraine MR in [id number] if needed (MDD 3 - up to 3x week)). Spacer/Aero Chamber Mouthpiece Does not apply Misc 1 Units by Does not apply route NEEDED (As needed with inhaler). Triamcinolone Acetonide 0.5 % Apply externally Cream 1 Appl by Apply externally route TWICE DAILY. Apply twice/ day valacyclovir (VALTREX) 500 MG Oral Tab Take 1 Tab by mouth THREE TIMES DAILY. Wheat Dextrin (BENEFIBER) Oral Tab Take 1 Tab by mouth THREE TIMES DAILY. No current facility-administered medications for this visit. Allergies Allergen Reactions Biaxin [Clarithromycin] Rash Latex Rash Peanuts Dermatologic Reaction Penicillin [Penicillin G Potassium] Rash Sulfa Antibiotics Rash Tape: Silk Or Adhesive Rash Social History Socioeconomic History Marital status: Spouse name: Not on file Number of children: Not on file Years of education: Not on file Highest education level: Not on file Occupational History Not on file Social Needs Financial resource strain: Not on file Food insecurity: Worry: Not on file Inability: Not on file Transportation needs: Medical: Not on file Non-medical: Not on file Tobacco Use Smoking status: Former Smoker Packs/day: 3.00 Types: Cigarettes Last attempt to quit: 1973 Years since quittin.5 Smokeless tobacco: Never Used Substance and Sexual Activity Alcohol use: No Alcohol/week: 0.0 standard drinks Drug use: No Sexual activity: Not on file Lifestyle Physical activity: Days per week: Not on file Minutes per session: Not on file Stress: Not on file Relationships Social connections: Talks on phone: Not on file Gets together: Not on file Attends adventism service: Not on file Active member of club or organization: Not on file Attends meetings of clubs or organizations: Not on file Relationship status: Not on file Intimate partner violence: Fear of current or ex partner: Not on file Emotionally abused: Not on file Physically abused: Not on file Forced sexual activity: Not on file Other Topics Concern Not on file Social History Narrative Lives in [place], alone, no pets. No tobacco use. Works at [employer]. REVIEW OF SYSTEMS: Review of Systems Constitutional: Negative for chills, fever and malaise/fatigue. Musculoskeletal: Positive for joint pain (left pinky). Negative for falls and myalgias. Neurological: Negative for tingling and sensory change. Objective PHYSICAL EXAM: VITALS: BP 132/70 (BP Location: Left arm, Patient Position: Sitting) | Pulse 77 | Ht 5' 4" (1.626m) | Wt 210 lb (95.3 kg) | LMP 11/26/2007 | SpO2 97% | BMI 36.05 kg/m Body mass index is 36.05 kg/m. Physical Exam Vitals signs and nursing note reviewed. Constitutional: General: She is not in acute distress. Appearance: Normal appearance. She is well-developed. Cardiovascular: Rate and Rhythm: Normal rate and regular rhythm. Heart sounds: Normal heart sounds. No murmur. No friction rub. No gallop. Pulmonary: Effort: Pulmonary effort is normal. No respiratory distress. Breath sounds: Normal breath sounds. Musculoskeletal: Left hand: She exhibits bony tenderness (5th finger entire length, nothing into palm or dorsal hand). She exhibits normal range of motion and no swelling. Neurological: Mental Status: She is alert. Psychiatric: Mood and Affect: Mood and affect normal. Speech: Speech normal. Behavior: Behavior normal. Behavior is cooperative. ASSESSMENT / IMPRESSION: ICD-9-CM ICD-10-CM 1. Finger pain, left 729.5 M79.645 XR FINGER OR FINGERS MIN 2 VIEWS LEFT ( STANDARD) 2. Sprain of left little finger, unspecified site of finger, initial encounter 842.10 S63.617A Plan 1. Finger pain, left - XR FINGER OR FINGERS MIN 2 VIEWS LEFT (STANDARD); Future - grossly normal, will get official read 2. Sprain of left little finger, unspecified site of finger, initial encounter Splint placed on finger. Use the splint on your finger until feeling better. Keep clean and dry. Tylenol and motrin for the pain. Can use heat pads/cold packs to the area (whichever feels better for your). Allow the finger time to rest and heal. Avoid activities that cause pain in the finger. Your blood work is ordered, please do this around January 25, 2019 before your next follow up. Thisblood work is fasting (no food or drink for 8 hours prior). Author: Cecilia Espinoza NP 12/28/2018 18:50 documented in this encounter Plan of Treatment Date Type Specialty Care Team Description 02/14/2019 Lab Internal Medicine 02/28/2019 Office Visit Family [facility] Cecilia Espinoza NP [id number] [place] [address] [phone] Name Type Priority Associated Diagnoses Date/Time XR FINGER OR FINGERS Imaging Routine Finger pain, left 12/28/2018 3:33 PM EDT MIN 2 VIEWS LEFT (STANDARD) Name Type Priority Associated Diagnoses Order Schedule XR FINGER OR FINGERS Imaging Routine Finger pain, left Expected: 12/28/2018 , MIN 2 VIEWS LEFT Expires: 12/28/2019 (STANDARD) Health Maintenance Due Date Last Done Comments DEPRESSION SCREENING 1970 ZOSTER IMMUNIZATION SERIES 2008 (1 of 2) MEDICARE ANNUAL WELLNESS 07/03/2014 07/03/2013, 06/29/2012, VISIT 05/17/2010 Diabetic Eye Exam 01/23/2018 01/23/2017 COLONOSCOPY SCREENING 07/23/2018 07/23/2013, 05/23/2013, 10/01/2009, Additional history exists FOOT EXAM 08/30/2018 08/30/2017, 08/30/2017, 08/30/2017, Additional history exists HEMOGLOBIN A1C 01/25/2019 10/25/2018, 07/04/2018, 05/09/2018, Additional history exists PAP SMEAR 02/21/2019 02/21/2017, 02/09/2015, 06/22/2011, Additional history exists LIPID DISORDER SCREENING 10/26/2019 10/25/2018, 07/04/2018, 09/28/2017, Additional history exists MAMMOGRAM (SCREENING) 12/15/2019 12/14/2018, 12/14/2017, 12/13/2016, Additional history exists PNEUMOCOCCAL 0-64 YRS Completed 11/25/2005 INFLUENZA VACCINE Completed 12/14/2018, 01/01/2018, 12/13/2016, Additional history exists HPV IMMUNIZATION SERIES Aged Out No longer eligible based on patient's age to complete this topic MENINGOCOCCAL VACCINE IMM Aged Out No longer eligible based on patient's age to complete this topic documented as of this encounter Goals Goal Patient Goal Associated Recent Patient-Stated? Author Type Problems Progress Blood Pressure Blood Pressure 132/70 No Crepet, < 140/90 (12/28/2018 MD Sapna 3:09 PM EDT) Note: This is an individualized treatment (blood pressure) goal for Ruba Flores: Displayed above (on the left) is your goal for blood pressure control. Your most recent blood pressure is also shown above, on the right. You should try to achieve blood pressures that are lower than your goal listed above (on the left). Depression screen (PHQ-9) total score < 5 Depression No Sapna Sinha MD Note: This is an individualized treatment (depression) goal for Ruba Flores: Displayed above is your goal for a depression screening (PHQ-9) score that would indicate good control of your depression. Diabetes < 7.0 Diabetes DM (diabetes 14.2 (10/25/2018 Sapna Donald MD mellitus) 2:20 PM EDT) Note: Diabetes Care Plan According to current 2014 ADA guidelines the patient A1C goal is less than 7. The patient's last A1C was Lab Results Lab Results Value Date/Time GLYCO 8.2 10/02/201430 GLYCO 7.6 04/08/2013 0752 The patient is:above goal . As your provider, it is important that I advise you regarding: your current medications and help you with any challenges you may face taking your medications as directed (ex. instructions, cost, side effects, and interactions). Important lifestyle changes:exercise, diet, glucose monitoring and medication compliance your clinical goals and how you can achieve success:weight reduction, exercise plan, diet management and glucose monitoring medication management: adjusted medications as appropriate patient education/self-management tools provided: Yes To successfully manage my Diabetes I will: have lab work every six months if my previous A1c was 7 or less. If my results were greater than 7, I will have lab work every three months. My goal is to control my diabetes by keeping A1c below 7.0 take medications every day as prescribed by my healthcare provider and if unable to take them I will discuss with my provider. exercise/walk 45 minutes 4 day(s) per week. If I experience chest pain, chest tightness, or shortness of breath, I will seek medical attention immediately. check feet daily. If sores or irritation are noticed, will seek medical attention. follow a low carbohydrate and low fat diet. My goal is an LDL (bad cholesterol) number less than 100 when I have my routine lab work. check blood sugar as instructed and will call my healthcare provider if the results are consistently below 70 or above 300. I will monitor for symptoms of low blood sugar (feeling faint, dizzy, lig htheaded, jittery, sweaty, or hungry), if symptoms are noticed, I will eat or drink something (glucose tabs, orange juice, candy) to help raise sugar. record my blood sugar results (including dextrose sticks). [facility] is safe and secure way for you to do this in your medical record online. try to obtain an ideal body weight. My recent weight was Weight: (refused). My weight loss goal for my next office visit is 10 lbs . to prevent kidney problems common to people with diabetes I will complete a yearly Microalbumin to check for protein in urine. I will talk with my healthcare provider about medications to prevent diabetic renal disease. to prevent diabetic retinopathy I will see an eye doctor yearly. A yearly dilated eye exam helps prevent blindness. if currently smoking, will discuss how to quit smoking with my healthcare provider and work towards quitting. Glycohemoglobin A1c < 7.0 Diabetes 14.2 (10/25/2018 2:20 PM No Sapna Sinha MD EDT) Note: This is an individualized treatment (diabetes control, HgbA1C) goal for Ruba Flores: Displayed above is your progress towards your HgbA1C goal. Your goal is shown above (on the left); your most recent HgbA1C is shown on the right. Note that lower numbers are better. Weight loss vs. 18 mo Lifestyle 24 (12/28/2018 3:09 PM EDT) No Sapna Sinha MD max (lbs) >= 10 Note: This is an individualized lifestyle goal for Ruba Flores: Your body mass index (BMI) is more than 30. You should lose weight. A reasonable starting goal is to lose 10 pounds. Displayed above is how many pounds you have lost thus far towards your 10 pound weight loss goal. Keep a regular sleep schedule Lifestyle Sapna Donald MD Note: This is an individualized lifestyle goal for Ruba Flores: Please maintain a regular sleep schedule. This may help with some symptoms of depression. Keep immunizations current Lifestyle No Sapna Sinha MD Note: This is an individualized lifestyle goal for Ruba Flores: Please be sure to keep up-to-date on recommended immunizations. For example, this would include a yearly influenza vaccine. Immunization status can be seen by looking at the Health Maintenance sections of your [facility], Plan of Care, and any After Visit Summaries. Take all prescribed medications as directed Self-management Sapna Donald MD Note: This is an individualized self-management goal for Ruba Flores: Please take all prescribed medications as directed. 1. Do not skip doses. If you cannot afford your medications, talk with your doctor. 2. Use a pill reminder system such as a pill box if needed. Your pharmacist can help you with this. 3. Contact your Pharmacy 5 days before your medication runs out. If you cannot take your medications for any reasons, talk with your doctor. 4. Please bring all of your medication bottles and inhalers (or a list of all your medications/inhalers) with you to every visit. Potential barriers to meeting all of your care plan goals will continue to be addressed on an ongoing basis. documented as of this encounter Results Not on filedocumented in this encounter Visit Diagnoses Diagnosis Finger pain, left - Primary Pain in limb Sprain of left little finger, unspecified site of finger, initial encounter documented in this encounter Insurance Payer Benefit Plan / Subscriber ID Effective Dates Phone Address Type Group MEDICARE MEDICARE PART A xxxxxxxxxxx 1985-Present Medicare & B MEDICAID [facility] xxxxxxxx 2018-Present Medicaid [place] (Work) [place] [address] documented as of this encounter
--- OUTSIDE RECORDS SUMMARY | 2019-01-03 16:49 | XMS REPORT | Summary of Care ---
:1960 Author Organization [facility] Address [address] [facility] [place] [address] Care Team Providers Name Role Phone None, [place] Primary Care Provider Unavailable Reason for Visit Reason Comments Follow Up pt is here to follow up and re establish as she was a Dr. 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 Type 2 diabetes mellitus with complication, without long-term current use of insulin (HCC); [address] [place]; [place] [address] [place] [address] Constipation, unspecified constipation type [phone] Allergies Active Allergy Reactions Severity Noted Date Comments Clarithromycin Rash 03/12/2007 Latex Rash 05/27/2009 Peanuts Dermatologic Reaction 12/12/2013 Penicillin G Potassium Rash 03/12/2007 Sulfa Antibiotics Rash 04/24/2007 Tape: Silk Or Adhesive Rash 05/06/2008 documented as of this encounter (statuses as of 11/23/2018) Medications Medication Sig Dispensed Refills Start End Date Status Date Estradiol (VAGIFEM) Place 1 Tab 8 Tab 1 Active 10 MCG Vaginal Tab into the vagina 7 2 times per week at bedtime. Rizatriptan Benzoate Take 1 Tab by 12 Tab 5 Active 10 MG Oral Tab mouth DAILY 7 NEEDED (migraine MR in Q2hrs x2 if needed (MDD 3 - up to 3x week)). cetirizine (ZYRTEC) Take 1 Tab by 30 Tab 5 Active 10 MG Oral Tab mouth DAILY. 7 clobetasol (CORMAX) apply to 30 g 1 Active 0.05 % Apply PSORIASIS 7 externally PLAQUE for 2 OintmentIndications: weeks Psoriasis Ketotifen Fumarate Place 1 Drop to 10 mL 1 Active (ZADITOR) 0.025 % the external 7 Ophthalmic Solution eye TWO TIMES DAILY NEEDED (itchy eyes). Spacer/Aero Chamber 1 Units by Does 1 Units 0 Active Mouthpiece Does not not apply route 7 apply NEEDED (As MiscIndications: needed with Asthma, unspecified inhaler). asthma severity, unspecified whether complicated, unspecified whether persistent Wheat Dextrin Take 1 Tab by 90 Tab 5 Active (BENEFIBER) Oral Tab mouth THREE 7 TIMES DAILY. esomeprazole Take 40 mg by 60 Cap 1 Active magnesium (NEXIUM) mouth TWICE 7 40 MG Oral CAPSULE DAILY. DELAYED RELEASEIndications: Gastroesophageal reflux disease with esophagitis clobetasol Twice daily x 3 15 g 0 Active (TEMOVATE) 0.05 % days then twice 8 Apply externally weekly Cream estrogens, 0.5 Applicators 1 Tube 3 Active conjugated by Topical 8 (PREMARIN) 0.625 route EVERY 7 MG/GM Vaginal Cream DAYS. Start twice weekly x 2 ; Then once weekly fluocinonide (LIDEX) 1 g by Topical 120 g 0 Active 0.05 % Apply route TWICE 8 externally DAILY. CreamIndications: Psoriasis atorvastatin TAKE ONE TABLET 90 Tab 3 Active (LIPITOR) 40 MG Oral BY MOUTH EVERY 8 TabIndications: DAY Moderate episode of recurrent major depressive disorder (HCC) diphenhydrAMINE TAKE ONE 60 Cap 5 Active (BENADRYL) 25 MG CAPSULE BY 8 Oral Cap MOUTH EVERY 6 HOURS NEEDED FOR PRURITIS valacyclovir Take 1 Tab by 21 Tab 0 Active (VALTREX) 500 MG mouth THREE 8 Oral Tab TIMES DAILY. mometasone (ELOCON) Thin layer 1 Tube 0 Active 0.1 % Apply twice daily if 8 externally needed for CreamIndications: itching Itching fluticasone [place] 2 Sprays 1 Bottle 5 Active (FLONASE) 50 MCG/ACT in nose DAILY. 8 Nasal Suspension losartan (COZAAR) 50 Take 1 Tab by 90 Tab 3 Active MG Oral Tab mouth DAILY. 8 nystatin-triamcinolo Apply small 15 g 0 Active ne (MYCOLOG) amount twice 8 356691-4.1 UNIT/GM-% daily Apply externally Ointment Triamcinolone 1 Appl by Apply 30 g 1 Active Acetonide 0.5 % externally 8 Apply externally route TWICE CreamIndications: DAILY. Apply Itching twice/ day Calcipotriene 1 Appl by 1 Tube 5 Active TOPICAL (DOVONEX) Topical route 8 0.005 % Apply DAILY. externally CreamIndications: Skin irritation Glucose Blood 1 Each by In 100 Strip 3 Active (ACCU-CHEK ACTIVE Vitro route 8 STRIPS) In Vitro TWICE DAILY. Dx StripIndications: E11.9 Diabetes mellitus Freestyle Lite without complication (HCC) hydrOXYzine HCL Take 1 Tab by 120 Tab 0 Active (ATARAX) 10 MG Oral mouth HSX1 for 8 Tab 1 dose. Lancets Does not by Does not 100 Each 3 Active apply Misc apply route 8 TWICE DAILY. Dx E11.9 Freestyle Lite montelukast Take 1 Tab by 90 Tab 3 Active (SINGULAIR) 10 MG mouth DAILY. 8 Oral Tab Continuous Blood 1 Each by Does 1 Each 0 Active Gluc Sensor not apply route 8 (FREESTYLE BELINDA DAILY. SENSOR SYSTEM) Does not apply Misc Blood Glucose 1 Device by 1 Device 0 Active Monitor Software Does not apply 8 Does not apply route Device DIRECTED. E11.9, insulin dep. Freestyle lite Insulin Glargine 100 Inject 15 Units 3 Device 5 Active UNIT/ML Subcutaneous beneath the 8 Solution skin EVERY Pen-injectorIndicati BEDTIME. ons: Type 2 diabetes mellitus without complication, without long-term current use of insulin ([facility]) ADVOCATE INSULIN PEN 1 Units by Does 100 Each 3 Active NEEDLES 31G X 5 MM not apply route 8 Does not apply DAILY. MiscIndications: Type 2 diabetes mellitus without complication, without long-term current use of insulin ([facility]) pioglitazone (ACTOS) Take 1 Tab by 90 Tab 3 Active 30 MG Oral mouth DAILY. 9 TabIndications: Urinary tract infection without hematuria, site unspecified Multiple Take 1 Tab by 90 Tab 3 Active Vitamins-Iron mouth DAILY. 9 (TAB-A-ABIMAEL/IRON) Oral TabIndications: Preventative health care diltiazem (CARTIA Take 300 mg by 30 Cap 5 Active XT) 300 MG Oral mouth DAILY. 9 CAPSULE SR 24 HRIndications: Essential hypertension albuterol HFA Take 2 Puffs by 1 Inhaler 5 Active (VENTOLIN HFA) 108 inhalation 9 (90 Base) MCG/ACT EVERY FOUR Inhalation Aero HOURS NEEDED SolnIndications: (for sob). Asthma, unspecified asthma severity, unspecified whether complicated, unspecified whether persistent loratadine TAKE ONE TABLET 30 Tab 0 Active (CLARITIN,ALAVERT) BY MOUTH EVERY 9 10 MG Oral DAY TabIndications: Itching Dulaglutide Inject 1 Each 6 mL 4 Active (TRULICITY) 1.5 beneath the 9 MG/0.5ML skin EVERY 7 Subcutaneous DAYS. Solution Pen-injectorIndicati ons: Type 2 diabetes mellitus without complication, without long-term current use of insulin ([facility]) DOK 100 MG Oral Cap TAKE ONE 60 Cap 5 Active CAPSULE BY 9 MOUTH TWICE A DAY polyethylene glycol Take 1 PKT by 30 Packet 11 Active (MIRALAX) Oral mouth DAILY. 9 PackIndications: Constipation, unspecified constipation type docusate sodium Take 1 Cap by 180 Cap 1 Active (DOCQLACE) 100 MG mouth TWICE 9 Oral CapIndications: DAILY. Preventative health care hydrocortisone by Topical 0 Active (HYTONE) 1 % Apply route THREE externally Cream TIMES DAILY. mupirocin Twice daily 1 Tube 0 Active (BACTROBAN) 2 % 9 Apply externally OintmentIndications: Abrasion of vagina, initial encounter budesonide-formotero Take 2 INHL by 1 Inhaler 0 Active l fumarate inhalation 9 (SYMBICORT) 160-4.5 TWICE DAILY. MCG/ACT Inhalation AerosolIndications: Asthma, unspecified asthma severity, unspecified whether complicated, unspecified whether persistent fluconazole Take 1 Tab by 3 Tab 0 Active (DIFLUCAN) 150 MG mouth DAILY. 9 Oral TabIndications: Acute vaginitis metFORMIN HCL 1000 Take 1 Tab by 60 Tab 12 Active MG Oral mouth TWICE 9 TabIndications: Type DAILY. 2 diabetes mellitus with complication, without long-term current use of insulin (HCC) nateglinide Take 1 Tab by 90 Tab 5 Active (STARLIX) 120 MG mouth THREE 9 Oral TabIndications: TIMES DAILY Type 2 diabetes BEFORE MEALS. mellitus with complication, without long-term current use of insulin (HCC) nateglinide Take 1 Tab by 90 Tab 5 11/24/19 Discontinued (STARLIX) 120 MG mouth THREE 9 19 (Reorder) Oral Tab TIMES DAILY BEFORE MEALS. metFORMIN Take 2 Tabs by 120 Tab 5 11/24/19 Discontinued (GLUCOPHAGE) 500 MG mouth TWICE 9 19 Oral Tab DAILY. 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 Asthma 07/30/2009 GERD (gastroesophageal reflux disease) 07/30/2009 Psoriasis 03/12/2007 Hypertension Hyperlipidemia Chronic constipation DM (diabetes mellitus) Overview: Since ~ 2007; rashad started summer 2012 Care plan done 10/09/2014 Bipolar affective disorder Overview: Refuses to go to [facility] documented as of this encounter (statuses as of 11/23/2018) Immunizations Name Administration Dates Next Due H1N1 Injectable Adult 05/14/2009 Hepatitis B Vaccine Adult 06/13/2008, 03/17/2008, 02/14/2008 Influenza (IM) Preservative Free 12/13/2016, 11/20/2015, 12/17/2014, 11/23/2012, 11/23/2011, 12/16/2010, 01/10/2008 [...] Sign Reading Time Taken Comments Blood Pressure 138/82 11/23/2018 10:00 AM EDT Pulse 72 11/23/2018 10:00 AM EDT Temperature - - Respiratory Rate - - Oxygen Saturation 98% 11/23/2018 10:00 AM EDT Inhaled Oxygen Concentration - - Weight 91.6 kg (202 lb) 11/23/2018 10:00 AM EDT Height 162.6 cm (5' 4") 11/23/2018 10:00 AM EDT Body Mass Index 34.67 11/23/2018 10:00 AM EDT documented in this encounter Patient Instructions Patient InstructionsCecilia Espinoza NP - 11/23/2018 10:00 AM EDTMetformin 1 tablet twice daily. Please get your blood drawn January 25 - fasting labs. Make an appointment about 1 week later for diabetes. We will discuss freestyle belinda at that time. documented in this encounter Progress Notes Cecilia Espinoza NP - 11/23/2018 10:00 AM EDT PATIENT: Ruba Flores : 1960 DATE OF SERVICE: 11/23/2018 CHIEF COMPLAINT: Chief Complaint Patient presents with Follow Up pt is here to follow up and re establish as she was a Dr. Hernandez patient Derm Problem pt states she gets very itchy on her stomach when it gets hot outside Subjective HISTORY OF PRESENT ILLNESS: Ruba Flores is a 58-y.o. female. HPI Patient is here with a internet designer. She sometimes has a hard time with BM's - last was 3 weeks, it is better currently. Current treatments for this are: taking docusate twice daily. She is not taking her miralax or her benefiber tablet. Also dry itching on stomach depending on the weather, worse when it is hot out. She puts a cream onit (nystatin) and that is helping. She has previously seen Dr. Hernandez and Dr. Sinha as her PCP but would like to switch. She feels she is on too many medications, she would like to be on less medications. She feels that she should not be doing her insulin injections, her mother told her it was too risky and to not inject herself or take all of these medications.. She has not been doing them and refusesto going forward. She does not want to take diabetes medications. She also worries that it is dangerous to inject insulin with her puppy in the home. She walks a lot at work, she feels she does not eat too much. She eats vegetables. She eats a lot of fruit all day. She does not believe that fruit has sugar in it. Exercising every day - walking her dog. She does not check her sugars at home. She is tired of checking it and will not check it. She is supposed to have a sleep study but has not done so yet - she has been unable to get time off from work to do her sleep study. She gets headaches sometimes, takes one aleve with good relief. Eye Exam: 2017, due for 2019 - no problems. Feet: No podiatry, no problems reported. Past Medical History: Diagnosis Date Asthma Bipolar affective disorder ([facility]) Refuses to go to [facility] Chronic constipation Dr. Dougherty Deaf DM (diabetes mellitus) ([facility]) Feet 09/06, eyes - 05/2012 History of [...] days then twice weekly Continuous Blood Gluc Sensor ([employer]A [employer]YLE BELINDA SENSOR SYSTEM) Does not apply Misc 1 Each by Does not apply route DAILY. diltiazem (CARTIA XT) 300 MG Oral CAPSULE [...] DAILY. fluticasone (FLONASE) 50 MCG/ACT Nasal Suspension [place] 2 Sprays in nose DAILY. Glucose Blood [...] THREE TIMES DAILY BEFORE MEALS. nystatin-triamcinolone (MYCOLOG) 302267-1.1 UNIT/GM-% Apply externally Ointment Apply small amount twice daily pioglitazone (ACTOS) 30 MG Oral Tab Take 1 Tab by mouth DAILY. polyethylene glycol (MIRALAX) Oral Pack Take 1 PKT by mouth DAILY. Rizatriptan Benzoate 10 MG Oral Tab Take 1 Tab by mouth DAILY NEEDED ( migraine MR in [id number] if needed (MDD 3 - up to [...] Last attempt to quit: 1973 Years since quittin.4 Smokeless tobacco: Never Used Substance and Sexual Activity Alcohol use: No Alcohol/week: 0.0 standard drinks Drug use: No Sexual activity: Not on file Lifestyle Physical activity: Days per week: Not on file Minutes per session: Not on file Stress: Not on file Relationships Social connections: Talks on phone: Not on file Gets together: Not on file Attends gnosticist service: Not on file Active member of [...] on file Social History Narrative Lives in [place], alone, no pets. No tobacco use. Works at [employer]. REVIEW OF SYSTEMS: Review of Systems Constitutional: Negative for chills, fever and weight loss. HENT: Negative for congestion. Eyes: Negative for blurred vision and double vision. Respiratory: Negative for cough, shortness of breath and wheezing. Cardiovascular: Negative for chest pain and palpitations. Gastrointestinal: Positive for constipation. Negative for abdominal pain, blood in stool, diarrhea, nausea and vomiting. Genitourinary: Negative for dysuria. Neurological: Positive for headaches. Negative for dizziness. Psychiatric/Behavioral: Negative for depression. The patient is not nervous/ anxious. Objective PHYSICAL EXAM: VITALS: BP 138/82 | Pulse 72 | Ht 5' 4" (1.626 m) | Wt 202 lb (91.6 kg) | LMP 11/26/2007 | SpO2 98% | BMI 34.67 kg/m Body mass index is 34.67 kg/m . Physical Exam Constitutional: Vital signs are normal. Cardiovascular: Normal rate, regular rhythm and normal heart sounds. Pulmonary/Chest: Effort normal and breath sounds normal. Abdominal: Normal appearance. Neurological: She is alert. Skin: Skin is warm, dry and intact. Psychiatric: She is agitated and aggressive. Nursing note and vitals reviewed. refused foot exam - states her "feet are fine" ASSESSMENT / IMPRESSION: ICD-9-CM ICD-10-CM 1. Type 2 diabetes mellitus with diabetic dermatitis, unspecified whether snf insulin use ([facility]) 250.80 E11.620 692.9 2. Type 2 diabetes mellitus with complication, without long-term current use of insulin ([facility]) 250.90E11.8 metFORMIN HCL 1000 MG Oral Tab nateglinide (STARLIX) 120 MG Oral Tab BASIC METABOLIC PANEL GLYCOHEMOGLOBIN A1C 3. [place] 695.89 L30.4 4. Constipation, unspecified constipation type 564.00 K59.00 Plan -Recommended to patient that she remain on her diabetes medications, including her insulin - she will take the oral medications but states she will not do the insulin injections. -Recommended that she check her blood sugar at least once daily - she refuses -Recommended that she check her feet daily -Of note, patient commented that if she ever needs an amputation she will alyson this office. Explained to patient that amputation is one of the risks of continued uncontrolled diabetes and to be diligent in checking her feet daily. -Discussed diet and exercise to help with blood sugars - she will continue walking her dog. She disagrees that fruit has sugar in it and will continue to eat fruit all day. She otherwise agrees to limit candy and continue to eat plenty of vegetables. -Suggested to patient that she and her mother see the charging machine operator - she refuses. -Continue nystatin to abdominal folds as needed -Fasting blood work after 01/25/2019 - follow up appointment about one week later. Author: Cecilia Espinoza NP 11/23/2018 11:17 documented in this encounter Plan of Treatment Date Type Specialty Care Team Description 12/14/2018 Ancillary Procedure Radiology 02/14/2019 Lab Internal Medicine 02/28/2019 Office Visit Family Practice Cecilia Espinoza NP [address] [place] [address] [phone] Name Type Priority Associated Diagnoses Order Schedule BASIC METABOLIC PANEL Lab Routine Type 2 diabetes mellitus Expected: 2018 with complication, without (Approximate), Expires: long-term current use of 11/24/2019 insulin (HCC) GLYCOHEMOGLOBIN A1C Lab Routine Type 2 diabetes mellitus Expected: 2018 with complication, without (Approximate), Expires: long-term current use of 11/24/2019 insulin (HCC) Health Maintenance Due Date Last Done Comments DEPRESSION SCREENING 1970 ZOSTER IMMUNIZATION SERIES 2008 (1 of 2) MEDICARE ANNUAL WELLNESS 07/03/2014 07/03/2013, 06/29/2012, VISIT 05/17/2010 Diabetic Eye Exam 01/23/2018 01/23/2017 COLONOSCOPY SCREENING 07/23/2018 07/23/2013, 05/23/2013, 10/01/2009, Additional history exists FOOT EXAM 08/30/2018 08/30/2017, 08/30/2017, 08/30/2017, Additional history exists INFLUENZA VACCINE (#1) 2018 01/01/2018, 12/13/2016, 11/20/2015, Additional history exists MAMMOGRAM (SCREENING) 12/14/2018 12/14/2017, 12/13/2016, 12/11/2015, Additional history exists HEMOGLOBIN A1C 01/25/2019 10/25/2018, 07/04/2018, 05/09/2018, Additional history exists PAP SMEAR 02/21/2019 02/21/2017, 02/09/2015, 06/22/2011, Additional history exists LIPID DISORDER SCREENING 10/26/2019 10/25/2018, 07/04/2018, 12/05/2017, Additional history exists PNEUMOCOCCAL 0-64 YRS Completed 11/25/2005 HPV IMMUNIZATION SERIES Aged Out No longer eligible based on patient's age to complete this topic MENINGOCOCCAL VACCINE IMM Aged Out No longer eligible based on patient's age to complete this topic documented as of this encounter Goals Goal Patient Goal Associated Recent Patient-Stated? Author Type Problems Progress Blood Pressure Blood Pressure 138/82 No Ernestine, < 140/90 (11/23/2018 MD Sapna 10:00 AM EDT) Note: This is an individualized treatment [...] < 7.0 Diabetes DM (diabetes 14.2 (10/25/2018 No Sapna Sinha MD mellitus) 2:20 PM EDT) Note: Diabetes Care Plan According to current 2014 ADA guidelines the patient A1C goal is less than 7. The patient's last A1C was Lab Results Lab Results Value Date/Time GLYCO 8.2 10/02/2014 0830 GLYCO 7.6 04/08/2013 0752 The patient is:above [...] my blood sugar results (including dextrose sticks). [email or web address] is safe and secure way for you [...] < 7.0 Diabetes 14.2 (10/25/2018 2:20 PM Sapna Donald MD EDT) Note: This is an individualized treatment (diabetes control, HgbA1C) goal for Ruba Flores: Displayed above is your progress towards your HgbA1C goal. Your goal is shown above (on the left); your most recent HgbA1C is shown on the right. Note that lower numbers are better. Weight loss vs. 18 mo Lifestyle 32 (11/23/2018 10:00 AM EDT) No Sapna Sinha MD max (lbs) [...] goal. Keep a regular sleep schedule Lifestyle No Sapna Sinha MD Note: This [...] Take all prescribed medications as directed Self-management No Sapna Sinha MD Note: This is an individualized self-management [...] filedocumented in this encounter Visit Diagnoses Diagnosis Type 2 diabetes mellitus with diabetic dermatitis, unspecified whether snf insulin use (HCC) - Primary [place] Other specified erythematous condition Constipation, unspecified constipation type documented in this encounter Insurance Payer Benefit Plan / Subscriber ID Effective Dates Phone Address Type Group MEDICARE MEDICARE PART A xxxxxxxxxxx 1985-Present Medicare & B [place] xxxxxxxx 2018-Present Medicaid [place] Guarantor Name Account Type Relation to Date of Phone Billing Patient Address [place] Personal/Family 1960 [address] (Work) [place] [id number] documented as of this encounter
--- OUTSIDE RECORDS SUMMARY | 2019-01-03 16:49 | XMS REPORT | Summary of Care ---
:1960 Author Organization [facility] Address [address] [facility] [place] [address] Care Team Providers Name Role Phone None, Peck Primary Care Provider Unavailable Reason for Visit Reason Comments Follow Up continues with vaginal irritation and some chronic breathing problems and feels like it sounds noisey/wheezing Encounter Details Date Type Department Care Team Description 11/06/2018 Office Visit [facility] Niels Hernandez, Asthma, unspecified asthma severity, unspecified whether complicated, unspecified whether persistent (Primary Dx); Practice [address] [facility] Abrasion of vagina, initial encounter; [address] [place] [address] [place] [address] [phone] Allergies Active Allergy Reactions Severity Noted Date Comments Clarithromycin Rash 03/12/2007 Latex Rash 05/27/2009 Peanuts Dermatologic Reaction 12/12/2013 Penicillin G Potassium Rash 03/12/2007 Sulfa Antibiotics Rash 04/24/2007 Tape: Silk Or Adhesive Rash 05/06/2008 documented as of this encounter (statuses as of 11/07/2018) Medications Medication Sig Dispensed Refills Start End [...] externally needed for CreamIndications: itching Itching fluticasone [place] 2 Sprays 1 Bottle 5 Active (FLONASE) 50 MCG/ACT in nose DAILY. 8 Nasal Suspension losartan (COZAAR) 50 Take 1 Tab by 90 Tab 3 Active MG Oral Tab mouth DAILY. 8 nystatin-triamcinolo Apply small 15 g 0 Active ne (MYCOLOG) amount twice 8 796665-6.1 UNIT/GM-% daily Apply externally Ointment Triamcinolone 1 [...] Gluc Sensor not apply route 8 (FREESTYLE HARSH DAILY. SENSOR SYSTEM) Does not apply Misc [...] without long-term current use of insulin (HCC) ADVOCATE INSULIN PEN 1 Units by Does 100 Each 3 Active NEEDLES 31G X 5 MM not apply route 8 Does not apply DAILY. MiscIndications: Type 2 diabetes mellitus without complication, without long-term current use of insulin ([facility]) pioglitazone (ACTOS) Take 1 Tab by 90 [...] 9 CAPSULE SR 24 HRIndications: Essential hypertension nateglinide Take 1 Tab by 90 Tab 5 Active (STARLIX) 120 MG mouth THREE 9 Oral Tab TIMES DAILY BEFORE MEALS. albuterol HFA Take 2 Puffs by 1 Inhaler 5 Active (VENTOLIN HFA) 108 inhalation 9 (90 Base) MCG/ACT EVERY FOUR Inhalation Aero HOURS NEEDED SolnIndications: (for sob). Asthma, unspecified asthma severity, unspecified whether complicated, unspecified whether persistent loratadine TAKE ONE TABLET 30 Tab 0 Active (CLARITIN,ALAVERT) BY MOUTH EVERY 9 10 MG Oral DAY TabIndications: Itching metFORMIN Take 2 Tabs by 120 Tab 5 Active (GLUCOPHAGE) 500 MG mouth TWICE 9 Oral Tab DAILY. Dulaglutide Inject 1 Each 6 mL 4 Active (TRULICITY) 1.5 beneath the 9 MG/0.5ML skin EVERY 7 Subcutaneous DAYS. Solution Pen-injectorIndicati ons: Type 2 diabetes mellitus without complication, without long-term current use of insulin ([facility]) DOK 100 MG Oral Cap TAKE ONE [...] mouth DAILY. 9 Oral TabIndications: Acute vaginitis mometasone furoate Take 2 Puffs by 1 Inhaler 5 11/07/19 Discontinued (ASMANEX 60 METERED inhalation 9 19 DOSES) 220 MCG/INH DAILY. Inhalation AEROSOL POWDER, BREATH ACTIVATED fluconazole Take 1 Tab by 8 Tab 1 11/07/19 Discontinued (DIFLUCAN) 150 MG mouth 2 times 9 19 (Reorder) Oral TabIndications: per week at Acute vaginitis bedtime. budesonide respules 2 mL by 120 mL 1 11/07/19 Discontinued (PULMICORT RESPULES) Inhalation-SVN 9 19 0.25 MG/2ML route TWICE Inhalation DAILY. Suspension metFORMIN Take 2 Tabs by 120 Tab 5 11/07/19 Discontinued (GLUCOPHAGE) 500 MG mouth TWICE 9 19 Oral Tab DAILY. Nystatin [id number] by Apply 0 11/07/19 Discontinued UNIT/GM Apply externally 19 externally Powder route. 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 Asthma 07/30/2009 GERD (gastroesophageal reflux disease) 07/30/2009 Psoriasis 03/12/2007 Hypertension Hyperlipidemia Chronic constipation DM (diabetes mellitus) Overview: Since ~ 2007; rashad started summer 2012 Care plan done 10/09/2014 Bipolar affective disorder Overview: Refuses to go to [facility] documented as of this encounter (statuses as of 11/07/2018) Immunizations Name Administration Dates Next Due H1N1 [...] Sign Reading Time Taken Comments Blood Pressure 146/72 11/06/2018 10:22 AM EDT Pulse 71 11/06/2018 10:22 AM EDT Temperature - - Respiratory Rate - - Oxygen Saturation 98% 11/06/2018 10:22 AM EDT Inhaled Oxygen Concentration - - Weight 96.3 kg (212 lb 6.4 oz) 11/06/2018 10:22 AM EDT Height 162.6 cm (5' 4") 11/06/2018 10:22 AM EDT Body Mass Index 36.46 11/06/2018 10:22 AM EDT documented in this encounter Patient Instructions Patient InstructionsNiels Hernandez DO - 11/06/2018 10:20 AM EDTStop pulmicort ( budesonide) and asmanex (mometasone) inhalers. Start symbicort. If Symbicort expensive, stay with asmanex for now. Use topical antibiotic as you have skin abrasion of the vaginal area. Its prescribed Come back to establish with Cecilia Aviles FREE LANCE MODEL in 1 week and bring all medications so we can actually see what you are taking Take diflucan pill for 3 days for presumed fungal infection documented in this encounter Progress Notes Niels Hernandez DO - 11/06/2018 10:20 AM EDT PATIENT: Ruba Flores : 1960 DATE OF SERVICE: 11/06/2018 CHIEF COMPLAINT: Chief Complaint Patient presents with Follow Up continues with vaginal irritation and some chronic breathing problems and feels like it sounds noisey/wheezing Subjective HISTORY OF PRESENT ILLNESS: Ruba Flores is a 58-y.o. female. HPI Here for few issues. I informed the patient that I am leaving [place]. The patient will establish with Cecilia Aviles in few weeks. Clare interpretor with patient's deafness present today Breathing noisy. Some wheezing. Not much dyspnea No fevers On med rec there are 2 steroid inhalers. Uncertain what she uses Vaginal irritation No discharge No UTI symptoms No fevers or chilld Past Medical History: Diagnosis Date Asthma Bipolar affective disorder ([facility]) Refuses to go to [facility] Chronic constipation Dr. Dougherty Deaf DM (diabetes mellitus) ([facility]) Feet 09/06, eyes - 05/2012 History of [...] then twice weekly Continuous Blood Gluc Sensor (Modti HARSH SENSOR SYSTEM) Does not apply Misc 1 [...] DAILY. fluticasone (FLONASE) 50 MCG/ACT Nasal Suspension [place] 2 Sprays in nose DAILY. Glucose Blood [...] Take 1 Tab by mouth DAILY. metFORMIN (GLUCOPHAGE) 500 MG Oral Tab Take 2 Tabs by mouth TWICE DAILY. mometasone (ELOCON) 0.1 [...] THREE TIMES DAILY BEFORE MEALS. nystatin-triamcinolone (MYCOLOG) 680577-6.1 UNIT/GM-% Apply externally Ointment Apply small amount twice daily pioglitazone (ACTOS) 30 MG Oral Tab Take 1 Tab by mouth DAILY. polyethylene glycol (MIRALAX) Oral Pack Take 1 PKT by mouth DAILY. Rizatriptan Benzoate 10 MG Oral Tab Take 1 Tab by mouth DAILY NEEDED ( migraine MR in [id number] if needed (MDD 3 - up to [...] file Gets together: Not on file Attends holiness service: Not on file Active member of [...] on file Social History Narrative Lives in [place], alone, no pets. No tobacco use. Works at [employer]. REVIEW OF SYSTEMS: Review of Systems Constitutional: Negative for diaphoresis. Cardiovascular: Negative for chest pain. Gastrointestinal: Negative for abdominal pain. Neurological: Negative for dizziness. Objective PHYSICAL EXAM: VITALS: BP 146/72 (BP Location: Left arm, Patient Position: Sitting) | Pulse 71 | Ht 5' 4" (1.626m) | Wt 212 lb 6.4 oz (96.3 kg) | LMP 11/26/2007 | SpO2 98% | BMI 36.46 kg/m Body mass index is 36.46 kg/m. Physical Exam Constitutional: She appears well-developed and well-nourished. HENT: Head: Normocephalic and atraumatic. Mouth/Throat: Oropharynx is clear and moist. No oropharyngeal exudate. Cardiovascular: Normal rate and regular rhythm. Pulmonary/Chest: Effort normal and breath sounds normal. Genitourinary: Genitourinary Comments: In presence of Clare, I examined vaginal area externally. Found linear superficial abrasion 1'O clock Some erythema of vaginal area - generalized No discharge seen Skin: She is not diaphoretic. ASSESSMENT / IMPRESSION: ICD-9-CM ICD-10-CM 1. Asthma, unspecified asthma severity, unspecified whether complicated, unspecified whether persistent 493.90 J45.909 budesonide-formoterol fumarate ( SYMBICORT) 160-4.5 MCG/ACT Inhalation Aerosol 2. Abrasion of vagina, initial encounter 911.0 S30.814A mupirocin (BACTROBAN) 2 % Apply externally Ointment 3. Acute vaginitis 616.10 N76.0 fluconazole (DIFLUCAN) 150 MG Oral Tab Informed her to bring all bottles every time as she doesn't know names of medications really well. Don't think she is in asthma flare. Just needs to add back LABA. Rest as follows: Plan Patient Instructions Stop pulmicort (budesonide) and asmanex (mometasone) inhalers. Start symbicort. If Symbicort expensive, stay with asmanex for now. Use topical antibiotic as you have skin abrasion of the vaginal area. Its prescribed Come back to establish with Cecilia Aviles NP in 1 week and bring all medications so we can actually see what you are taking Take diflucan pill for 3 days for presumed fungal infection Author: Niels Hernandez DO 11/07/2018 09:13 documented in this encounter Plan of Treatment Date Type Specialty Care Team Description 11/23/2018 Office Visit Family Practice Cecilia Espinoza NP [address] [place] [address] [phone] 12/14/2018 Ancillary Procedure Radiology Health Maintenance Due Date Last Done Comments [...] Type Problems Progress Blood Pressure Blood Pressure 146/72 No Ernestine, < 140/90 (11/06/2018 MD Sapna 10:22 AM EDT) Note: This is an individualized [...] my blood sugar results (including dextrose sticks). [employer] is safe and secure way for you [...] better. Weight loss vs. 18 mo Lifestyle 21.6 (11/06/2018 10:22 AM Sapna Donald MD max (lbs) >= 10 EDT) Note: This is an individualized lifestyle goal [...] symptoms of depression. Keep immunizations current Lifestyle Sapna Donald MD Note: This is [...] filedocumented in this encounter Visit Diagnoses Diagnosis Asthma, unspecified asthma severity, unspecified whether complicated, unspecified whether persistent - Primary Abrasion of vagina, initial encounter Acute vaginitis Vaginitis and vulvovaginitis, unspecified documented in this encounter Insurance Payer Benefit Plan / Subscriber ID Effective Dates Phone Address Type Group [place] xxxxxxxx 2018-Present Medicaid [place] (Work) [place] [address] documented as of this encounter
[2019-01-03 17:36] VITALS: BP 132/88
--- NOTE | 2019-01-03 18:22 | UC ---
Ear Complaint HPI - HPI Summary HPI Summary: 58-year-old woman comes in with chief complaint of left ear pain and sore throat. Been going on for several days. No recent fevers. Patient also has asthma and she requests a prescription for Symbicort for her asthma. - History of Current Complaint Chief Complaint: UCGeneralIllness Stated Complaint: ear pain Time Seen by Provider: 01/03/19 17:08 Hx Last Menstrual Period: post Pain Intensity: 3 - Allergies/Home Medications Allergies/Adverse Reactions: Allergies Allergy/AdvReac Type Severity Reaction Status Date / Time hydrocodone Allergy Severe Vomiting Verified 01/03/19 17:37 latex Allergy Severe Rash Verified 01/03/19 17:37 morphine Allergy Severe Unknown Verified 01/03/19 17:37 Reaction Details Sulfa (Sulfonamide Allergy Severe UNK Verified 01/03/19 17:37 Antibiotics) tramadol Allergy Severe Difficulty Verified 01/03/19 17:37 Breathing acetaminophen Allergy UNK Verified 01/03/19 17:37 azithromycin Allergy Unknown Verified 01/03/19 17:37 Reaction Details clarithromycin Allergy UNK Verified 01/03/19 17:37 diphenhydramine Allergy Itching Verified 01/03/19 17:37 [From Benadryl] Penicillins Allergy UNK Verified 01/03/19 17:37 NUTS Allergy Severe Rash Uncoded 01/03/19 17:37 TAPE: SILK OR ADHESIVE Allergy Severe Rash Uncoded 01/03/19 17:37 PMH/Surg Hx/FS Hx/Imm Hx Previously Healthy: Yes Endocrine History: Diabetes, Dyslipidemia Cardiovascular History: Hypertension Respiratory History: Asthma Other History Of: Negative For: HIV, Hepatitis B, Hepatitis C, Anticoagulant Therapy - Surgical History Surgical History: Yes Surgery Procedure, Year, and Place: tonsils; breast reduction; tubal ligation; Gall Bladder, R wrist. LEFT Shoulder. Surgery under her Chin, Cant recall for what. right arm surgery 2013. pins removed from elbow 2014 - Family History Known Family History: Positive: Cardiac Disease, Hypertension, Diabetes, Other - Asthma, Non-Contributory - Social History Alcohol Use: None Alcohol Amount: MAYBE A FEW A YEAR Substance Use Type: None Smoking Status (MU): Never Smoked Tobacco Have You Smoked in the Last Year: No When Did the Patient Quit Smoking/Using Tobacco: 2010 Household Exposure Type: Cigarettes - Immunization History Most Recent Influenza Vaccination: 12/09 Most Recent Tetanus Shot: unsure Hx Tetanus, Diphtheria Vaccination: Yes Vaccination Up to Date: Yes Review of Systems All Other Systems Reviewed And Are Negative: Yes Constitutional: Positive: Negative Skin: Positive: Negative Eyes: Positive: Negative ENT: Positive: Sore Throat, Ear Ache Respiratory: Positive: Other - SEE HPI Cardiovascular: Positive: Negative Gastrointestinal: Positive: Negative Motor: Positive: Negative Neurovascular: Positive: Negative Musculoskeletal: Positive: Negative Neurological: Positive: Negative Psychological: Positive: Negative Is Patient Immunocompromised?: No Physical Exam Triage Information Reviewed: Yes Appearance: Well-Appearing, No Pain Distress, Well-Nourished Vital Signs: Initial Vital Signs Temp 98.1 F 01/03/19 17:32 Pulse 76 01/03/19 17:32 Resp 16 01/03/19 17:32 BP 132/88 01/03/19 17:32 Pulse Ox 100 01/03/19 17:32 Vital Signs Reviewed: Yes Eye Exam: Normal Eyes: Positive: Conjunctiva Clear ENT: Positive: Pharyngeal erythema, Nasal congestion, TM bulging - LEFT [place] Neck: Positive: Supple Respiratory: Positive: Lungs clear, Normal breath sounds, No respiratory distress Cardiovascular: Positive: RRR Musculoskeletal: Positive: Strength Intact, ROM Intact Neurological: Positive: Alert, Muscle Tone Normal Psychological: Positive: Age Appropriate Behavior Skin Exam: Normal Ear Complaint Course/Dx - Course Course Of Treatment: THE PATIENT PREFERS TO BE ON ANTIBIOTICS AT THIS TIME. - Differential Dx/Diagnosis Provider Diagnosis: Acute serous otitis media of left ear, Asthma Discharge ED - Sign-Out/Discharge Documenting (check all that apply): Patient Departure All imaging exams completed and their final reports reviewed: No Studies - Discharge Plan Condition: Stable Disposition: HOME Prescriptions: Budesonide/Formote 160/4.5(NF) [Symbicort 160/4.5 (NF)] 2 puff INH BID #1 mdi DOXYcycline CAP(*) [DOXYcycline 100MG CAP(*)] 100 mg PO BID #20 cap Patient Education Materials: Asthma (ED), Serous Otitis Media (ED) Referrals: Sapna Sinha MD [Primary Care Provider] - Additional Instructions: FOLLOW UP WITH YOUR DOCTOR. GET RECHECKED SOONER IF YOUR CONDITION WORSENS OR ANY QUESTIONS OR CONCERNS. - Billing Disposition and Condition Condition: STABLE Disposition: Home
== END 2019-01-03 18:31 | disposition home or self-care (01) ==
LOC: UCEAST 16:43
DX: H65.02 Acute serous otitis media, left ear (principal); J45.909 Unspecified asthma, uncomplicated; E11.9 Type 2 diabetes mellitus without complications; I10 Essential (primary) hypertension; Z88.5 Allergy status to narcotic agent; Z91.040 Latex allergy status; Z88.8 Allergy status to other drugs, medicaments and biological substances; Z88.1 Allergy status to other antibiotic agents; Z88.0 Allergy status to penicillin; Z91.09 Other allergy status, other than to drugs and biological substances
CPT/HCPCS: 99212; G0463

== ENCOUNTER 2019-02-22 16:02 | Emergency (ER) | payer MEDICARE, MEDICAID ==
[2019-02-22 17:31] VITALS: BP 146/88
--- NOTE | 2019-02-22 18:01 | UC ---
Ear Complaint HPI - HPI Summary HPI Summary: 58 yo woman with severe hearing loss, comes today for assessment of bilateral ear pain and popping. communication during the visit was primarily by written notes, which she prefers. Reviewed: was treated in November with doxycycline when she presented with cough and ear pain. Overall, these symptoms are better at this time, and she wanted to be checked. Her main concern is that she has had some pain with stool passage and some perianal swelling, with a known history of hemorrhoids. - History of Current Complaint Chief Complaint: UCGeneralIllness Stated Complaint: NEEDS MED REFILL Time Seen by Provider: 02/22/19 17:53 Hx Obtained From: Patient Hx Last Menstrual Period: post Onset/Duration: Gradual Onset, Lasting Days - 2 Severity Initially: Mild Severity Currently: Mild Pain Intensity: 2 Alleviating Factors: Nothing - Allergies/Home Medications Allergies/Adverse Reactions: Allergies Allergy/AdvReac Type Severity Reaction Status Date / Time hydrocodone Allergy Severe Vomiting Verified 02/22/19 17:33 latex Allergy Severe Rash Verified 02/22/19 17:33 morphine Allergy Severe Unknown Verified 02/22/19 17:33 Reaction Details Sulfa (Sulfonamide Allergy Severe UNK Verified 02/22/19 17:33 Antibiotics) tramadol Allergy Severe Difficulty Verified 02/22/19 17:33 Breathing acetaminophen Allergy UNK Verified 02/22/19 17:33 azithromycin Allergy Unknown Verified 02/22/19 17:33 Reaction Details clarithromycin Allergy UNK Verified 02/22/19 17:33 diphenhydramine Allergy Itching Verified 02/22/19 17:33 [From Benadryl] Penicillins Allergy UNK Verified 02/22/19 17:33 NUTS Allergy Severe Rash Uncoded 02/22/19 17:33 TAPE: SILK OR ADHESIVE Allergy Severe Rash Uncoded 02/22/19 17:33 Home Medications: Home Medications Clobetasol 0.05% OINT* 1 applic TOPICAL BID 02/22/19 [History Confirmed 02/22/19 ] Hydrocortisone 1% Oint(NF) [Hydrocortisone 1% Oint (NF)] 1 gm TOPICAL BID PRN [History Confirmed 02/22/19] Losartan TAB* [Cozaar TAB*] 50 mg PO DAILY 02/22/19 [History Confirmed 02/22/19] Mometasone Furoate [Elocon] 0.1 % TOPICAL BID PRN 02/22/19 [History Confirmed ] Nystatin TOP POWDER* 1 applic TOPICAL BID PRN 02/22/19 [History Confirmed ] Sitagliptin Phos/Metformin HCl [Janumet 50-1000 mg] 1 tab PO DAILY 02/22/19 [ History Confirmed 02/22/19] PMH/Surg Hx/FS Hx/Imm Hx Endocrine History: Diabetes Cardiovascular History: Hypertension Respiratory History: Asthma Other History Of: Negative For: HIV, Hepatitis B, Hepatitis C, Anticoagulant Therapy - Surgical History Surgical History: Yes Surgery Procedure, Year, and Place: tonsils; breast reduction; tubal ligation; Gall Bladder, R wrist. LEFT Shoulder. Surgery under her Chin, Cant recall for what. right arm surgery 2013. pins removed from elbow 2014 - Family History Known Family History: Positive: Cardiac Disease, Hypertension, Diabetes, Other - Asthma, Non-Contributory - Social History Occupation: Disabled Lives: Assisted Living Alcohol Use: None Alcohol Amount: MAYBE A FEW A YEAR Substance Use Type: None Smoking Status (MU): Never Smoked Tobacco Have You Smoked in the Last Year: No When Did the Patient Quit Smoking/Using Tobacco: 2010 Household Exposure Type: Cigarettes - Immunization History Most Recent Influenza Vaccination: 12/09 Most Recent Tetanus Shot: unsure Hx Tetanus, Diphtheria Vaccination: Yes Vaccination Up to Date: Yes Review of Systems All Other Systems Reviewed And Are Negative: Yes Constitutional: Positive: Negative Skin: Positive: Negative Eyes: Positive: Negative ENT: Positive: Other - overall ear symptoms are improving. Respiratory: Positive: Cough - chronic cough with hx of COPD; she is taking Symbicort regularly. Does have a persistent dry cough. Cardiovascular: Positive: Negative Gastrointestinal: Positive: Diarrhea - some loose stool. Genitourinary: Positive: Negative Motor: Positive: Negative Neurovascular: Positive: Negative Musculoskeletal: Positive: Negative Neurological: Positive: Negative Psychological: Positive: Negative Is Patient Immunocompromised?: No Physical Exam Triage Information Reviewed: Yes Appearance: No Pain Distress, Obese - Overweight woman, casually dressed, who communicates via written notes. She is in no acute distress. Vital Signs: Initial Vital Signs Temp 97.8 F 02/22/19 17:21 Pulse 77 02/22/19 17:21 Resp 16 02/22/19 17:21 BP 146/88 02/22/19 17:21 Pulse Ox 98 02/22/19 17:21 Eyes: Positive: Conjunctiva Clear ENT: Positive: Pharynx normal, TM dull - bilateral serous fluid. Dental Exam: Normal Neck: Positive: Supple, Nontender, No Lymphadenopathy Respiratory: Positive: Lungs clear, Normal breath sounds, No respiratory distress Cardiovascular: Positive: RRR, No Murmur Abdomen Description: Positive: Nontender, No Organomegaly, Soft, Other: - Perianal area with mild erythema, small external hemorrhoid about 1 cm in the 6 o'clock position. Musculoskeletal Exam: Normal Neurological: Positive: Alert, Muscle Tone Normal Psychological Exam: Normal Skin Exam: Normal Ear Complaint Course/Dx - Course Course Of Treatment: Recommended cream for external hemorrhoids, continue monitoring. Reassured that her ear exam and lung exam are within normal limits and she does not need antibiotics or additional treatment. - Differential Dx/Diagnosis Differential Diagnosis/HQI/PQRI: Bronchitis, Otitis Media, Other - hemorrhoids. Provider Diagnosis: Hemorrhoids without complication Discharge ED - Sign-Out/Discharge Documenting (check all that apply): Patient Departure All imaging exams completed and their final reports reviewed: No Studies - Discharge Plan Condition: Good Disposition: HOME Prescriptions: Hydrocortisone [Proctozone-Hc] 2.5 % EX BID #30 gm Patient Education Materials: Hemorrhoids (ED) Referrals: Sapna Sinha MD [Primary Care Provider] - Additional Instructions: Your lung exam today is normal: you are not wheezing. Your blood pressure was a little elevated today at 146/88--please ensure that you have a follow up blood pressure check within the month with your primary care doctor. FOR HEMORRHOIDS: use the prescribed cream on the OUTSIDE because you have an external hemorrhoid (You do NOT need to use the small tube that would allow you to insert the cream into the rectum. Use this TWICE DAILY until the pain decreases, which will take 3 to 5 days. You will still be able to feel the hemorrhoid on the outside. - Billing Disposition and Condition Condition: GOOD Disposition: Home
== END 2019-02-22 18:50 | disposition home or self-care (01) ==
LOC: UCEAST 16:02
DX: K64.4 Residual hemorrhoidal skin tags (principal); E11.9 Type 2 diabetes mellitus without complications; I10 Essential (primary) hypertension; J44.9 Chronic obstructive pulmonary disease, unspecified; J45.909 Unspecified asthma, uncomplicated; Z88.5 Allergy status to narcotic agent; Z91.040 Latex allergy status; Z88.2 Allergy status to sulfonamides; Z88.8 Allergy status to other drugs, medicaments and biological substances; Z88.1 Allergy status to other antibiotic agents; Z88.0 Allergy status to penicillin; Z91.018 Allergy to other foods; Z91.09 Other allergy status, other than to drugs and biological substances; Z79.899 Other long term (current) drug therapy; Z79.84 Long term (current) use of oral hypoglycemic drugs
CPT/HCPCS: 99212; G0463